=== PATIENT | male | born 1945 | race Two or more races ===

== ENCOUNTER 2018-04-15 10:08 | Inpatient (IN) | payer MEDICARE, OTHER ==
[~2018-04-15] VITALS: Ht 167.6 cm; Wt 65.8 kg
--- NOTE | 2018-04-15 10:10 | NUR ---
ALYSIA 4 SEASONS D/T MULTIPLE WOUNDS: SACRAL, BILATERAL LOWER EXT., LFA , VSS , AOX1-2 GREEK SPEAKING , WILL CONTINUE TO MONITOR
--- NOTE | 2018-04-15 10:15 | NUR ---
BLOOD SPECIMEN , WOUND CULTURE OBTAINED , LABELED AND SENT TO LAB , ATTACHED PT TO MONITOR , VSS , WILL CONTINUE TO MONITOR
--- NOTE | 2018-04-15 10:15 | NUR ---
RECEIVED WITH GARCIA CATHETHER FROM [facility] , DRAINING WITH CLEAR YELLOW URINE ,
[2018-04-15 10:50] LABS: BASOPHILS # (AUTO) 0.1 /CMM (0.0-0.2); BASOPHILS % (AUTO) 0.9 % (0.0-2.0); EOSINOPHILS % (AUTO) 3.7 % (0.0-6.0); HEMATOCRIT 33 % (39-51); HEMOGLOBIN 11.3 g/dL (13.5-17.5); LYMPHOCYTES # (AUTO) 1.7 /CMM (0.8-4.8); LYMPHOCYTES % (AUTO) 16.7 % (20.0-44.0); MEAN CORPUSCULAR HEMOGLOBIN 30 PG (26.0-33.0); MEAN CORPUSCULAR HGB CONC 34 g/dl (31.0-36.0); MEAN CORPUSCULAR VOLUME 88 fL (80-96); MONOCYTES # (AUTO) 0.4 /CMM (0.1-1.30); MONOCYTES % (AUTO) 3.7 % (2.0-12.0); NEUTROPHILS # (AUTO) 7.6 /CMM (1.8-8.9); PLATELET COUNT (AUTO) 484 /CMM (150-450); RDW COEFFICIENT OF VARIATION 14.1 (11.5-15.0); RED BLOOD CELL COUNT(AUTO) 3.79 MIL/uL (4.5-6.0); WHITE BLOOD COUNT (AUTO) 10.2 K/uL (4.3-11.0)
[2018-04-15 11:00] LABS: CALCIUM, SERUM 9.3 mg/dL (8.5-10.1); CARBON DIOXIDE 29 mmol/L (21-32); CHLORIDE 101 mmol/L (98-107); CREATININE 0.8 mg/dL (0.6-1.3); GLUCOSE 131 mg/dL (74-106); POTASSIUM 4.2 mmol/L (3.5-5.1); SODIUM SERUM 135 mmol/L (136-145); UREA NITROGEN, BLOOD 11 mg/dL (7-18)
[2018-04-15] MEDS ORDERED: IV NS 0.9% 500 ML BAG IV ONE (11:00)
[2018-04-15 11:07] LABS: INR 0.97 (0.85-1.15)
[2018-04-15 11:08] LABS: ALANINE AMINOTRANSFERASE 34 U/L (12-78); ALBUMIN 2.9 g/dL (3.4-5.0); ALKALINE PHOSPHATASE 87 U/L (46-116); ASPARTATE AMINOTRANSFERASE 17 U/L (15-37); BILIRUBIN,DIRECT 0.1 mg/dL (0.0-0.2); BILIRUBIN,TOTAL 0.2 mg/dL (0.2-1.0); TOTAL PROTEIN, SERUM 7.6 g/dL (6.4-8.2); TROPONIN I < 0.017 ng/mL (0.00-0.056)
[2018-04-15] MEDS ORDERED: PANT40TA2 PO (11:09)
[2018-04-15] MEDS ORDERED: HYDR-552 PO (11:09)
[2018-04-15] MEDS ORDERED: ASCO500T9 PO (11:09)
[2018-04-15] MEDS ORDERED: GABA300C PO (11:09)
[2018-04-15] MEDS ORDERED: BISA10SU8 RC (11:09)
[2018-04-15] MEDS ORDERED: ACET325C5 PO (11:09)
[2018-04-15] MEDS ORDERED: ZINC220T PO (11:09)
[2018-04-15] MEDS ORDERED: ASPI-1152 PO (11:09)
[2018-04-15] MEDS ORDERED: CRAN500C4 PO (11:09)
[2018-04-15] MEDS ORDERED: METO25TA20 GT (11:09)
[2018-04-15] MEDS ORDERED: AMLO5TAB4 PO (11:09)
[2018-04-15] MEDS ORDERED: CLOP75TA15 PO (11:09)
[2018-04-15] MEDS ORDERED: MULT1TAB73 PO (11:09)
[2018-04-15] MEDS ORDERED: FLUO20CA36 PO (11:09)
[2018-04-15] MEDS ORDERED: NA P133E RC (11:09)
[2018-04-15] MEDS ORDERED: ATOR20TA PO (11:09)
[2018-04-15] MEDS ORDERED: ENOX40DI SQ (11:09)
[2018-04-15] MEDS ORDERED: MAGN400O6 PO (11:09)
[2018-04-15] MEDS ORDERED: CRAN500C5 PO ×2 (11:11→11:44)
[2018-04-15] MEDS ORDERED: FERR325T24 PO ×2 (11:14→11:44)
--- NOTE | 2018-04-15 11:14 | NUR ---
VERIFIED WITH DR VEGA IF SHE WANTS TO ORDER WOUND CULTIRE FOR THE RIGHT HEEL NOTED WITH MINIMAL YELLOW DRAINAIGE , OK WITH IT
--- NOTE | 2018-04-15 11:15 | NUR ---
NOTIFIED DR VEGA REGARDING LACTIC ACID OF 2.2 , RECEIVED ORDER OF IV ZOSYN ,
[2018-04-15] MEDS ORDERED: IPRA0.2S9 IH (11:22)
[2018-04-15] MEDS ORDERED: PIPERACILLIN /TAZOBACTAM 3.375 G in IV D5W 50 ML IV ONE (11:30)
[2018-04-15] MEDS ORDERED: ONDA4SOL2 PO (11:32)
[2018-04-15] MEDS ORDERED: LEVA1.2528 IH (11:32)
[2018-04-15] MEDS ORDERED: COLL30OI TP (11:32)
--- NOTE | 2018-04-15 12:06 | NUR ---
[facility] - FITTING ROOM SUPERVISOR DR. DHILLON
--- NOTE | 2018-04-15 13:10 | NUR ---
RPOERT GIVEN TO LAUREN IRWIN FOR CONTINUITY OF CARE , ALL QUESTIONS ANSWERED . VSS STABLE
--- NOTE | 2018-04-15 14:00 | NUR ---
SLURRY CONTROL TENDER NOTE RECEIVED PT FROM ER. PT IS STABLE AND RESTING IN BED. NO S/S OF RESP DISTRESS OR SOB. PT IS ON 2L O2 VIA NC. VSS. WOUNDS PRESENT ON BILATERAL HIPS, SACRUM, RIGHT HEEL AND LEFT ANKLE. WOUND PHOTOS TAKEN AND PLACED IN CHART. ADMISSION ORDERS RECEIVED. SAFETY MEASURES IN PLACE, CALL LIGHT WITHIN REACH. WILL ENDORSE TO HOME AGENT FOR CHEN.
[2018-04-15 16:00] VITALS: BP 98/59
--- NOTE | 2018-04-15 18:43 | NUR ---
RN CLOSING NOTES PT IN BED RESTING. NO S/S OF RESP DISTRESS OR SOB. NO C/O PAIN AT THIS TIME. PT IS TO HAVE DEBRIDEMENT OF SACRAL AND BILATERAL HIP WOUNDS ON 04/16/18. VERBAL CONSENT FOR PROCEDURE OBTAINED. ALL PT NEEDS ANTICIPATED AND MET, SAFETY MEASURES IN PLACE, CALL LIGHT WITHIN REACH. WILL ENDORSE TO DRUG AND ALCOHOL COUNSELOR FOR CHEN.
[2018-04-15] MEDS: IV NS 0.9% 1,000 ML IV PRN (19:00)
[2018-04-15] MEDS: ZOSYN IVPB 3.375 G in IV D5W 50ml IV SCH (19:00)
--- NOTE | 2018-04-15 19:45 | NUR ---
RN NOTES SPOKE WITH PATIENT'S DAUGHTER. DAUGHTER STATED THAT SHE WOULD ONLY GIVE CONSENT FOR LOCAL ANESTHESIA. WILL ENDORSE TO DAY SHIFT NURSE TO FOLLOW UP ON ANESTHESIA THAT WILL BE USED FOR THE DEBRIDEMENT.
[2018-04-15 20:00] VITALS: BP 128/72
--- NOTE | 2018-04-15 20:00 | NUR ---
RN NOTES CALLED DR DHILLON. PER MESSAGING SERVICE UNAVAILABLE UNLESS EMERGENCY. WILL ENDORSE TO DAY SHIFT.
--- NOTE | 2018-04-15 20:15 | NUR ---
RN OPENING NOTES PT AWAKE AND RESTING IN BED. PT ALERT AND ORIENTED TO SELF. NO APPARENT S/S OF PAIN, DISTRESS OR SOB AT THIS TIME. PER DAY SHIFT NURSE PT WILL HAVE DEBRIDEMENT OF SACRAL AND BILATERAL HIP WOUNDS TOMORROW 04/16/18. WILL CALL DAUGHTER FOR CONSENT. PT HAS A RIGHT FOREARM IV #18 RUNNING NS @75ML/HR. PT TOLERATING FLUIDS WELL. SAFETY PRECAUTIONS IN PLACE, BED IN LOWEST LOCKED POSITION, X3 SIDERAILS UP. CALL LIGHT WITHIN REACH WILL CONTINUE TO MONITOR.
[2018-04-16] VITALS: BP 133/79
[2018-04-16] MEDS: ZOSYN IVPB 3.375 G in IV D5W 50ml IV SCH ×4 (00:17→17:22)
[2018-04-16] MEDS: IV NS 0.9% 1,000 ML IV PRN ×2 (02:40→18:30)
[2018-04-16 04:00] VITALS: BP 96/40
[2018-04-16 06:14] LABS: BASOPHILS % (AUTO) 0.4 % (0.0-2.0); EOSINOPHILS % (AUTO) 5.2 % (0.0-6.0); HEMATOCRIT 32 % (39-51); HEMOGLOBIN 10.6 g/dL (13.5-17.5); LYMPHOCYTES # (AUTO) 1.8 /CMM (0.8-4.8); LYMPHOCYTES % (AUTO) 19.1 % (20.0-44.0); MEAN CORPUSCULAR HEMOGLOBIN 30 PG (26.0-33.0); MEAN CORPUSCULAR HGB CONC 33 g/dl (31.0-36.0); MEAN CORPUSCULAR VOLUME 91 fL (80-96); MONOCYTES # (AUTO) 0.6 /CMM (0.1-1.30); MONOCYTES % (AUTO) 6.3 % (2.0-12.0); NEUTROPHILS # (AUTO) 6.4 /CMM (1.8-8.9); PLATELET COUNT (AUTO) 394 /CMM (150-450); RDW COEFFICIENT OF VARIATION 15.1 (11.5-15.0); RED BLOOD CELL COUNT(AUTO) 3.53 MIL/uL (4.5-6.0); WHITE BLOOD COUNT (AUTO) 9.2 K/uL (4.3-11.0)
--- NOTE | 2018-04-16 06:14 | NUR ---
RN NOTES PT TELE MONITOR NOTED 5.57 SEC OF ASYSTOLE. SUKHDEV OKEEFE. WILL FOLLOW UP.
[2018-04-16 06:26] LABS: CALCIUM, SERUM 8.7 mg/dL (8.5-10.1); CARBON DIOXIDE 26 mmol/L (21-32); CHLORIDE 104 mmol/L (98-107); CREATININE 0.8 mg/dL (0.6-1.3); GLUCOSE 102 mg/dL (74-106); MAGNESIUM 1.9 mg/dL (1.8-2.4); PHOSPHORUS 3.1 mg/dL (2.5-4.9); POTASSIUM 3.9 mmol/L (3.5-5.1); SODIUM SERUM 139 mmol/L (136-145); UREA NITROGEN, BLOOD 8 mg/dL (7-18)
--- NOTE | 2018-04-16 06:43 | NUR ---
RN NOTES DR SEVERINO RETURNED CALL. NO NEW ORDERS. CONTINUE TELE MONITORING.
--- NOTE | 2018-04-16 06:52 | NUR ---
RN CLOSING NOTES PT RESTING IN BED. PT ALERT AND ORIENTED TO SELF. NO APPARENT S/S OF PAIN, DISTRESS OR SOB. PT SCHEDULED FOR 1500 DEBRIDEMENT. WILL ENDORSE PROCEDURAL CONSENT TO DAY SHIFT PER DAUGHTERS REQUEST OF LOCAL ANESTHESIA ONLY. PT HAS A RIGHT FOREARM IV #18 RUNNING NS @75ML/HR. PT TOLERATING FLUIDS WELL. ALL PATIENT NEEDS MET OVERNIGHT. SAFETY PRECAUTIONS IN PLACE, BED IN LOWEST LOCKED POSITION, X3 SIDE RAILS UP. CALL LIGHT WITHIN REACH WILL ENDORSE TO DAY SHIFT NURSE FOR CONTINUITY OF CARE.
--- NOTE | 2018-04-16 07:10 | NUR ---
RN NOTES PT IS LAYING DOWN IN BED,AWAKE AND RESTING COMFORTABLY. PT ON RA, RESPIRATIONS ARE EVEN AND UNLABORED. IV ON RFA INTACT AND RUNNING NS @ 75 ML/HR. GARCIA CATHETER IS IN PLACE AND DRAINING TO GRAVITY. NO SIGNS OF DISTRESS NOTED. SAFETY MEASURES ARE IN PLACE, CALL LIGHT IS IN REACH. WILL CONTINUE TO MONITOR.
[2018-04-16 08:00] VITALS: BP 121/81
[2018-04-16] MEDS ORDERED: BISACODYL SUPP (10 MG) 10 MG/SUPP.RECT SUPP.RECT RC PRN (08:00)
[2018-04-16] MEDS ORDERED: MAGNESIUM HYDROXIDE 30 ML UDC PO PRN (08:00)
[2018-04-16] MEDS: ASPIRIN EC 81 MG TABLET.DR PO SCH (08:08)
[2018-04-16] MEDS: CLOPIDOGREL BISULFATE 75 MG TABLET PO SCH (08:08)
[2018-04-16] MEDS: GABAPENTIN 300 MG CAPSULE PO SCH ×3 (08:08→17:00)
[2018-04-16] MEDS: FLUOXETINE HCL 20 MG CAPSULE PO SCH (08:09)
[2018-04-16] MEDS: ASCORBIC ACID 500 MG TABLET PO SCH ×2 (08:09→17:00)
[2018-04-16] MEDS ORDERED: ACETAMINOPHEN 325 MG TABLET PO PRN (08:30)
[2018-04-16 08:36] LABS: THYROID STIMULATING HORMONE 3.281 uIU/mL (0.358-3.74)
[2018-04-16] MEDS: ENOXAPARIN SODIUM 40 MG/0.4 ML DISP.SYRIN SQ SCH (08:54)
[2018-04-16] MEDS ORDERED: COLLAGENASE 15 GM TUBE TP SCH (09:00)
[2018-04-16] MEDS ORDERED: LIDOCAINE 0.5%-EPI 1:200,000 50 ML VIAL ONE (15:14)
[2018-04-16 16:00] VITALS: BP 126/77
[2018-04-16] MEDS: FERROUS SULFATE (325 MG) 325 MG/TAB TABLET PO SCH (17:00)
--- NOTE | 2018-04-16 18:44 | NUR ---
RN NOTES PT IS LAYING DOWN IN BED, RESTING COMFORTABLY. PT ON 2L O2, RESPIRATIONS ARE EVEN AND UNLABORED. IV ON RFA INTACT AND RUNNING NS @ 75ML/HR. WOUND DEBRIDEMENT DONE BY DR. PAINTER AND DR. AKINS AND DRESSINGS CHANGED. GARCIA CATHETER IS IN PLACE AND DRAINING TO GRAVITY. NO SIGNS OF DISTRESS NOTED. SAFETY MEASURES ARE IN PLACE, CALL LIGHT IS IN REACH. WILL ENDORSE TO HYBRID CORN BREEDER RN FOR CONTINUITY OF CARE.
--- NOTE | 2018-04-16 19:20 | NUR ---
MS RN NOTES RECEIVED ON BED A/O X 1-2, WITH PERIODS OF CONFUSION.S/P WOUND DEBRIDEMENT ON BILATERAL HIP,SACRUM AND RIGHT HEEL.DRESSING INTACT AND DRY.NS AT 75ML/HR RATE IN PROGRESS VIA IV PUMP ON RFA.WILL CONTINUE TO MONITOR STATUS.
[2018-04-16 20:00] VITALS: BP 145/85
--- NOTE | 2018-04-16 20:30 | NUR ---
MS RN NOTES NEW SALINE LOCK PLACE ON RIGHT HAND #22,SECURED WITH KERLIX.SAME IV FLUIDS INFUSING NS AT 75ML/HR RATE VIA IV PUMP.
--- NOTE | 2018-04-16 20:40 | NUR ---
MS RN NOTES PATIENT PULLED OUT HIS IV ACCESS WITH SLIGHT BLEEDING NOTED.
--- NOTE | 2018-04-17 | NUR ---
MS RN NOTES DUE IV ZOSYN IVPN HUNG,INFUSING VIA IV PUMP.
[2018-04-17] MEDS: ZOSYN IVPB 3.375 G in IV D5W 50ml IV SCH ×4 (00:01→17:58)
--- NOTE | 2018-04-17 00:12 | NUR ---
MS RN NOTES PATIENT PULLED OUT DRESSING ON RIGHT HIP.PRESSURE DRESSING APPLIED.REPOSITION.
--- NOTE | 2018-04-17 00:30 | NUR ---
MS RN NOTES TRIED TO PAGE DR LOGAN UNDER WOUND MANAGEMENT,NOT ON THE OPTION,LEAVE MESSAGE ON VOICEMAIL,AWAITING TO CALL BACK.
--- NOTE | 2018-04-17 01:00 | NUR ---
MS RN NOTES STILL BLEEDING RIGHT HIP WOUND,SHOWED TO THE CHARGE NURSE,PRESSURE DRESSING RE IN FORCED.HAND MITTENS APPLIED TO RIGHT HAND.PATIENT TRIED TO TAKE OUT DRESSING ON RIGHT HIP.
--- NOTE | 2018-04-17 01:50 | NUR ---
MS RN NOTES MD SAFETY TEACHER PAGE FOR PAIN MANAGEMENT.
--- NOTE | 2018-04-17 01:52 | NUR ---
MS RN NOTES DR MIKKI SNIDER CALLED BACK,CUSTOMER CARE SPECIALIST FOR TONIGHT WITH ORDER OF MORPHINE 2MG Q 4 HOURS PRN FOR SEVERE PAIN NOTED AND CARRIED OUT.
[2018-04-17] MEDS: MORPHINE SULFATE INJ 2 MG/ML DISP.SYRIN IV PRN ×3 (02:08→18:31)
--- NOTE | 2018-04-17 02:08 | NUR ---
MS RN NOTES PAIN MANAGEMENT MOANING IN PAIN,MORPHINE 2MG IV GIVEN ORDERED.
[2018-04-17 06:44] LABS: BASOPHILS % (AUTO) 0.4 % (0.0-2.0); EOSINOPHILS % (AUTO) 0.4 % (0.0-6.0); HEMATOCRIT 31 % (39-51); HEMOGLOBIN 10.4 g/dL (13.5-17.5); LYMPHOCYTES # (AUTO) 1.4 /CMM (0.8-4.8); LYMPHOCYTES % (AUTO) 12.9 % (20.0-44.0); MEAN CORPUSCULAR HEMOGLOBIN 30 PG (26.0-33.0); MEAN CORPUSCULAR HGB CONC 33 g/dl (31.0-36.0); MEAN CORPUSCULAR VOLUME 91 fL (80-96); MONOCYTES # (AUTO) 0.6 /CMM (0.1-1.30); MONOCYTES % (AUTO) 5.5 % (2.0-12.0); NEUTROPHILS # (AUTO) 8.6 /CMM (1.8-8.9); NEUTROPHILS % (AUTO) 80.8 % (43.0-81.0); PLATELET COUNT (AUTO) 451 /CMM (150-450); RDW COEFFICIENT OF VARIATION 15.5 (11.5-15.0); RED BLOOD CELL COUNT(AUTO) 3.44 MIL/uL (4.5-6.0); WHITE BLOOD COUNT (AUTO) 10.7 K/uL (4.3-11.0)
--- NOTE | 2018-04-17 06:52 | NUR ---
MS RN NOTES SILL WITH MINIMAL BLEEDING ON RIGHT HIP,RE IN FORCED DRESSING.REPOSITION PER PROTOCOL.TRIED TO CALL SURGERY CURT FIND OUT IF DR LOGAN IS AROUND ALREADY BUT HE'S NOT THER YET.STILL WITH EPISODE OF CONFUSION.WILL ENDORSE TO DAY NURSE FOR CHEN.
[2018-04-17 07:03] LABS: CARBON DIOXIDE 23 mmol/L (21-32); CHLORIDE 102 mmol/L (98-107); CREATININE 0.7 mg/dL (0.6-1.3); GLUCOSE 153 mg/dL (74-106); MAGNESIUM 1.9 mg/dL (1.8-2.4); PHOSPHORUS 2.7 mg/dL (2.5-4.9); POTASSIUM 3.5 mmol/L (3.5-5.1); SODIUM SERUM 138 mmol/L (136-145); UREA NITROGEN, BLOOD 5 mg/dL (7-18)
[2018-04-17] MEDS: PANTOPRAZOLE 40 MG TABLET.DR PO SCH (07:30)
[2018-04-17 08:00] VITALS: BP 95/65
--- NOTE | 2018-04-17 08:00 | NUR ---
MS RN NOTES PATIENT IN BED RESTING NO SOB OR ACUTE DISTRESS NOTED. PATIENT ALERT, ORIENTED X1 CONFUSED. PERIPHERAL IV INTACT PATENT. BED IN LOW LOCKED POSITION. CALL LIGHT WITHIN REACH. PATIENT VERBALIZES PAIN TO BLE. WILL CONTINUE TO MONITOR CLOSELY.
[2018-04-17] MEDS: FERROUS SULFATE (325 MG) 325 MG/TAB TABLET PO SCH ×2 (09:00→16:26)
[2018-04-17] MEDS: FLUOXETINE HCL 20 MG CAPSULE PO SCH (09:00)
[2018-04-17] MEDS: GABAPENTIN 300 MG CAPSULE PO SCH ×3 (09:00→16:26)
[2018-04-17] MEDS: ASPIRIN EC 81 MG TABLET.DR PO SCH (09:00)
[2018-04-17] MEDS: ASCORBIC ACID 500 MG TABLET PO SCH ×2 (09:00→16:25)
[2018-04-17] MEDS: CLOPIDOGREL BISULFATE 75 MG TABLET PO SCH (09:00)
[2018-04-17] MEDS: ENOXAPARIN SODIUM 40 MG/0.4 ML DISP.SYRIN SQ SCH (11:00)
[2018-04-17] MEDS: IV NS 0.9% 1,000 ML IV PRN (11:15)
[2018-04-17] MEDS: DAKINS HALF STRENGTH (0.25%) 480 ML BOTTLE TOP SCH (13:03)
[2018-04-17 16:00] VITALS: BP 100/68
[2018-04-17] MEDS: ENSURE ENLIVE 237 ML LIQUID (VANILLA) PO SCH (17:00)
--- NOTE | 2018-04-17 19:20 | NUR ---
MS RN OPENING NOTE Patient was seen sitting in high-Marquis's position in bed AAOx2, breathing on 2L O2 NC with no SOB, and no signs of acute distress. Georges cath is draining clear, yellow urine. NS at 75ml/hr is running through the right hand IV with no signs of leakage or infiltration. Bed is low/locked, two side rails up, and call dunne within reach. Patient remains comfortable and has no immediate needs at this time. Will continue to monitor.
--- NOTE | 2018-04-17 19:25 | NUR ---
MS RN NOTES PATIENT IN BED RESTING NO SOB OR ACUTE DISTRESS NOTED. ALL DUE MEDICATIONS ADMINISTERED. ALL NEEDS MET. WILL ENDORSE TO PM SHIFT CHEN.
[2018-04-17] MEDS ORDERED: FEE PK DOSING 1 MIN EA MC ONE (19:48)
[2018-04-17 20:00] VITALS: BP 123/73
[2018-04-17] MEDS: TOBRAMYCIN 100 MG in IV D5W 50 ML IV SCH (20:40)
[2018-04-18] MEDS: IV NS 0.9% 1,000 ML IV PRN (03:03)
--- NOTE | 2018-04-18 07:20 | NUR ---
MS RN CLOSING NOTE Patient slept well overnight with no complications and remains in stable condition. Wound care was provided as ordered overnight. All patient needs have been addressed. Patient care endorsed to day shift nurse.
--- NOTE | 2018-04-18 07:30 | NUR ---
AM RN NOTE Received patient awake in his bed, no SOB noted resp even and non-labored. IV site intact and patent. Bed in low locked position. Will continue to monitor.
--- NOTE | 2018-04-18 07:45 | NUR ---
PATIENT RESTING IN BED. NONLABORED BREATHING NOTED ON ROOM AIR. PATIENT AOX2-3. IV SITE ON RIGHT HAND GAUGE 20 PATENT AND INTACT. GARCIA CATHETER DRAINING URINE YELLOW CLOUDY. BED IN LOWEST LOCKED POSITION. CALL LIGHT WITHIN REACH. RECEIVED REPORT FROM JUNI NOW
[2018-04-18 08:00] VITALS: BP 134/83
--- NOTE | 2018-04-18 08:03 | NUR ---
AM RN NOTE Care endorsed to Nurse (Nishi).
[2018-04-18 08:04] LABS: CALCIUM, SERUM 8.5 mg/dL (8.5-10.1); CARBON DIOXIDE 24 mmol/L (21-32); CHLORIDE 106 mmol/L (98-107); CREATININE 0.6 mg/dL (0.6-1.3); GLUCOSE 108 mg/dL (74-106); POTASSIUM 3.2 mmol/L (3.5-5.1); SODIUM SERUM 141 mmol/L (136-145); UREA NITROGEN, BLOOD 2 mg/dL (7-18)
[2018-04-18] MEDS: PANTOPRAZOLE 40 MG TABLET.DR PO SCH (08:57)
[2018-04-18] MEDS: ASCORBIC ACID 500 MG TABLET PO SCH ×2 (09:04→16:56)
[2018-04-18] MEDS: FERROUS SULFATE (325 MG) 325 MG/TAB TABLET PO SCH ×2 (09:05→16:55)
[2018-04-18] MEDS: GABAPENTIN 300 MG CAPSULE PO SCH ×3 (09:05→16:56)
[2018-04-18] MEDS: FLUOXETINE HCL 20 MG CAPSULE PO SCH (09:06)
[2018-04-18] MEDS: ASPIRIN EC 81 MG TABLET.DR PO SCH (09:06)
[2018-04-18] MEDS: CLOPIDOGREL BISULFATE 75 MG TABLET PO SCH (09:07)
[2018-04-18] MEDS: ENOXAPARIN SODIUM 40 MG/0.4 ML DISP.SYRIN SQ SCH (09:08)
[2018-04-18] MEDS: TOBRAMYCIN 100 MG in IV D5W 50 ML IV SCH ×2 (09:58→21:00)
[2018-04-18] MEDS: DAKINS HALF STRENGTH (0.25%) 480 ML BOTTLE TOP SCH (09:58)
[2018-04-18] MEDS: ENSURE ENLIVE 237 ML LIQUID (VANILLA) PO SCH ×2 (09:58→16:57)
[2018-04-18] MEDS: POTASSIUM CHLORIDE 20 MEQ TAB.PRT.SR PO SCH ×3 (11:34→14:31)
--- NOTE | 2018-04-18 14:29 | NUR ---
PATIENT WAS REFUSING TO TAKE THIRD POTASSIUM DOSAGE. PATIENT EDUCATED AND BENEFITS AND RISKS EXPLAINED MULTIPLE TIMES PATIENT AGREED TO TAKE IT
--- NOTE | 2018-04-18 15:07 | NUR ---
RN NOTES: PER MD ORDERS, POTASSIUM LAB DRAW TO BE DONE TOMORROW AFTER REPLACEMENT PER PROTOCOL
[2018-04-18 16:00] VITALS: BP 104/55
--- NOTE | 2018-04-18 19:22 | NUR ---
RN NOTES: PATIENT RESTING IN BED. NONLABORED BREATHING NOTED ON ROOM AIR. PATIENT AOX2-3. IV SITE ON RIGHT HAND GAUGE 20 PATENT AND INTACT. GARCIA CATHETER DRAINING URINE YELLOW CLEARR. BED IN LOWEST LOCKED POSITION. CALL LIGHT WITHIN REACH. WOUND CARE DONE. PATIENT TURNED AND REPOSITIONED EVERY TWO HOURS PATIENT ENCOURAGED TO MEET NUTRITIONAL GOAL, PATIENT REFUSING TO EAT DINNER. SPOKE WITH AND SON- EDUCATED SON, , AND PATIENT ON BENEFITS AND RISKS OF MAINTAINING APPROPRIATE CALORIC INTAKE. PATIENT STILL REFUSING TO INCREASE INTAKE
--- NOTE | 2018-04-18 19:23 | NUR ---
RN NOTES ENDORSED TO NEXT RN
--- NOTE | 2018-04-18 19:30 | NUR ---
RN NOTES RECEIVED PT. AWAKE ON BED, A/OX2, DRESSING ON THE RIGHT HIP DRY AND INTACT, DENIES PAIN, NO SOB, BED IN LOCKED POSITION, CALL LIGHT WITHIN REACH, SIDERAILSUPX2, CONTINUE TO MONITOR
--- NOTE | 2018-04-18 20:00 | NUR ---
RN NOTES PT. REFUSED TO HAVE HIS V./S CHECKED.. EXPLAINED THE IMPORTANCE OF THIS BUT PT STILL REFUSING
--- NOTE | 2018-04-18 20:32 | NUR ---
RN NOTES PT IS REFUSING BLOOD DRAW FOR TOBRAMYCIN THROUGH TALKED TO THE PT. REGARDING THE IMPORTANCE OF HIS BLOOD DRAW , [facility] NURSE TALKED TO HIM WELL BUT PT. STILL REFUSED.. HE'S ALSO REFUSING HIS ANTIBIOTIC
[2018-04-19] VITALS: BP 148/75
[2018-04-19 00:05] VITALS: BP 148/75
[2018-04-19 05:59] LABS: BASOPHILS % (AUTO) 0.4 % (0.0-2.0); HEMATOCRIT 32 % (39-51); HEMOGLOBIN 10.7 g/dL (13.5-17.5); LYMPHOCYTES # (AUTO) 1.8 /CMM (0.8-4.8); LYMPHOCYTES % (AUTO) 24.5 % (20.0-44.0); MEAN CORPUSCULAR HEMOGLOBIN 30 PG (26.0-33.0); MEAN CORPUSCULAR HGB CONC 33 g/dl (31.0-36.0); MEAN CORPUSCULAR VOLUME 91 fL (80-96); MONOCYTES # (AUTO) 0.4 /CMM (0.1-1.30); MONOCYTES % (AUTO) 5.8 % (2.0-12.0); NEUTROPHILS # (AUTO) 4.7 /CMM (1.8-8.9); NEUTROPHILS % (AUTO) 63.3 % (43.0-81.0); PLATELET COUNT (AUTO) 476 /CMM (150-450); RDW COEFFICIENT OF VARIATION 15.1 (11.5-15.0); RED BLOOD CELL COUNT(AUTO) 3.52 MIL/uL (4.5-6.0); WHITE BLOOD COUNT (AUTO) 7.5 K/uL (4.3-11.0)
[2018-04-19 06:15] LABS: CALCIUM, SERUM 9.2 mg/dL (8.5-10.1); CARBON DIOXIDE 25 mmol/L (21-32); CHLORIDE 105 mmol/L (98-107); CREATININE 0.6 mg/dL (0.6-1.3); GLUCOSE 100 mg/dL (74-106); MAGNESIUM 1.8 mg/dL (1.8-2.4); PHOSPHORUS 2.3 mg/dL (2.5-4.9); POTASSIUM 3.7 mmol/L (3.5-5.1); SODIUM SERUM 142 mmol/L (136-145); UREA NITROGEN, BLOOD 1 mg/dL (7-18)
--- NOTE | 2018-04-19 06:48 | NUR ---
RN NOTES AWAKE, MORNING CARE RENDERED, CALL LIGHT WITHIN REACH, CINDYAILSUPX2, PT. NEEDS ATTENDED
--- NOTE | 2018-04-19 07:18 | NUR ---
RN NOTES PATIENT RESTING IN BED. NONLABORED BREATHING NOTED ON ROOM AIR. PATIENT AOX2-3. IV SITE ON RIGHT HAND GAUGE 20 PATENT AND INTACT. GARCIA CATHETER DRAINING URINE YELLOW CLEAR URINE. BED IN LOWEST LOCKED POSITION. CALL LIGHT WITHIN REACH.
[2018-04-19 08:00] VITALS: BP 164/81
--- NOTE | 2018-04-19 08:13 | NUR ---
SPOKE WITH HARISH FROM PHARMACY, INFORMED HER THAT PATIENT REFUSED PEAK AND TROUGH YESTERDAY WELL 2100 DOSE OF TOBRAMYCIN. PER HARISH, PHARMACIST, OK TO GIVE 0900 TOBRAMYCIN DOSE. PHARMACIST TO FOLLOW UP WITH MD REGARDING PEAK AND TROUGH
[2018-04-19 08:47] VITALS: BP 154/82
[2018-04-19] MEDS: ASCORBIC ACID 500 MG TABLET PO SCH ×2 (09:03→18:26)
[2018-04-19] MEDS: GABAPENTIN 300 MG CAPSULE PO SCH ×3 (09:04→18:26)
[2018-04-19] MEDS: FERROUS SULFATE (325 MG) 325 MG/TAB TABLET PO SCH ×2 (09:04→18:26)
[2018-04-19] MEDS: FLUOXETINE HCL 20 MG CAPSULE PO SCH (09:05)
[2018-04-19] MEDS: CLOPIDOGREL BISULFATE 75 MG TABLET PO SCH (09:06)
[2018-04-19] MEDS: ASPIRIN EC 81 MG TABLET.DR PO SCH (09:06)
[2018-04-19] MEDS: ENOXAPARIN SODIUM 40 MG/0.4 ML DISP.SYRIN SQ SCH (09:07)
[2018-04-19] MEDS: PANTOPRAZOLE 40 MG TABLET.DR PO SCH (09:09)
[2018-04-19] MEDS: DAKINS HALF STRENGTH (0.25%) 480 ML BOTTLE TOP SCH (09:13)
[2018-04-19] MEDS: ENSURE ENLIVE 237 ML LIQUID (VANILLA) PO SCH ×2 (09:13→18:27)
--- NOTE | 2018-04-19 09:40 | NUR ---
SPOKE TO HARISH FROM PHARMACY, HOLD 0900 TOBRAMYCIN DOSAGE TILL TOBRAMYCIN, RANDOM- RESULTS ARE AVAILABLE
--- NOTE | 2018-04-19 11:39 | NUR ---
SPOKE WITH LESLEY FROM LAB, TOBRAMYCIN RANDOM TO RESULT AROUND 1500. PHARMACY NOTIFIED. AWAITING RESPONSE FROM PHARMACY
--- NOTE | 2018-04-19 11:43 | NUR ---
SPOKE WITH HARISH FROM PHARMACY- WI TO GIVE DOSE OF AM TOBRAYMCIN TILL LAB RESULTS. VERBAL READBACK DONE
[2018-04-19 11:52] VITALS: BP 126/80
[2018-04-19] MEDS: TOBRAMYCIN 100 MG in IV D5W 50 ML IV SCH ×2 (12:13→20:48)
[2018-04-19] MEDS ORDERED: NEUTRA PHOS 1 POWD.PACKET PO ONE (13:00)
--- NOTE | 2018-04-19 14:25 | NUR ---
PATIENT NOW AGREED TO TAKE GABAPENTIN WELL NEUTRA PHOS. WAS REFUSING EARLIER. BENEFITS AND RISKS WERE DISCUSSED WITH PATIENT
--- NOTE | 2018-04-19 18:22 | NUR ---
PATIENT REFUSING WOUND CARE DRESSINGS. BENFITS AND RISKS EXPLAINED MULTIPLE TIMES. WOUND CARE OFFERED MULTIPLE TIMES THROUGHOUT SHIFT. PATIENT STILL REFUSING. PATIENT'S FAMILY EDUCATED WELL REGARDING INFECTION CONTROL PATIENT AGREED TO BE TURNED AND REPOSITIONED EVERY 2 HOURS
[2018-04-19] MEDS: FLUCONAZOLE (100 MG) 100 MG TABLET PO SCH (18:27)
--- NOTE | 2018-04-19 18:53 | NUR ---
SPOKE TO VISHAL NORIEGA BIG 6 DEALER. BIG 6 DEALER NOTIFIED THAT PATIENT REFUSING BLOOD DRAW FOR PEAK AND TROUGH. PER BIG 6 DEALER, HOLD 2100 DOSE FOR TONIGHT. ATTEMPT TO DRAW IT TOMORROW MORNING. VERBAL READBACK DONE. SPOKE TO ELIOT FROM PHARMACY- NOTIFIED HIM
--- NOTE | 2018-04-19 19:15 | NUR ---
RN NOTES PATIENT RESTING IN BED. NONLABORED BREATHING NOTED ON ROOM AIR. PATIENT AOX2-3. IV SITE ON RIGHT HAND GAUGE 20 PATENT AND INTACT. GARCIA CATHETER DRAINING URINE YELLOW CLEAR URINE. BED IN LOWEST LOCKED POSITION. CALL LIGHT WITHIN REACH. ENDORSED TO NEXT RN
--- NOTE | 2018-04-19 19:16 | NUR ---
ALIDA MARQUEZ NOTIFIED TO HOLD 2100 DOSE OF TOBRAMYCIN.
--- NOTE | 2018-04-19 19:25 | NUR ---
MS RN OPENING NOTES PATIENT IN BED ALERT ORIENTED X2. NO ACUTE DISTRESS NOTED. BREATHING UNLABORED. NO SOB NOTED. NO FACIAL GRIMACING NOTED. IV ACCESS PATENT AND INTACT. PT ON F/C DUE TO MULTIPLE WOUNDS. ACCORDING TO DAY SHIFT NURSE PT HAS BEEN REFUSING CARE DURING HER SHIFT. WILL CONTINUE CARE .
[2018-04-19 20:00] VITALS: BP 92/58
--- NOTE | 2018-04-19 20:49 | NUR ---
HELD 2100 TOBRAMYCIN PER JAZMÍN AND AND AM NURSE . PT REFUSED TOBRAMYCIN PEAK THROUGH.
--- NOTE | 2018-04-20 06:55 | NUR ---
MS RN CLOSING NOTES PATIENT IN BED ALERT ORIENTED X2. NO ACUTE DISTRESS NOTED. BREATHING UNLABORED. NO SOB NOTED. NO FACIAL GRIMACING NOTED. IV ACCESS PATENT AND INTACT. PT ON F/C DUE TO MULTIPLE WOUNDS. WOUND CARE IS DONE. BLOOD WORK FOR THE PT WAS DONE. SAFETY PRECAUTIONS IN PLACE, CALL LIGHT WITHIN REACH.
[2018-04-20 07:08] LABS: CALCIUM, SERUM 8.4 mg/dL (8.5-10.1); CARBON DIOXIDE 25 mmol/L (21-32); CHLORIDE 106 mmol/L (98-107); CREATININE 0.8 mg/dL (0.6-1.3); GLUCOSE 100 mg/dL (74-106); PHOSPHORUS 3.3 mg/dL (2.5-4.9); POTASSIUM 3.8 mmol/L (3.5-5.1); SODIUM SERUM 141 mmol/L (136-145); UREA NITROGEN, BLOOD 4 mg/dL (7-18)
--- NOTE | 2018-04-20 07:15 | NUR ---
MS/RN OPENING NOTE PATIENT ALERT AND ORIE SHILO X2. DENIES SOB. RESPIRATION REGULAR AND UNLABORED. PATIENT IN NO APPARENT DISTRESS. GARCIA CATH DRAINING FREELY. NO BLADDER DISTENSION NOTED. BED LOW AND LOCKED. SIDE RAILS UP X3. CALL LIGHT WITHIN REACH. WILL CONTINUE TO MONITOR.
[2018-04-20] MEDS: TOBRAMYCIN 100 MG in IV D5W 50 ML IV SCH ×2 (09:00→18:06)
[2018-04-20] MEDS: ENSURE ENLIVE 237 ML LIQUID (VANILLA) PO SCH ×2 (09:04→16:32)
[2018-04-20] MEDS: FERROUS SULFATE (325 MG) 325 MG/TAB TABLET PO SCH ×2 (09:05→16:30)
[2018-04-20] MEDS: ASCORBIC ACID 500 MG TABLET PO SCH ×2 (09:05→16:30)
[2018-04-20] MEDS: GABAPENTIN 300 MG CAPSULE PO SCH ×3 (09:05→16:30)
[2018-04-20] MEDS: FLUOXETINE HCL 20 MG CAPSULE PO SCH (09:05)
[2018-04-20] MEDS: CLOPIDOGREL BISULFATE 75 MG TABLET PO SCH (09:05)
[2018-04-20] MEDS: ASPIRIN EC 81 MG TABLET.DR PO SCH (09:05)
[2018-04-20] MEDS: PANTOPRAZOLE 40 MG TABLET.DR PO SCH (09:05)
[2018-04-20] MEDS: ENOXAPARIN SODIUM 40 MG/0.4 ML DISP.SYRIN SQ SCH (09:07)
--- NOTE | 2018-04-20 09:20 | NUR ---
MS/RN NOTE 0900 TOBRAMYCIN IV IS HELD DUE TO TOBRAMYCIN LAB WORK NOT DONE ON TIME DUE TO PATIENT REFUSAL. Addendum: 04/20/18 at 1528 by AUSTEN ALONSO RN ROD MENDOZA IS MADE AWARE.
[2018-04-20 09:35] VITALS: BP 117/73
[2018-04-20] MEDS: DAKINS HALF STRENGTH (0.25%) 480 ML BOTTLE TOP SCH (11:13)
[2018-04-20 14:00] VITALS: BP 106/67
--- NOTE | 2018-04-20 14:00 | NUR ---
MS/RN NOTE RECEIVED NEW ORDER TO DISCONTINUE TOBRAMYCIN IV. THE ORDER IS READ BACK, VERIFIED. NOTED AND CARRIED OUT.
[2018-04-20 16:32] VITALS: BP 115/74
[2018-04-20] MEDS: FLUCONAZOLE (100 MG) 100 MG TABLET PO SCH (16:40)
--- NOTE | 2018-04-20 17:00 | NUR ---
MS/RN NOTE RECEIVED TEL ORDER FOR TOBRAMYCIN FROM ROD MENDOZA. THE ORDER IS READ BACK, VERIFIED. NOTED AND CARRIED OUT.
--- NOTE | 2018-04-20 18:00 | NUR ---
MS/RN NOTE 1800 PER PHARM TOBRAMYCIN TO BE GIVEN ORDERED ORDERED. NO NEED FOR LAB RESULT.
--- NOTE | 2018-04-20 18:46 | NUR ---
MS/RN CLOSING NOTE PATIENT ALERT AND ORIENTED X2. REMINDERS AND REORIENTATION GIVEN ORDERED. RESPIRATION REGULAR AND UNLABORED. DENIES SOB. DENIES PAIN. PATIENT IN NO APPARENT DISTRESS AT THIS TIME. RIGHT HAND G 20 PATENT AND SALINE LOCKED. PATIENT IS ON PURRED DIET, THICKENED LIQUIDS AND TOLERATED DIET ORDER WELL. PATIENT IS A FEEDER. GARCIA CATH IN PLACE AND DRAINING CLEAR, YELLOW COLOR URINE. NO BLADDER DISTENSION NOTED. GOOD AND GENTLE SKIN CARE RENDERED. KEPT CLEAN AND COMFORTABLE. WOUND TREATMENT DONE PER ORDER AND THE PATIENT TOLERATED WELL. BED LOW AND LOCKED. SIDE RAILS UP X3. CALL LIGHT WITHIN REACH. WILL ENDORSE TO FISH BIN TENDER.
[2018-04-20 20:00] VITALS: BP 123/71
[2018-04-20 20:15] VITALS: BP 123/71
--- NOTE | 2018-04-20 20:40 | NUR ---
RECIEVED MR. GILES ALERT AND STATING HE WANTS TO GO HOME. LYING ON HIS LEFT SIDE APPEARS COMFORTABLE BED ALARM ON AND NEAR NRSG STATION
[2018-04-20] MEDS: LEVOFLOXACIN (500MG) 500 MG TABLET PO SCH (20:46)
[2018-04-21] MEDS ORDERED: TOBRAMYCIN 100 MG in IV D5W 50 ML IV SCH (01:00)
[2018-04-21] MEDS: TOBRAMYCIN 100 MG in IV D5W 50 ML IV SCH (05:57)
[2018-04-21 08:00] VITALS: BP 151/84
--- NOTE | 2018-04-21 08:05 | NUR ---
ms rn received on bed, awake,alert,oriented x2, not in any form of distress, respirations even and unlabored,no sob noted,lungs are diminished,abdomen soft,positive bowel sounds,denies pain at this tie,w ill monitor patient.
--- NOTE | 2018-04-21 09:40 | NUR ---
ms doyle breakfast served,due meds given,tolerated well.
[2018-04-21] MEDS: ASPIRIN EC 81 MG TABLET.DR PO SCH (09:55)
[2018-04-21] MEDS: CLOPIDOGREL BISULFATE 75 MG TABLET PO SCH (09:55)
[2018-04-21] MEDS: FERROUS SULFATE (325 MG) 325 MG/TAB TABLET PO SCH ×2 (09:56→17:28)
[2018-04-21] MEDS: PANTOPRAZOLE 40 MG TABLET.DR PO SCH (09:56)
[2018-04-21] MEDS: GABAPENTIN 300 MG CAPSULE PO SCH ×3 (09:56→17:28)
[2018-04-21] MEDS: FLUOXETINE HCL 20 MG CAPSULE PO SCH (09:56)
[2018-04-21] MEDS: ASCORBIC ACID 500 MG TABLET PO SCH ×2 (09:56→17:28)
[2018-04-21] MEDS: DAKINS HALF STRENGTH (0.25%) 480 ML BOTTLE TOP SCH (09:57)
[2018-04-21] MEDS: ENOXAPARIN SODIUM 40 MG/0.4 ML DISP.SYRIN SQ SCH (09:58)
[2018-04-21] MEDS: ENSURE ENLIVE 237 ML LIQUID (VANILLA) PO SCH ×2 (09:59→17:27)
--- NOTE | 2018-04-21 13:00 | NUR ---
MS RN ON BED. NO DISTRESS NOTED.
[2018-04-21 15:15] LABS: CALCIUM, SERUM 8.7 mg/dL (8.5-10.1); CARBON DIOXIDE 26 mmol/L (21-32); CHLORIDE 104 mmol/L (98-107); CREATININE 0.7 mg/dL (0.6-1.3); GLUCOSE 138 mg/dL (74-106); POTASSIUM 3.6 mmol/L (3.5-5.1); SODIUM SERUM 140 mmol/L (136-145); UREA NITROGEN, BLOOD 6 mg/dL (7-18)
[2018-04-21 16:00] VITALS: BP 111/72
--- NOTE | 2018-04-21 17:00 | NUR ---
MS RN MEDS GIVEN, ALL NEEDS ATTENDED.
[2018-04-21] MEDS: LACTOBACILLUS RHAMNOSUS GG 1 EACH CAP.SPRINK PO SCH (17:28)
[2018-04-21] MEDS: FLUCONAZOLE (100 MG) 100 MG TABLET PO SCH (17:29)
--- NOTE | 2018-04-21 20:00 | NUR ---
RECIEVED ALERT WHEN NAME SPOKEN WILL LOOK AT THE NURSE. IV TKO RIGHT HAND. DRESSINGS NOTED RIGHT HEEL/BILATERAL HIPS NO DRAINAGE. GARCIA PATENT. OFFERED FLUIDS BUT WIT HIS HAND PUSHED MY ARM AWAY. BED ALARM ACTIVATED. CALL LIGHT WITHIN HIS REACH
[2018-04-21 20:12] VITALS: BP 130/75
[2018-04-21 20:27] VITALS: BP 130/75
[2018-04-21] MEDS: LEVOFLOXACIN (500MG) 500 MG TABLET PO SCH (20:38)
--- NOTE | 2018-04-22 04:09 | NUR ---
END NOTES: ALERT AND ORIENTATED TO SELF AND SITUATION. EASILY ANGERED AND WILL SWING HIS FIST AT THE NURSE AND SAY PROFANITIES. HE DOEN'T LIKE TO BE REPOSITIONED, KEEPS ON SAYING HE WANTS TO GO HOME. TO GIVE HIM HIS PILLS I CRUSHED THEN GAVE IT IN APPLESAUCE, WOULD NOT TAKE IT KNOWING IT WAS A PILL, I COULD NOT CONVINCE HIM THE IMPORTANCE. GARCIA CATH SINAI. SLEPT BETWEEN CARE
--- NOTE | 2018-04-22 07:50 | NUR ---
ms rn receive don bed, awake,alert,oriented x2,not in any form of distress, noted to have bilateral hip wounds and sacral decub, bilateral heel wounds noted also, no complain of pain at this time,repositioned for comfort,all needs attended.
[2018-04-22 08:10] VITALS: BP 130/81
--- NOTE | 2018-04-22 09:00 | NUR ---
MS RN DUE MEDS GIVEN,TOLERATED WELL.
[2018-04-22] MEDS: GABAPENTIN 300 MG CAPSULE PO SCH ×3 (09:56→18:42)
[2018-04-22] MEDS: LACTOBACILLUS RHAMNOSUS GG 1 EACH CAP.SPRINK PO SCH ×2 (09:56→18:42)
[2018-04-22] MEDS: PANTOPRAZOLE 40 MG TABLET.DR PO SCH (09:56)
[2018-04-22] MEDS: ASCORBIC ACID 500 MG TABLET PO SCH ×2 (09:56→18:42)
[2018-04-22] MEDS: ASPIRIN EC 81 MG TABLET.DR PO SCH (09:56)
[2018-04-22] MEDS: CLOPIDOGREL BISULFATE 75 MG TABLET PO SCH (09:56)
[2018-04-22] MEDS: FLUOXETINE HCL 20 MG CAPSULE PO SCH (09:56)
[2018-04-22] MEDS: FERROUS SULFATE (325 MG) 325 MG/TAB TABLET PO SCH ×2 (09:56→18:42)
[2018-04-22] MEDS: ENSURE ENLIVE 237 ML LIQUID (VANILLA) PO SCH ×2 (09:57→18:45)
[2018-04-22] MEDS: DAKINS HALF STRENGTH (0.25%) 480 ML BOTTLE TOP SCH (09:58)
[2018-04-22] MEDS: ENOXAPARIN SODIUM 40 MG/0.4 ML DISP.SYRIN SQ SCH (09:59)
[2018-04-22] MEDS: FLUCONAZOLE (100 MG) 100 MG TABLET PO SCH (18:42)
[2018-04-22 20:00] VITALS: BP 128/79
--- NOTE | 2018-04-22 20:00 | NUR ---
MS RENÉ INITIAL NOTES RECEIVED REPORT FROM AM NURSE, SEEN PT IN BED AWAKE AND ALERT BUT SOME CONFUSION NOTED. NOTICED HE'S A LOT OF WOUND COVERED WITH DRESSING DRY AND INTACT. RE-ORIENTED WHERE HE AT AND HOW TO USED THE CALL LIGHT SYSTEM AND HE UNDERSTOOD WELL. HE'S ON [employer] MATTRESS WITH SIDE RAILS X2 UP AND BED IN LOW AND LOCK IN POSITION. KEPT HIM WARM AND COMFORTABLE AT ALL TIMES. NO SIGNS OF ANY ACUTE DISTRESS NOTED , NO SIGNS OF ANY DISCOMFORT NOTED. WILL CONTINUE MONITORING. BED ALARM SET FOR PT SAFETY.
[2018-04-22] MEDS: LEVOFLOXACIN (500MG) 500 MG TABLET PO SCH (21:51)
--- NOTE | 2018-04-22 21:55 | NUR ---
MS RENÉ NOTES ROUTINE MEDS GIVEN WITH APPLE SAUCE. ASPIRATION PRECAUTION NOTED. KEPT HIM WARM AND COMFORTABLE AT ALL TIMES. PLACE CALL LIGHT AT REACH.
--- NOTE | 2018-04-23 | NUR ---
MS SALES FORCE ADMINISTRATOR NOTES PT SLEEPING AT THIS TIME. BREATHING EVEN AND NON-LABORED. KEPT HIM WARM AND COMFORTABLE AT ALL TIMES. PLACE CALL LIGHT AT REACH. WILL CONTINUE MONITORING.
--- NOTE | 2018-04-23 07:15 | NUR ---
MS RN OPENING NOTE RECEIVED PATIENT IN BED, ALERT ORIENTED X1-2, ON ROOM AIR. TOLERATING WELL. RESPIRATIONS EVEN AND UNLABORED, IN NO APPARENT DISTRESS OR DISCOMFORT AT THIS TIME. PATIENT IS SWAZI SPEAKING, ABLE TO COMMUNICATE IN [place] BUT SPEECH IS GARBLED AND LITTLE UNCLEAR. DENIES PAIN AT THIS TIME. PATIENT IS INCONTINENT, GARCIA CATHETER IN PLACE DRAINING CLEAR YELLOW URINE. PATIENT IS WITH MULTIPLE PRESSURE ULCERS, DRESSINGS INTACT. RIGHT HAND IVC SL, PATENT AND INTACT. PATIENT KEPT CLEAN AND COMFORTABLE SAFETY MEASURES IN PLACE, BED IN LOW LOCKED POSITION, SIDE RIALS UP X3, CALL LIGHT WITHIN EASY REACH. WILL CONTINUE TO MONITOR.
--- NOTE | 2018-04-23 07:25 | NUR ---
MS HEAD REFRIGERATING ENGINEER CLOSING NOTES PT RESTING BUT AROUSES TO TOUCH, STABLE LUX THE NIGHT AND SLEPT WELL. MORN ING CARE DONE WELL WOUND CARE. ALL DUE MEDS GIVEN AND ALL NEEDS MET. KEPT HIM WARM AND COMFORTABLE AT ALL TIMES. BED ALARM SET FOR SAFETY. ENDORSE TO AM NURSE FOR CONTINUITY OF CARE.
[2018-04-23 08:00] VITALS: BP 141/86
[2018-04-23] MEDS: PANTOPRAZOLE 40 MG TABLET.DR PO SCH (08:54)
[2018-04-23] MEDS: LACTOBACILLUS RHAMNOSUS GG 1 EACH CAP.SPRINK PO SCH ×2 (08:54→16:19)
[2018-04-23] MEDS: CLOPIDOGREL BISULFATE 75 MG TABLET PO SCH (08:54)
[2018-04-23] MEDS: GABAPENTIN 300 MG CAPSULE PO SCH ×3 (08:54→16:19)
[2018-04-23] MEDS: ASPIRIN EC 81 MG TABLET.DR PO SCH (08:54)
[2018-04-23] MEDS: ASCORBIC ACID 500 MG TABLET PO SCH ×2 (08:55→16:19)
[2018-04-23] MEDS: FERROUS SULFATE (325 MG) 325 MG/TAB TABLET PO SCH ×2 (08:55→16:19)
[2018-04-23] MEDS: FLUOXETINE HCL 20 MG CAPSULE PO SCH (08:55)
[2018-04-23] MEDS: ENOXAPARIN SODIUM 40 MG/0.4 ML DISP.SYRIN SQ SCH (08:57)
[2018-04-23] MEDS: ENSURE ENLIVE 237 ML LIQUID (VANILLA) PO SCH ×2 (09:04→16:25)
[2018-04-23] MEDS: DAKINS HALF STRENGTH (0.25%) 480 ML BOTTLE TOP SCH (09:05)
[2018-04-23] MEDS: FLUCONAZOLE (100 MG) 100 MG TABLET PO SCH (16:21)
--- NOTE | 2018-04-23 17:00 | NUR ---
PATIENT REFUSED MORNING LABS AND IS NOW REFUSING AGAIN AFTER REATTEMPTING TO COLLECT BLOOD. EXPLAINED THE RISKS AND BENEFITS TO THE PATIENT IN HIS OWN LANGUAGE, WAS NOT ABLE TO CONVINCE THE PATIENT. WILL CONTINUE TO MONITOR AND REATTEMPT LATER. AWARE.
--- NOTE | 2018-04-23 19:30 | NUR ---
MS RN CLOSING NOTE PATIENT IN BED, ALERT ORIENTED X1-2, ON ROOM AIR. TOLERATING WELL. RESPIRATIONS EVEN AND UNLABORED, IN NO APPARENT DISTRESS OR DISCOMFORT AT THIS TIME. PATIENT IS [place] SPEAKING, ABLE TO COMMUNICATE IN [place] BUT SPEECH IS GARBLED AND LITTLE UNCLEAR. DENIES PAIN AT THIS TIME. PATIENT IS INCONTINENT, GARCIA CATHETER IN PLACE DRAINING CLEAR YELLOW URINE. PATIENT IS WITH MULTIPLE PRESSURE ULCERS, DRESSINGS CHANGED AND ARE INTACT. RIGHT HAND IVC SL, PATENT AND INTACT. PATIENT KEPT CLEAN AND COMFORTABLE SAFETY MEASURES IN PLACE, BED IN LOW LOCKED POSITION, SIDE RIALS UP X3, CALL LIGHT WITHIN EASY REACH. WILL ENDORSE TO PM NURSE FOR CHEN.
[2018-04-23 20:00] VITALS: BP 106/67
--- NOTE | 2018-04-23 20:00 | NUR ---
MS RENÉ INITIAL NOTES SEEN PT IN BED AFTER GOT REPORT FROM AM NURSE. HE'S AWAKE ON SITTING POSITION WHILE WATCHING TV AT THIS TIME, GREENLAND[place] SPEAKING, DENIES ANY PAIN OR ANY DISCOMFORT. HEPLOCK PATENT AND INTACT ON HIS RIGHT HAND. DRESSING ON BOTH HIP DRY AND INTACT . ON [employer]CI MATTRESS AND REPOSITION HIM FOR COMFORT. KEPT HIM WARM AND COMFORTABLE AT ALL TIMES. NO SIGNS OF ANY ACUTE DISTRESS NOTED. BED IN LOW AND LOCK IN POSITION WITH SIDE RAILS X3 UP AND BED ALARM SET FOR SAFETY. WILL CONTINUE MONITORING.
[2018-04-23] MEDS: LEVOFLOXACIN (500MG) 500 MG TABLET PO SCH (20:44)
[2018-04-24 08:00] VITALS: BP 130/85
--- NOTE | 2018-04-24 08:00 | NUR ---
m/s raw mill operator: initial assessment received pt in bed awake, a/ox1-2 with confusion and disorientation to time, place, and situation. reality orientation provided prn. pt for d'c planning to snf. no s/s of discomfort. hob elevated. will continue to monitor.
[2018-04-24 08:11] LABS: BASOPHILS % (AUTO) 0.3 % (0.0-2.0); EOSINOPHILS % (AUTO) 2.3 % (0.0-6.0); HEMATOCRIT 29 % (39-51); HEMOGLOBIN 9.4 g/dL (13.5-17.5); LYMPHOCYTES # (AUTO) 2.1 /CMM (0.8-4.8); LYMPHOCYTES % (AUTO) 18.3 % (20.0-44.0); MEAN CORPUSCULAR HEMOGLOBIN 30 PG (26.0-33.0); MEAN CORPUSCULAR HGB CONC 33 g/dl (31.0-36.0); MEAN CORPUSCULAR VOLUME 92 fL (80-96); MONOCYTES # (AUTO) 0.6 /CMM (0.1-1.30); MONOCYTES % (AUTO) 4.9 % (2.0-12.0); NEUTROPHILS # (AUTO) 8.7 /CMM (1.8-8.9); NEUTROPHILS % (AUTO) 74.2 % (43.0-81.0); PLATELET COUNT (AUTO) 486 /CMM (150-450); RDW COEFFICIENT OF VARIATION 16.4 (11.5-15.0); WHITE BLOOD COUNT (AUTO) 11.7 K/uL (4.3-11.0)
[2018-04-24 08:19] LABS: CALCIUM, SERUM 9.1 mg/dL (8.5-10.1); CARBON DIOXIDE 28 mmol/L (21-32); CHLORIDE 103 mmol/L (98-107); CREATININE 0.7 mg/dL (0.6-1.3); GLUCOSE 110 mg/dL (74-106); POTASSIUM 4.3 mmol/L (3.5-5.1); SODIUM SERUM 139 mmol/L (136-145); UREA NITROGEN, BLOOD 14 mg/dL (7-18)
[2018-04-24] MEDS: GABAPENTIN 300 MG CAPSULE PO SCH ×3 (08:36→16:21)
[2018-04-24] MEDS: ASPIRIN EC 81 MG TABLET.DR PO SCH (08:36)
[2018-04-24] MEDS: FLUOXETINE HCL 20 MG CAPSULE PO SCH (08:36)
[2018-04-24] MEDS: PANTOPRAZOLE 40 MG TABLET.DR PO SCH (08:36)
[2018-04-24] MEDS: LACTOBACILLUS RHAMNOSUS GG 1 EACH CAP.SPRINK PO SCH ×2 (08:36→16:21)
[2018-04-24] MEDS: FERROUS SULFATE (325 MG) 325 MG/TAB TABLET PO SCH ×2 (08:36→16:21)
[2018-04-24] MEDS: CLOPIDOGREL BISULFATE 75 MG TABLET PO SCH (08:36)
[2018-04-24] MEDS: ASCORBIC ACID 500 MG TABLET PO SCH ×2 (08:36→16:21)
[2018-04-24] MEDS: ENSURE ENLIVE 237 ML LIQUID (VANILLA) PO SCH ×2 (08:37→16:21)
[2018-04-24 08:38] VITALS: BP 130/85
[2018-04-24] MEDS: ENOXAPARIN SODIUM 40 MG/0.4 ML DISP.SYRIN SQ SCH (08:43)
--- NOTE | 2018-04-24 10:00 | NUR ---
m/s residential builder: notes both hips, sacral, right heel, and left lat ankle wound tx done as ordered, william. well. voiced no discomfort. reality orientation provided prn. will continue to monitor.
[2018-04-24] MEDS: DAKINS HALF STRENGTH (0.25%) 480 ML BOTTLE TOP SCH (10:07)
--- NOTE | 2018-04-24 12:30 | NUR ---
m/s temperature control inspector: md visit seen and examined by dr. rodríguez with order to d'c back to snf. order acknowledged. ani (daughter) notified and made aware and ask if pt is getting any pain med at snf and also wants to postpone the discharge until tomorrow and wants to look for another snf. dr. rodríguez made aware re: daughter concerns. cn and case management aware and will f/u.
--- NOTE | 2018-04-24 13:30 | NUR ---
m/s training director: notes alondra (case management) called and informed me that she spoke to daughter and agreed to go back to [facility] at 1700. meredith () at bedside and made aware, stated, "yes, my daughter told me." pt made aware.
--- NOTE | 2018-04-24 14:00 | NUR ---
m/s electric razor assembler: notes placed a call to [facility], but rn supervisor gluing not available for report at this time. remains at bedside.
[2018-04-24] MEDS ORDERED: HYDROGEL DRESSING 90 GM TUBE TP SCH (15:00)
--- NOTE | 2018-04-24 15:00 | NUR ---
m/s aqua ammonia operator: notes pt unable to sign d'c papers. 2 licensed staff signed all d'c papers and copy will be given to ambulance and snf.
--- NOTE | 2018-04-24 15:10 | NUR ---
m/s director banking: notes drsg to both hips, right heel, and sacral clean and dry. wound instructions change as ordered. report given to [facility], spoke to admitting nurse (deena) for continuity of care.
[2018-04-24 16:00] VITALS: BP 121/65
[2018-04-24] MEDS: FLUCONAZOLE (100 MG) 100 MG TABLET PO SCH (16:21)
[2018-04-24 16:41] VITALS: BP 121/65
--- NOTE | 2018-04-24 16:55 | NUR ---
m/s dispensing optician: notes ambulance here and report given to one of the crew. h/l removed with tip intact with no swelling, no redness, and no bleeding noted.
--- NOTE | 2018-04-24 17:05 | NUR ---
m/s egg pasteurizer: discharged discharged to snf via ambulance in stable condition with all d'c papers.
== END 2018-04-24 17:00 | DRG 570 ==
LOC: EDSEX 10:10 → ER 10:10 → TELE 13:11 → MED 04-16 09:00
PROVIDERS: ADMIT Internal Medicine Nephrology; ATTEND Internal Medicine Nephrology
PROC: 0KBP0ZZ Excision of Left Hip Muscle, Open Approach (ICD-10-PCS; principal; 2018-04-16)
PROC: 0KBN0ZZ Excision of Right Hip Muscle, Open Approach (ICD-10-PCS; 2018-04-16)
PROC: 0KBS0ZZ Excision of Right Lower Leg Muscle, Open Approach (ICD-10-PCS; 2018-04-16)
PROC: 0KBP0ZZ Excision of Left Hip Muscle, Open Approach (ICD-10-PCS; 2018-04-23)
PROC: 0KBN0ZZ Excision of Right Hip Muscle, Open Approach (ICD-10-PCS; 2018-04-23)
PROC: 0JB70ZZ Excision of Back Subcutaneous Tissue and Fascia, Open Approach (ICD-10-PCS; 2018-04-23)
DX: L89.154 Pressure ulcer of sacral region, stage 4 (principal); G92 Toxic encephalopathy; R53.2 Functional quadriplegia; E87.2 Acidosis; E46 Unspecified protein-calorie malnutrition; M86.9 Osteomyelitis, unspecified; L89.614 Pressure ulcer of right heel, stage 4; L89.224 Pressure ulcer of left hip, stage 4; L89.214 Pressure ulcer of right hip, stage 4; Z74.01 Bed confinement status; E78.5 Hyperlipidemia, unspecified; D50.9 Iron deficiency anemia, unspecified; Z86.73 Personal history of transient ischemic attack (TIA), and cerebral infarction without residual deficits; Z99.81 Dependence on supplemental oxygen; Z86.718 Personal history of other venous thrombosis and embolism; Z82.49 Family history of ischemic heart disease and other diseases of the circulatory system; Z79.82 Long term (current) use of aspirin; K21.9 Gastro-esophageal reflux disease without esophagitis; J44.9 Chronic obstructive pulmonary disease, unspecified; I10 Essential (primary) hypertension; F03.90 Unspecified dementia, unspecified severity, without behavioral disturbance, psychotic disturbance, mood disturbance, and anxiety; I25.10 Atherosclerotic heart disease of native coronary artery without angina pectoris; F32.9 Major depressive disorder, single episode, unspecified; Z91.018 Allergy to other foods; Z79.899 Other long term (current) drug therapy; M24.562 Contracture, left knee; M24.561 Contracture, right knee; L89.520 Pressure ulcer of left ankle, unstageable; L98.9 Disorder of the skin and subcutaneous tissue, unspecified; I95.9 Hypotension, unspecified
CPT/HCPCS: 36415; 71045-TC; 80048-TC; 80061-TC; 80076-TC; 82728-TC; 82962-TC; 83540-TC; 83605-TC; 83735-TC; 84100-TC; 84134-TC; 84439-TC; 84443-TC; 84484-TC; 85025-TC; 85730-TC; 87040-TC; 87070-TC; 87081-TC; 87186-TC; 92526; 92611-TC; 93307-TC; A4606; A6248; A6253; A6402; A6403; J1650; J2270; J2543; J3260; J3490; J7030; J7050; J7060; Z7610

== ENCOUNTER 2018-12-23 22:02 | Inpatient (IN) | payer MEDICARE, OTHER ==
[~2018-12-23] VITALS: Ht 170.2 cm; Wt 41.7 kg
[~2018-12-23 22:02] MED LIST: ACET325C5 PO; AMLO5TAB4 PO; ASCO500T9 PO; ASPI-1152 PO; ATOR20TA PO; BISA10SU8 RC; CLOP75TA15 PO; COLL30OI TP; ENOX40DI SQ; FLUO20CA36 PO; GABA300C PO; HYDR-4384 PO; IPRA0.2S9 IH; LEVA1.2528 IH; MAGN400O6 PO; METO25TA20 PO; MULT1TAB73 PO; NA P133E RC; ONDA4SOL2 PO; PANT40TA2 PO; ZINC220T PO
--- NOTE | 2018-12-23 22:10 | NUR ---
PT [id number] FROM [facility], PER STAFF PT "MORE LETHARGIC THAN NORMAL SINCE AFTERNOON". PER EMS, SPO2 ON RA 89%, PLACED ON NR 15L, SPO2 96%. FEBRILE. PT NONVERBAL BUT ABLE TO FOLLOW SIMPLE COMMANDS. MULTIPLE COVERED WOUNDS NOTED. PT ON MONITOR IN BED 8. WILL CONTINUE TO MONITOR.
--- NOTE | 2018-12-23 22:25 | NUR ---
TECH AT BEDSIDE FOR EKG
--- NOTE | 2018-12-23 22:28 | NUR ---
PHLEB AT BEDSIDE FOR LABDRAW
[2018-12-23] MEDS ORDERED: IV NS 0.9% 1,000 ML BAG IV ONE (22:30)
--- NOTE | 2018-12-23 22:37 | NUR ---
RADIOLOGY AT BEDSIDE FOR XRAY
[2018-12-23 22:56] LABS: ABG BASE EXCESS 0.8 mmol/L; ABG OXYGEN SATURATION 93.8 % (92.0-98.5); ABG PCO2 30.7 mmHg (35.0-45.0); ABG PO2 70.9 mmHg (75.0-100.0); AaDO2 611.4 mmHg; COHb 0.3 % (0.5-1.5); MetHb 0.6 % (0.0-1.5); SITE, ABG Left Brachial; VENT MODE, BG NON REBREATHER
--- NOTE | 2018-12-23 23:05 | NUR ---
FAMILY AT BEDSIDE
--- NOTE | 2018-12-23 23:13 | NUR ---
UNABLE TO REPLACE GARCIA CATHETER. AWARE.
[2018-12-23] MEDS ORDERED: ACETAMINOPHEN 650 MG/SUPP.RECT RC ONE (23:30)
[2018-12-23] MEDS ORDERED: VANCOMYCIN 1 GM in IV D5W 250 ML IV ONE (23:30)
[2018-12-23] MEDS ORDERED: PIPERACILLIN /TAZOBACTAM 3.375 G in IV D5W 50 ML IV ONE (23:30)
[2018-12-23] MEDS ORDERED: VANCOMYCIN 1 GM VIAL ONE (23:38)
[2018-12-23] MEDS ORDERED: PIPERACILLIN /TAZOBACTAM 3.375 G VIAL IV ONE (23:39)
[2018-12-23 23:51] LABS: BASOPHILS % (AUTO) 0.1 % (0.0-2.0); HEMATOCRIT 35 % (39-51); HEMOGLOBIN 10.6 g/dL (13.5-17.5); LYMPHOCYTES # (AUTO) 1.2 /CMM (0.8-4.8); LYMPHOCYTES % (AUTO) 3.3 % (20.0-44.0); MEAN CORPUSCULAR HGB CONC 31 g/dl (31.0-36.0); MEAN CORPUSCULAR VOLUME 81 fL (80-96); MONOCYTES # (AUTO) 1.2 /CMM (0.1-1.30); MONOCYTES % (AUTO) 3.2 % (2.0-12.0); NEUTROPHILS # (AUTO) 33.2 /CMM (1.8-8.9); NEUTROPHILS % (AUTO) 93.4 % (43.0-81.0); PLATELET COUNT (AUTO) 763 /CMM (150-450); RED BLOOD CELL COUNT(AUTO) 4.25 MIL/uL (4.5-6.0)
[2018-12-23 23:53] LABS: WHITE BLOOD COUNT (AUTO) 35.6 K/uL (4.3-11.0)
[2018-12-23 23:55] LABS: ALANINE AMINOTRANSFERASE 14 U/L (12-78); ALBUMIN 1.8 g/dL (3.4-5.0); ALKALINE PHOSPHATASE 103 U/L (46-116); ASPARTATE AMINOTRANSFERASE 30 U/L (15-37); BILIRUBIN,DIRECT 0.1 mg/dL (0.0-0.2); BILIRUBIN,TOTAL 0.3 mg/dL (0.2-1.0); CALCIUM, SERUM 8.7 mg/dL (8.5-10.1); CARBON DIOXIDE 22 mmol/L (21-32); CHLORIDE 116 mmol/L (98-107); GLUCOSE 131 mg/dL (74-106); POTASSIUM 3.8 mmol/L (3.5-5.1); SODIUM SERUM 154 mmol/L (136-145); TOTAL PROTEIN, SERUM 7.7 g/dL (6.4-8.2); UREA NITROGEN, BLOOD 30 mg/dL (7-18)
[2018-12-24] VITALS (32 sets, daily range): BP systolic 89–147; BP diastolic 48–95
[2018-12-24] MEDS ORDERED: IV NS 0.9% 1,000 ML BAG IV ONE (00:30)
[2018-12-24 00:53] LABS: LYMPHOCYTES % (MANUAL) 4 % (16-48); NEUTROPHILS % (MANUAL) 94 (42-76)
[2018-12-24 00:54] LABS: MONOCYTES % (MANUAL) 2 % (0-11.0)
--- NOTE | 2018-12-24 01:18 | NUR ---
REPORT GIVEN TO ALIDA MORSE FOR CHEN
--- NOTE | 2018-12-24 03:00 | NUR ---
BANKING SPECIALIST - NOTES ADMISSION - PT RECEIVED FROM ER NONVERBAL, ON NONREBREATHER, IV IN RIGHT HAND 20G. PT OPENS EYES, PT IS CONTRACTED BUE AND BLE, PT HAS MULTIPLE WOUNDS, PICTURES TAKEN, WOUND CONSULT ORDERED, WOUND DRESSINGS CHANGED. PT HAS F/C WITH MINIMAL URINE OUTPUT AT THIS TIME. WILL CONTINUE TO MONITOR
[2018-12-24] MEDS ORDERED: MIRT15TA PO (03:13)
[2018-12-24] MEDS ORDERED: MEGE400O4 PO (03:13)
[2018-12-24] MEDS: IV 1/2NS 1000 ML 1,000 ML IV PRN ×3 (03:17→22:02)
[2018-12-24] MEDS ORDERED: IV NS 0.9% 500 ML IV ONE (03:30)
[2018-12-24] MEDS ORDERED: PIPERACILLIN /TAZOBACTAM 3.375 G in IV D5W 50 ML IV SCH (05:00)
--- NOTE | 2018-12-24 05:20 | NUR ---
DR BURNS NOTIFIED OF LACTIC ACID LEVEL, I ALSO RECEIVED ORDER FOR NORCO 5/[address] BURNS ORDERED 500 ML NS IV BOLUS
--- NOTE | 2018-12-24 05:30 | NUR ---
PT IS ASLEEP, NO SIGNS OR SYMPTOMS OF PAIN AT THIS TIME, SO I WILL NOT GIVE NORCO BECAUSE PT IS SEPTIC AND COULD LOWER HIS BLOOD PRESSURE
[2018-12-24] MEDS ORDERED: PIPERACILLIN /TAZOBACTAM 3.375 G VIAL IV ONE (05:53)
[2018-12-24] MEDS ORDERED: FEE PK DOSING 1 MIN EA MC ONE (07:37)
[2018-12-24] MEDS ORDERED: LORA0.5T PO (08:13)
[2018-12-24] MEDS ORDERED: ZOLP10TA6 PO (08:13)
[2018-12-24] MEDS ORDERED: AMIN30LI2 PO (08:13)
[2018-12-24] MEDS ORDERED: LOSA50TA39 PO (08:13)
[2018-12-24] MEDS ORDERED: TAMS-12 PO (08:13)
[2018-12-24] MEDS ORDERED: MULT-447 PO (08:13)
[2018-12-24] MEDS ORDERED: HYDR-4354 PO ×2 (08:13)
[2018-12-24] MEDS ORDERED: ACET-2605 PO (08:13)
--- NOTE | 2018-12-24 08:15 | NUR ---
ICU/RN: Dr Davis at bedside, updated on pt status. Off NRB and tolerating O2 3L/min via NC well, afebrile. Urine culture collected and sent to lab. Pending swallow eval.
[2018-12-24] MEDS ORDERED: MISCELLANEOUS MED 1 EA EA PO PRN (08:30)
[2018-12-24] MEDS ORDERED: MAGNESIUM HYDROXIDE 30 ML UDC PO PRN (08:30)
[2018-12-24] MEDS ORDERED: NA PHOS,M-B/NA PHOS,DI-BA 1 EA ENEMA RC PRN (08:30)
[2018-12-24] MEDS ORDERED: BISACODYL SUPP (10 MG) 10 MG/SUPP.RECT SUPP.RECT RC PRN (08:30)
[2018-12-24] MEDS: CLOPIDOGREL BISULFATE 75 MG TABLET PO SCH ×2 (08:44→09:00)
[2018-12-24] MEDS: ASPIRIN EC 81 MG TABLET.DR PO SCH ×2 (08:44→09:00)
[2018-12-24] MEDS: ASCORBIC ACID 500 MG TABLET PO SCH ×2 (08:44→09:00)
[2018-12-24] MEDS: GABAPENTIN 300 MG CAPSULE PO SCH ×3 (08:44→16:32)
--- NOTE | 2018-12-24 08:45 | NUR ---
ICU/RN: Pt's daughter, Katelin called, educated and updated on pt status.
[2018-12-24] MEDS: ZINC SULFATE 220 MG CAPSULE PO SCH ×2 (08:47→09:00)
[2018-12-24] MEDS: ENOXAPARIN SODIUM 40 MG/0.4 ML DISP.SYRIN SQ SCH (08:47)
[2018-12-24] MEDS ORDERED: Z GUARD REMEDY 2 OZ OINT TP PRN (12:00)
[2018-12-24 13:19] LABS: APPEARANCE,URINE CLOUDY (CLEAR); BILIRUBIN,URINE NEGATIVE (NEGATIVE); BLOOD, URINE 3+ Ery/uL (NEGATIVE); COLOR,URINE YELLOW (YELLOW); KETONES,URINE NEGATIVE (NEGATIVE); LEUKOCYTE ESTERASE ,URINE 1+ (NEGATIVE); NITRITE, URINE POSITIVE (NEGATIVE); PH,URINE 5.5 (5.0-8.0); PROTEIN,URINE 1+ mg/dl (NEGATIVE); UGLUCOSE NEGATIVE (NEGATIVE); UROBILINOGEN,URINE 0.2 EU/dL (0.2)
[2018-12-24] MEDS: VANCOMYCIN 0.75 GM in IV D5W 250 ML IV SCH (13:22)
[2018-12-24 13:27] LABS: WBC,URINE 21-50 /HPF (0-3)
[2018-12-24 13:28] LABS: BACTERIA,URINE Few /HPF (None Seen); SQUAMOUS EPITHELIAL CELL,UR Few /HPF (None Seen); URINE AMORPHOUS URATE Few /HPF (None Seen)
[2018-12-24] MEDS: Z GUARD REMEDY 2 OZ OINT TP SCH (13:30)
[2018-12-24] MEDS: PIPERACILLIN /TAZOBACTAM 3.375 G in IV D5W 50 ML IV SCH ×2 (13:50→17:02)
--- NOTE | 2018-12-24 15:30 | NUR ---
ICU/RN: Bed bath, wound care rendered as ordered. Tolerated well. Per Dr Florentino ho for pt to use heel protectors from facility.
[2018-12-24] MEDS: DAKINS QUARTER STRENGTH (0.125%) 480 ML BOTTLE TOP SCH (15:35)
[2018-12-24] MEDS: NYSTATIN/TRIAMCIN CREAM 15 GM TUBE TP SCH (18:30)
--- NOTE | 2018-12-24 19:02 | NUR ---
ICU/RN: Pt in stable condition, no distress noted, on O2 2L/min via NC. IVF infusing well through DASIA ML. FC draining well to gravity. Will cont to monitor pt.
--- NOTE | 2018-12-24 19:51 | NUR ---
FIRE HYDRANT MECHANIC. INITIAL ASSESSMENT. RECEIVED THE PT REST ON THE BED. AWAKE, ALERT. DOES NOT FOLLOW COMMANDS. TEDDY LOWER EXTREMITY CONTRACTED. WINDOW DISPLAY DESIGNER SHOWING NSR. OXYGEN 2L VIA NASAL CANNULA.SAT 95%. NO ACUTE DISTRESS NOTED.IV RT UPPER ARM MID LINE IVF 1/2NS 100ML/H. HOB ELEVATED. WILL CONTINUE TO MONITOR VITALS.
[2018-12-24] MEDS: MIRTAZAPINE 15 MG TABLET PO SCH (22:00)
[2018-12-24] MEDS: TAMSULOSIN 0.4 MG CAP.SR.24H PO SCH (22:00)
--- NOTE | 2018-12-24 22:04 | NUR ---
BOX SORTER. TAB FLOMAX AND REMERON NOT GIVEN. TODAY PT SWALLOW EVALUATION FAILED. PT IS NPO.
[2018-12-25] VITALS (26 sets, daily range): BP systolic 87–130; BP diastolic 60–84
[2018-12-25] MEDS: VANCOMYCIN 0.75 GM in IV D5W 250 ML IV SCH ×3 (01:01→12:00)
[2018-12-25] MEDS: PIPERACILLIN /TAZOBACTAM 3.375 G in IV D5W 50 ML IV SCH ×5 (01:01→23:50)
--- NOTE | 2018-12-25 01:52 | NUR ---
apiculturist. bed ashley given linen changed. remaining same oxygen tolerated well. sat 97%. no acute distress noted. wound dressing done. fc patent. urine draining. hob elevated. pt is npo. iv rt upper arm mid line ivf 1/2ns 100ml/h. temperature 99. will continue to monitor vitals. report given to ne. for continue care,
--- NOTE | 2018-12-25 02:00 | NUR ---
TEMPLATE CHECKER NOTE RECEIVED REPORT FROM ANNELISE IRWIN FOR CONTINUITY OF CARE.
[2018-12-25 05:06] LABS: ALANINE AMINOTRANSFERASE 11 U/L (12-78); ALKALINE PHOSPHATASE 98 U/L (46-116); ASPARTATE AMINOTRANSFERASE 20 U/L (15-37); BILIRUBIN,TOTAL 0.2 mg/dL (0.2-1.0); CALCIUM, SERUM 7.6 mg/dL (8.5-10.1); CARBON DIOXIDE 22 mmol/L (21-32); CHLORIDE 111 mmol/L (98-107); CREATININE 0.8 mg/dL (0.6-1.3); GLUCOSE 94 mg/dL (74-106); SODIUM SERUM 142 mmol/L (136-145); TOTAL PROTEIN, SERUM 5.6 g/dL (6.4-8.2); UREA NITROGEN, BLOOD 15 mg/dL (7-18)
[2018-12-25 05:16] LABS: ALBUMIN 1.2 g/dL (3.4-5.0); MAGNESIUM 1.2 mg/dL (1.8-2.4); POTASSIUM 2.4 mmol/L (3.5-5.1)
[2018-12-25 05:30] LABS: PREALBUMIN 5.5 MG/DL (18.0-35.7)
[2018-12-25] MEDS: NYSTATIN/TRIAMCIN CREAM 15 GM TUBE TP SCH ×2 (05:31→17:35)
[2018-12-25 05:49] LABS: BASOPHILS % (AUTO) 0.3 % (0.0-2.0); HEMATOCRIT 29 % (39-51); HEMOGLOBIN 8.7 g/dL (13.5-17.5); LYMPHOCYTES # (AUTO) 1.3 /CMM (0.8-4.8); LYMPHOCYTES % (AUTO) 10.8 % (20.0-44.0); MEAN CORPUSCULAR HGB CONC 30 g/dl (31.0-36.0); MEAN CORPUSCULAR VOLUME 84 fL (80-96); MONOCYTES # (AUTO) 0.5 /CMM (0.1-1.30); MONOCYTES % (AUTO) 4.2 % (2.0-12.0); NEUTROPHILS % (AUTO) 81.7 % (43.0-81.0); PLATELET COUNT (AUTO) 435 /CMM (150-450); RED BLOOD CELL COUNT(AUTO) 3.43 MIL/uL (4.5-6.0); WHITE BLOOD COUNT (AUTO) 12.3 K/uL (4.3-11.0)
--- NOTE | 2018-12-25 06:15 | NUR ---
TAX ADVISOR NOTE CRITICAL LABS RECEIVED FOR K 2.4 AND ALBUMIN 1.2. NOTIFIED HISTOLOGY SUPERVISOR DR. SNIDER WITH ORDERS TO GIVE POTASSIUM 40 MEQ IVPB X 4 HOURS AND RECHECK POTASSIUM LEVEL AFTER LAST IVPB GIVEN. ORDERS NOTED AND CARRIED OUT. WILL MONITOR.
[2018-12-25] MEDS: POTASSIUM CL. PREMIX PERIPHER. 50 ML IV SCH ×7 (06:33→12:31)
--- NOTE | 2018-12-25 07:01 | NUR ---
CARDIAC TECHNOLOGIST NOTE PT REMAINED STABLE DURING SHIFT. NO ACUTE DISTRESS NOTED. ALL NEEDS ATTENDED TO PROMPTLY. HOB MAINTAINED ELEVATED AND ON ASPIRATION PRECAUTIONS. NPO. KEPT CLEAN AND DRY. REPOSITIONED Q2H. WILL ENDORSE TO NEXT SHIFT FOR CONTINUITY OF CARE.
--- NOTE | 2018-12-25 07:24 | NUR ---
WOUND CARE CONSULT WOUND CARE RECEIVED CONSULT FOR MULTIPLE WOUNDS. WOUND CARE WILL DEFER CONSULT AND ALL TREATMENT PLANS TO PLASTIC SURGICAL TEAM WELL DPM DR LOGAN WHO ARE ALL CURRENTLY FOLLOWING THIS PATIENT. PATIENT WITH GIDEON AT 10, ALL PRESSURE ULCER PREVENTION MEASURES ARE NOTED TO BE IN PLACE AT THIS TIME. WILL SEE PRN.
[2018-12-25] MEDS: ENOXAPARIN SODIUM 40 MG/0.4 ML DISP.SYRIN SQ SCH (07:36)
[2018-12-25] MEDS: ASPIRIN EC 81 MG TABLET.DR PO SCH (07:57)
[2018-12-25] MEDS: ZINC SULFATE 220 MG CAPSULE PO SCH (07:58)
[2018-12-25] MEDS: CLOPIDOGREL BISULFATE 75 MG TABLET PO SCH (07:58)
[2018-12-25] MEDS: ASCORBIC ACID 500 MG TABLET PO SCH (07:58)
[2018-12-25] MEDS: GABAPENTIN 300 MG CAPSULE PO SCH ×2 (07:58→16:03)
--- NOTE | 2018-12-25 08:00 | NUR ---
ICU/RN: Dr Davis rounds; updated on pt status, abn labs, informed that pt failed swallow eval, required deep suctioning overnight for airway clearance. New orders noted and carried out.
[2018-12-25] MEDS: Z GUARD REMEDY 2 OZ OINT TP SCH (08:20)
[2018-12-25] MEDS: DAKINS QUARTER STRENGTH (0.125%) 480 ML BOTTLE TOP SCH (08:21)
--- NOTE | 2018-12-25 09:00 | NUR ---
ICU/RN: Pt failed swallow eval; speech therapy recommending video swallow.
[2018-12-25] MEDS: IV 1/2NS 1000 ML 1,000 ML IV PRN ×2 (09:06→23:50)
[2018-12-25] MEDS: Magnesium 1GM/D5W 100ML PREMIX 100 ML IV SCH ×4 (10:31→13:29)
[2018-12-25] MEDS ORDERED: POTASSIUM PHOSPHATE MM 7.5 MMOL in IV D5W 100 ML IV SCH (13:00)
[2018-12-25] MEDS: ALBUTEROL HALF STRENGTH 1.25 MG/3 ML VIAL.NEB NEB SCH ×2 (13:46→19:53)
--- NOTE | 2018-12-25 15:15 | NUR ---
ICU/RN: Hygienic, oral and wound care rendered. Pt tolerated well. Pt able to communicate. High risk for aspiration, HOB maintained over 30 degrees at all time.
[2018-12-25 15:27] LABS: CALCIUM, SERUM 7.9 mg/dL (8.5-10.1); CARBON DIOXIDE 22 mmol/L (21-32); CHLORIDE 107 mmol/L (98-107); CREATININE 0.5 mg/dL (0.6-1.3); GLUCOSE 123 mg/dL (74-106); POTASSIUM 3.9 mmol/L (3.5-5.1); SODIUM SERUM 137 mmol/L (136-145); UREA NITROGEN, BLOOD 11 mg/dL (7-18)
--- NOTE | 2018-12-25 19:26 | NUR ---
agriculture professor. inity
--- NOTE | 2018-12-25 19:27 | NUR ---
TEST CLERK. INITIAL ASSESSMENT. RECEIVED THE PT REST ON THE BED. AWAKE, ALERT. DOES NOT FOLLOW COMMANDS. CAR RENTAL MANAGER SHOWING S TACH. OXYGEN 2L VIA NASAL CANNULA. SAT 98%. NO ACUTE DISTRESS NOTED. CIV RT UPPER ARM MID LINE. IVF 1/2 NS 100ML/H. FC PATENT. URINE DRAINING, HOB ELEVATED. NPO. MULTIPLE WOUND. WILL CONTINUE TO MONITOR VITALS.
[2018-12-25] MEDS: MIRTAZAPINE 15 MG TABLET PO SCH (22:00)
[2018-12-25] MEDS: TAMSULOSIN 0.4 MG CAP.SR.24H PO SCH (22:00)
[2018-12-26] VITALS (36 sets, daily range): BP systolic 102–137; BP diastolic 62–89
[2018-12-26] MEDS: VANCOMYCIN 500 MG in IV D5W 100 ML IV SCH ×3 (00:56→23:00)
[2018-12-26] MEDS: ALBUTEROL HALF STRENGTH 1.25 MG/3 ML VIAL.NEB NEB SCH ×4 (00:58→20:25)
--- NOTE | 2018-12-26 04:46 | NUR ---
CNC APPLICATIONS ENGINEER. AM CARE, ORAL CARE, BED FOX GIVEN. LINEN CHANGED, REMAINING SAME OXYGEN TOLERATED WELL, SAT 98%, NO ACUTE DISTRESS NOTED. CHAIN DYER SHOWING NSR. IV RT UPPER ARM MID LINE, IVF 1/2NS 100ML/H, FC PATENT, URINE DRAINING, HOB ELEVATED. TURN AND REPOSITION Q2H, WOUND CARE DONE. WILL CONTINUE TO MONITOR VITALS.
[2018-12-26] MEDS: NYSTATIN/TRIAMCIN CREAM 15 GM TUBE TP SCH ×2 (05:39→17:12)
[2018-12-26] MEDS: PIPERACILLIN /TAZOBACTAM 3.375 G in IV D5W 50 ML IV SCH ×4 (05:39→23:28)
[2018-12-26 06:01] LABS: BASOPHILS % (AUTO) 0.3 % (0.0-2.0); EOSINOPHILS % (AUTO) 5.2 % (0.0-6.0); HEMATOCRIT 30 % (39-51); HEMOGLOBIN 9.6 g/dL (13.5-17.5); LYMPHOCYTES # (AUTO) 1.4 /CMM (0.8-4.8); LYMPHOCYTES % (AUTO) 15.4 % (20.0-44.0); MEAN CORPUSCULAR HGB CONC 32 g/dl (31.0-36.0); MEAN CORPUSCULAR VOLUME 80 fL (80-96); MONOCYTES # (AUTO) 0.5 /CMM (0.1-1.30); MONOCYTES % (AUTO) 5.3 % (2.0-12.0); NEUTROPHILS # (AUTO) 6.6 /CMM (1.8-8.9); NEUTROPHILS % (AUTO) 73.8 % (43.0-81.0); PLATELET COUNT (AUTO) 468 /CMM (150-450); RED BLOOD CELL COUNT(AUTO) 3.76 MIL/uL (4.5-6.0); WHITE BLOOD COUNT (AUTO) 8.9 K/uL (4.3-11.0)
[2018-12-26 06:15] LABS: ALANINE AMINOTRANSFERASE 14 U/L (12-78); ALKALINE PHOSPHATASE 88 U/L (46-116); ASPARTATE AMINOTRANSFERASE 21 U/L (15-37); BILIRUBIN,TOTAL 0.2 mg/dL (0.2-1.0); CALCIUM, SERUM 8.2 mg/dL (8.5-10.1); CARBON DIOXIDE 24 mmol/L (21-32); CHLORIDE 110 mmol/L (98-107); CREATININE 0.5 mg/dL (0.6-1.3); GLUCOSE 91 mg/dL (74-106); MAGNESIUM 2.1 mg/dL (1.8-2.4); PHOSPHORUS 2.2 mg/dL (2.5-4.9); POTASSIUM 3.6 mmol/L (3.5-5.1); SODIUM SERUM 143 mmol/L (136-145); TOTAL PROTEIN, SERUM 6.1 g/dL (6.4-8.2); UREA NITROGEN, BLOOD 8 mg/dL (7-18)
[2018-12-26 06:16] LABS: ALBUMIN 1.4 g/dL (3.4-5.0)
[2018-12-26] MEDS: GABAPENTIN 300 MG CAPSULE PO SCH ×2 (08:38→17:00)
[2018-12-26] MEDS: ASPIRIN EC 81 MG TABLET.DR PO SCH (08:38)
[2018-12-26] MEDS: ENOXAPARIN SODIUM 40 MG/0.4 ML DISP.SYRIN SQ SCH (08:38)
[2018-12-26] MEDS: ASCORBIC ACID 500 MG TABLET PO SCH (08:39)
[2018-12-26] MEDS: DAKINS QUARTER STRENGTH (0.125%) 480 ML BOTTLE TOP SCH (08:39)
[2018-12-26] MEDS: ZINC SULFATE 220 MG CAPSULE PO SCH (08:39)
[2018-12-26] MEDS: CLOPIDOGREL BISULFATE 75 MG TABLET PO SCH (08:39)
[2018-12-26] MEDS: Z GUARD REMEDY 2 OZ OINT TP SCH (08:40)
--- NOTE | 2018-12-26 09:00 | NUR ---
received pt from ventilation worker, alert, follow simple commands at times, SR, on 2L 02 sat well, lungs partially congested, no edema, NPO, f/c good output, v/s stable, no pain, pt turned and repositioned.
[2018-12-26] MEDS ORDERED: K PHOS NEUTRAL 250 MG TABLET PO ONE (10:30)
[2018-12-26] MEDS: IV 1/2NS 1000 ML 1,000 ML IV PRN ×2 (11:41→20:46)
--- NOTE | 2018-12-26 17:05 | NUR ---
pt is resting in the bed, alert, does not follows commands, SR, RA, sat well, f/c good output, NPO, one BM, v/s stable, no pain, pt cleaned, changed and repositioned q2hrs.
--- NOTE | 2018-12-26 19:36 | NUR ---
INTERVIEWING CLERK. INITIAL ASSESSMENT. RECEIVED THE PT REST ON THE BED. AWAKE, ALERT, PT ON ROOM AIR. SAT 95%, NO ACUTE DISTRESS NOTED. LITIGATION ASSOCIATE SHOWING NSR, IV RT UPPER AR, ,ID LINE. IVF 1/2NS 100ML/H, HOB ELEVATED. NPO. FC PATENT. WILL CONTINUE TO MONITOR VITALS.
--- NOTE | 2018-12-26 20:21 | NUR ---
SENIOR FUND ACCOUNTANT. REPORT GIVEN TO RICKI RNLISANDRA. ROOM 116, BED 2. PT IS STABLE.
--- NOTE | 2018-12-26 20:56 | NUR ---
TD RN NOTES RECEIVED PT ON BED VIA STRETCHER, ON ROOM AIR NO RESPIRATORY DISTRESS NOTED. IV ACCESS DASIA MIDLINE AND RH G18 WITH 1/2 NS @ 100CC/HR. ON TELE MONITOR HR 100. HEAD OF BED ELEVATED. SIDE RAILS UP. CALL LIGHT WITHIN REACH. BED ALARM ON. WILL CONTINUE TO MONITOR PT CLOSELY.
[2018-12-26] MEDS: TAMSULOSIN 0.4 MG CAP.SR.24H PO SCH (21:00)
[2018-12-26] MEDS: MIRTAZAPINE 15 MG TABLET PO SCH (21:01)
[2018-12-27] VITALS: BP 125/81
[2018-12-27] MEDS: ALBUTEROL HALF STRENGTH 1.25 MG/3 ML VIAL.NEB NEB SCH ×4 (01:50→20:36)
[2018-12-27 04:00] VITALS: BP 134/84
[2018-12-27] MEDS: PIPERACILLIN /TAZOBACTAM 3.375 G in IV D5W 50 ML IV SCH ×4 (05:28→23:22)
[2018-12-27] MEDS: NYSTATIN/TRIAMCIN CREAM 15 GM TUBE TP SCH ×2 (05:29→18:06)
--- NOTE | 2018-12-27 07:21 | NUR ---
TD RN NOTES NO ACUTE CHANGES NOTED DURING THE SHIFT. PROVIDED COMFORT AND SAFETY. WILL ENDORSE TO THE AM NURSE FOR CONTINUITY OF CARE.
--- NOTE | 2018-12-27 07:30 | NUR ---
RN NOTE: RECEIVED PATIENT IN BED, AWAKE, NONVERBAL AND NOTED WITH PERIODS OF CONFUSION. RESPIRATION EVEN AND UNLABORED SATURATING 95% ON ROOM AIR. HOB ELEVATED AT 35 DEGREE. ON PSYCHIATRIC AIDE INSTRUCTOR SR HR= 93. (R) UA MIDLINE NOTED WITH 2 LUMENS INTACT AND PATENT INFUSING 1/2 NS @100ML/HR. AFEBRILE. SKIN WARM TO TOUCH. KEPT NPO STATUS PER MD ORDER AND AWAITING FOR THE SWALLOW EVALUATION FOR TOMORROW. BED ALARMED AND LOCKED AT ALL TIMES. BED ON LOWEST POSITION. CALL LIGHT WITHIN REACH. NEEDS ANTICIPATED.
[2018-12-27 08:00] VITALS: BP 142/77
[2018-12-27] MEDS: ASPIRIN EC 81 MG TABLET.DR PO SCH (08:33)
[2018-12-27] MEDS: CLOPIDOGREL BISULFATE 75 MG TABLET PO SCH (08:33)
[2018-12-27] MEDS: GABAPENTIN 300 MG CAPSULE PO SCH ×2 (08:33→16:11)
[2018-12-27] MEDS: ZINC SULFATE 220 MG CAPSULE PO SCH (08:33)
[2018-12-27] MEDS: ASCORBIC ACID 500 MG TABLET PO SCH (08:33)
[2018-12-27] MEDS: ENOXAPARIN SODIUM 40 MG/0.4 ML DISP.SYRIN SQ SCH (08:58)
[2018-12-27] MEDS: Z GUARD REMEDY 2 OZ OINT TP SCH (09:00)
[2018-12-27] MEDS: DAKINS QUARTER STRENGTH (0.125%) 480 ML BOTTLE TOP SCH (09:00)
[2018-12-27] MEDS: IV 1/2NS 1000 ML 1,000 ML IV PRN (09:36)
[2018-12-27 10:36] LABS: CALCIUM, SERUM 7.8 mg/dL (8.5-10.1); CARBON DIOXIDE 23 mmol/L (21-32); CHLORIDE 105 mmol/L (98-107); CREATININE 0.5 mg/dL (0.6-1.3); GLUCOSE 89 mg/dL (74-106); SODIUM SERUM 139 mmol/L (136-145); UREA NITROGEN, BLOOD 4 mg/dL (7-18)
[2018-12-27] MEDS: VANCOMYCIN 500 MG in IV D5W 100 ML IV SCH ×2 (11:05→23:22)
[2018-12-27 16:00] VITALS: BP 131/76
--- NOTE | 2018-12-27 16:02 | NUR ---
RN NOTE: PATIENT'S DAUGHTER, JOSE D WIGGINS WAS PRESENT AT THE BEDSIDE AND WAS REQUESTING FOR THE PATIENT TO RECEIVE A PAIN MEDICATION. EXPLAINED TO THE DAUGHTER THAT PATIENT WAS CURRENTLY NPO DUE TO HIS FAILED SWALLOW EVALUATION. PATIENT'S DAUGHTER STRONGLY INSISTED THAT THE PATIENT NEEDED TO RECEIVE PAIN MEDICATIONS. DAUGHTER JOSE D WAS INFORMED THAT DR. STACY WILL BE INFORM ABOUT HER REQUEST FOR PAIN MEDICATION. DAUGHTER JOSE D ALSO REQUESTED THAT SHE WANTED TO TAKE THE PATIENT HOME ONCE HE IS CLEAR TO GO HOME. FUR PLUCKER KT WAS MADE AWARE OF THIS REQUEST.
[2018-12-27] MEDS ORDERED: HYDROCODONE/APAP 5/325MG 1 EACH TABLET PO PRN (16:30)
--- NOTE | 2018-12-27 19:15 | NUR ---
RN NOTE: PAGED DR. STACY REGARDING THE POTASSIUM LEVEL 3.0 FOR REPLACEMENT. AWAITING FOR MD'S RESPONSE. BEDSIDE REPORT GIVEN TO PM SHIFT NURSE FOR CONTINUITY OF CARE AND ENDORSED TO FOLLOW-UP THE POTASSIUM LEVEL. PATIENT ASLEEP IN BED AND HOB ELEVATED AT 35 DEGREE AND PATIENT WAS POSITIONED COMFORTABLY.
--- NOTE | 2018-12-27 19:44 | NUR ---
RN MS OPENING NOTES RECEIVED PT IN BED, AWAKE, ALERT ORIENTEDX1, BREATHING EVEN AND UNLABORED ON ROOM AIR, SOB, COUGH OR CONGESTION NOTED. IN NO APPARENT PAIN OR DISCOMFORT AT THIS TIME, DASIA MIDLINE IN PLACE WITH 1/2NS @100ML/HR. F/C IN PLACE AND DRAINING, PT CLEAN AND COMFORTABLE, BED IN LOWEST LOCKED POSITION, WILL CONTINUE TO MONITOR FREQUENTLY.
[2018-12-27 20:00] VITALS: BP 144/67
[2018-12-27] MEDS: TAMSULOSIN 0.4 MG CAP.SR.24H PO SCH (21:19)
[2018-12-27] MEDS: MIRTAZAPINE 15 MG TABLET PO SCH (21:19)
--- NOTE | 2018-12-27 21:19 | NUR ---
NON ADMIN EVENING MEDICATIONS, SWALLOW EVAL TO BE DONE IN THE AM
[2018-12-28] VITALS (7 sets, daily range): BP systolic 116–164; BP diastolic 67–78
[2018-12-28] MEDS: ALBUTEROL HALF STRENGTH 1.25 MG/3 ML VIAL.NEB NEB SCH ×4 (01:40→20:02)
[2018-12-28] MEDS: PIPERACILLIN /TAZOBACTAM 3.375 G in IV D5W 50 ML IV SCH ×3 (05:20→17:45)
--- NOTE | 2018-12-28 06:12 | NUR ---
RN MS CLOSING NOTES PT REMAINS IN BED, AWAKE, ALERT ORIENTEDX1, BREATHING EVEN AND UNLABORED ON ROOM AIR, SOB, COUGH OR CONGESTION NOTED. IN NO APPARENT PAIN OR DISCOMFORT AT THIS TIME, DASIA MIDLINE IN PLACE WITH 1/2NS @100ML/HR. F/C IN PLACE AND DRAINING, 550ML OUT. PT CLEAN AND COMFORTABLE, WOUND DRESSING CHANGED. BED IN LOWEST LOCKED POSITION, WILL ENDORSE TO DAY NURSE FOR CHEN
[2018-12-28] MEDS: NYSTATIN/TRIAMCIN CREAM 15 GM TUBE TP SCH ×2 (06:36→17:45)
--- NOTE | 2018-12-28 07:28 | NUR ---
MS RN OPENING NOTE RECEIVED PT IN BED, ALERT AND ORIENTED X1. NO ACUTE DISTRESS NOTED AT THIS TIME. BREATHING IS EVEN AND UNLABORED ON ROOM AIR. RIGHT UPPER ARM MIDLINE IS INFUSING 1/2 NS @ 100ML/HR WITHOUT REDNESS OR SWELLING. ALL NEEDS ATTENDED TO. ASPIRATION PRECAUTIONS AN NPO STATUS MAINTAINED. BED IS LOCKED AND IN LOWEST POSITION, SIDE RAILS UP X3, BED ALARM ON, CALL LIGHT AND POSSESSIONS WITHIN REACH.
[2018-12-28 08:12] LABS: ALANINE AMINOTRANSFERASE 14 U/L (12-78); ALKALINE PHOSPHATASE 77 U/L (46-116); ASPARTATE AMINOTRANSFERASE 31 U/L (15-37); BILIRUBIN,TOTAL 0.3 mg/dL (0.2-1.0); CALCIUM, SERUM 8.1 mg/dL (8.5-10.1); CARBON DIOXIDE 25 mmol/L (21-32); CHLORIDE 107 mmol/L (98-107); CREATININE 0.4 mg/dL (0.6-1.3); GLUCOSE 77 mg/dL (74-106); MAGNESIUM 1.8 mg/dL (1.8-2.4); PHOSPHORUS 2.9 mg/dL (2.5-4.9); POTASSIUM 3.6 mmol/L (3.5-5.1); SODIUM SERUM 143 mmol/L (136-145); TOTAL PROTEIN, SERUM 6.2 g/dL (6.4-8.2); UREA NITROGEN, BLOOD 4 mg/dL (7-18)
[2018-12-28 08:22] LABS: ALBUMIN 1.4 g/dL (3.4-5.0)
[2018-12-28 08:30] LABS: BASOPHILS # (AUTO) 0.1 /CMM (0.0-0.2); BASOPHILS % (AUTO) 0.8 % (0.0-2.0); EOSINOPHILS % (AUTO) 2.8 % (0.0-6.0); HEMATOCRIT 31 % (39-51); HEMOGLOBIN 9.8 g/dL (13.5-17.5); LYMPHOCYTES # (AUTO) 1.6 /CMM (0.8-4.8); LYMPHOCYTES % (AUTO) 17.3 % (20.0-44.0); MEAN CORPUSCULAR HGB CONC 32 g/dl (31.0-36.0); MEAN CORPUSCULAR VOLUME 80 fL (80-96); MONOCYTES # (AUTO) 0.9 /CMM (0.1-1.30); MONOCYTES % (AUTO) 9.6 % (2.0-12.0); NEUTROPHILS # (AUTO) 6.5 /CMM (1.8-8.9); NEUTROPHILS % (AUTO) 69.5 % (43.0-81.0); PLATELET COUNT (AUTO) 405 /CMM (150-450); RED BLOOD CELL COUNT(AUTO) 3.83 MIL/uL (4.5-6.0); WHITE BLOOD COUNT (AUTO) 9.4 K/uL (4.3-11.0)
[2018-12-28] MEDS: CLOPIDOGREL BISULFATE 75 MG TABLET PO SCH (08:40)
[2018-12-28] MEDS: GABAPENTIN 300 MG CAPSULE PO SCH ×2 (08:40→17:00)
[2018-12-28] MEDS: DAKINS QUARTER STRENGTH (0.125%) 480 ML BOTTLE TOP SCH (08:40)
[2018-12-28] MEDS: ASCORBIC ACID 500 MG TABLET PO SCH (08:40)
[2018-12-28] MEDS: Z GUARD REMEDY 2 OZ OINT TP SCH (08:40)
[2018-12-28] MEDS: ZINC SULFATE 220 MG CAPSULE PO SCH (08:40)
[2018-12-28] MEDS: ASPIRIN EC 81 MG TABLET.DR PO SCH (08:40)
[2018-12-28] MEDS: ENOXAPARIN SODIUM 40 MG/0.4 ML DISP.SYRIN SQ SCH (08:43)
--- NOTE | 2018-12-28 10:25 | NUR ---
RN NOTE PT OF UNIT FOR VIDEO SWALLOW SCREEN
--- NOTE | 2018-12-28 10:45 | NUR ---
MS RN NOTE SPOKE WITH SPEECH THERAPIST LAURA, RECOMMENDING CONTINUE NPO STATUS BECAUSE PT ASPIRATED ON HONEY THICK.
--- NOTE | 2018-12-28 11:26 | NUR ---
MS RN NOTE LAB UNABLE TO OBTAIN BLOOD DRAW FOR VANCO TROUGH. PER LAB THEY WILL SEND ANOTHER BLOCK CLEANER TO TRY. WILL CONTINUE TO HOLD VANCOMYCIN IV.
--- NOTE | 2018-12-28 12:26 | NUR ---
MS CAREER REPRESENTATIVE OF CARE TRANSFER OF CARE TO ALIDA DENT. ENDORSE TO MAINTAIN NPO STATUS AFTER PT FAILED SWALLOW EVAL THIS MORNING, AND THAT VANCOMYCIN TROUGH IS STILL PENDING. PT IN BED, ALERT AND ORIENTED X1. NO ACUTE DISTRESS NOTED AT THIS TIME. BREATHING IS EVEN AND UNLABORED ON 2L NC. RIGHT UPPER ARM MIDLINE IS INFUSING ORDERED WITHOUT REDNESS OR SWELLING. ALL NEEDS ATTENDED TO. ASPIRATION PRECAUTIONS AN NPO STATUS MAINTAINED. BED IS LOCKED AND IN LOWEST POSITION, SIDE RAILS UP X3, BED ALARM ON, CALL LIGHT AND POSSESSIONS WITHIN REACH.
--- NOTE | 2018-12-28 13:00 | NUR ---
MS RN NOTES DR.KASHANI KAYE MADE AWARE ABOUT THE VIDEO SWALLOW STUDY,NNO NOTED.
--- NOTE | 2018-12-28 13:00 | NUR ---
MS RN NOTES RECEIVED PT FROM ALIDA GUTIERREZ FOR CHEN.PT IS LYING ON BED.ALERT/ORIENTED X1.ON ROOM AIR,TOLERATING WELL.NO SOB AND ACUTE DISTRESS NOTED.IV LINE IS ON RIGHT HAND G18.MIDLINE ON RIGHT UA.SITE IS CLEAN,DRY AND INTACT.NO INFILTRATION NOTED.SAFETY IS MAINTAINED AT ALL TIMES.BED IS IN ,LOW POSITION AND LOCKED.CALL LIGHT IS WITHIN REACH.WILL FOLLOW UP THE [facility] LEVEL.
[2018-12-28] MEDS: VANCOMYCIN 500 MG in IV D5W 100 ML IV SCH ×2 (13:18→23:59)
--- NOTE | 2018-12-28 13:18 | NUR ---
MS RN NOTES VANCO TROUGH IS 18,VERIFIED WITH PHARMACIST GRACIE TO GIVE IV VANCO 500MG.
[2018-12-28] MEDS: PANTOPRAZOLE 40 MG VIAL IV SCH (17:45)
--- NOTE | 2018-12-28 18:21 | NUR ---
MS RN NOTES GI ELECTRICAL CALIBRATOR GERRY SCHULTZ ORDERED TO PLAN EGD WITH PEG PLACEMENT IN AM.CALLED DAUGHTER JOSE D,SIMEON.SHE REFUSED TO GIVE CONSENT.ELECTRICAL CALIBRATOR GERRY SAID WILL CALL ANI BACK AND WILL EXPLAIN THE PROCEDURE.JOSE D SAID SHE WILL MAKE CALL BACK TO RICKI AFTER ELECTRICAL CALIBRATOR TALK TO HER.
--- NOTE | 2018-12-28 18:38 | NUR ---
MS RN CLOSING NOTES PT IS LYING ON BED.PT IS CLEAN AND DRY.WOUND CARE DONE.ALL DUE MEDS ARE GIVEN.NO SIGNIFICANT CHANGES NOTED IN THE SHIFT. ENDORSED TO LADIES UNDERWEAR OPERATOR RN FOR CHEN AND FOLLOW UP THE CONSENT FROM FAMILY.
[2018-12-28] MEDS: MIRTAZAPINE 15 MG TABLET PO SCH (22:00)
[2018-12-28] MEDS: TAMSULOSIN 0.4 MG CAP.SR.24H PO SCH (22:00)
[2018-12-28 23:01] LABS: IRON, SERUM 34 ug/dl (50-175); TOTAL IRON BINDING CAPACITY 100 ug/dl (250-450)
[2018-12-28] MEDS: IV 1/2NS 1000 ML 1,000 ML IV PRN (23:59)
[2018-12-29] MEDS: PIPERACILLIN /TAZOBACTAM 3.375 G in IV D5W 50 ML IV SCH ×5 (01:25→23:19)
[2018-12-29] MEDS: MORPHINE SULFATE INJ 2 MG/ML DISP.SYRIN IV PRN (01:26)
[2018-12-29] MEDS: ALBUTEROL HALF STRENGTH 1.25 MG/3 ML VIAL.NEB NEB SCH ×4 (01:54→20:26)
[2018-12-29 04:00] VITALS: BP_SYST 133; BP_SYST 157; BP_DIAS 84; BP_DIAS 97
[2018-12-29] MEDS: NYSTATIN/TRIAMCIN CREAM 15 GM TUBE TP SCH ×2 (06:50→17:34)
--- NOTE | 2018-12-29 07:05 | NUR ---
MS RN OPENING NOTES RECEIVED PT LYING ON BED.ALERT/ORIENTED X1.ON RA,TOLERATING WELL.NO SOB AND ACUTE DISTRESS NOTED.FC IS IN PLACE WITH CLEAR YELLOW URINE.IV LINE IS ON RIGHT HAND G18,AND DASIA MIDLINE PRESENT.SITE IS CLEAN DRY AND INTACT.NO INFILTRATION NOTED.BED IS IN LOW POSITION AND LOCKED.CALL LIGHT IS WITHIN REACH.WILL CONTINUE TO MONITOR THE PT CLOSELY AND FOLLOW UP THE EGD PROCEDURE.
[2018-12-29 07:41] LABS: CALCIUM, SERUM 8.4 mg/dL (8.5-10.1); CARBON DIOXIDE 25 mmol/L (21-32); CHLORIDE 104 mmol/L (98-107); CREATININE 0.4 mg/dL (0.6-1.3); GLUCOSE 74 mg/dL (74-106); POTASSIUM 3.2 mmol/L (3.5-5.1); SODIUM SERUM 139 mmol/L (136-145); UREA NITROGEN, BLOOD 4 mg/dL (7-18)
[2018-12-29 08:00] VITALS: BP 131/75
--- NOTE | 2018-12-29 08:00 | NUR ---
MS RN NOTES NETWORK DESIGN ARCHITECT GERRY MADE AWARE ABOUT THE DAUGHTER IS OK TO DO EGD AND REFUSED PEG PLACEMENT.NO NEW ORDERS NOTED.
--- NOTE | 2018-12-29 08:00 | NUR ---
MS RN NOTES CALLED DAUGHTER JOSE D TO GET THE CONSENT FOR EGD WITH PEG PLACEMENT AND SHE STILL REFUSED, PER HER JR. JAVA DEVELOPER GERRY,GI DIDN'T CALL LAST NIGHT.JR. JAVA DEVELOPER GERRY MADE AWARE AND SAID WILL CALL DAUGHTER RIGHT NOW AND JOSE D SAID WILL CALL BACK AFTER JR. JAVA DEVELOPER TALK TO HER.
[2018-12-29] MEDS: ASCORBIC ACID 500 MG TABLET PO SCH (08:17)
[2018-12-29] MEDS: ZINC SULFATE 220 MG CAPSULE PO SCH (08:17)
[2018-12-29] MEDS: GABAPENTIN 300 MG CAPSULE PO SCH ×2 (08:17→17:00)
[2018-12-29] MEDS: DAKINS QUARTER STRENGTH (0.125%) 480 ML BOTTLE TOP SCH (08:18)
[2018-12-29] MEDS: Z GUARD REMEDY 2 OZ OINT TP SCH (08:19)
[2018-12-29] MEDS: POTASSIUM CL. PREMIX PERIPHER. 50 ML IV SCH ×4 (11:16→17:33)
[2018-12-29] MEDS: VANCOMYCIN 500 MG in IV D5W 100 ML IV SCH ×2 (12:24→23:19)
[2018-12-29 16:00] VITALS: BP 163/93
[2018-12-29] MEDS ORDERED: POTASSIUM CL. PREMIX PERIPHER. 50 ML IV SCH (17:30)
[2018-12-29] MEDS: PANTOPRAZOLE 40 MG VIAL IV SCH (17:35)
--- NOTE | 2018-12-29 18:47 | NUR ---
MS RN CLOSING NOTES PT IS LYING ON BED.IV POTASSIUM IS REPLACED.ALL DUE MEDS ARE GIVEN.NO SIGNIFICANT CHANGES NOTED IN THE SHIFT.FAMILY STILL DISNT CALL BACK FOR THE CONSENT.ENDORSED TO OSTRICH FARMER RN FOR CHEN.
--- NOTE | 2018-12-29 19:24 | NUR ---
MS RN NOTE PATIENT REPORT GIVEN BEDSIDE. PATIENT A/O X 1. SINHALA SPEAKING PATIENT IN BED. NO ACUTE S/S OF DISTRESS. PATIENT HAS DASIA MIDLINE INTACT PATENT RUNNING 1/2 NS @100 ML/HR. PATIENT ALSO HAS 18G RUE SL. RN WILL CONTINUE TO MONITOR PATIENT.
[2018-12-29 19:45] VITALS: BP 140/81
[2018-12-29] MEDS: TAMSULOSIN 0.4 MG CAP.SR.24H PO SCH (22:00)
[2018-12-29] MEDS: MIRTAZAPINE 15 MG TABLET PO SCH (22:00)
[2018-12-30] VITALS (7 sets, daily range): BP systolic 114–166; BP diastolic 26–99
[2018-12-30] MEDS: ALBUTEROL HALF STRENGTH 1.25 MG/3 ML VIAL.NEB NEB SCH ×4 (00:34→20:11)
[2018-12-30] MEDS: PIPERACILLIN /TAZOBACTAM 3.375 G in IV D5W 50 ML IV SCH ×3 (05:52→18:43)
[2018-12-30] MEDS: NYSTATIN/TRIAMCIN CREAM 15 GM TUBE TP SCH ×2 (05:53→18:42)
[2018-12-30] MEDS: ASCORBIC ACID 500 MG TABLET PO SCH (09:00)
[2018-12-30] MEDS: GABAPENTIN 300 MG CAPSULE PO SCH ×2 (09:00→17:00)
[2018-12-30] MEDS: ZINC SULFATE 220 MG CAPSULE PO SCH (09:00)
[2018-12-30] MEDS: DAKINS QUARTER STRENGTH (0.125%) 480 ML BOTTLE TOP SCH (09:16)
[2018-12-30] MEDS: Z GUARD REMEDY 2 OZ OINT TP SCH (09:16)
[2018-12-30] MEDS: VANCOMYCIN 500 MG in IV D5W 100 ML IV SCH ×2 (12:58→23:24)
[2018-12-30 13:16] LABS: CALCIUM, SERUM 8.2 mg/dL (8.5-10.1); CARBON DIOXIDE 24 mmol/L (21-32); CHLORIDE 102 mmol/L (98-107); CREATININE 0.4 mg/dL (0.6-1.3); GLUCOSE 76 mg/dL (74-106); POTASSIUM 3.8 mmol/L (3.5-5.1); SODIUM SERUM 137 mmol/L (136-145); UREA NITROGEN, BLOOD 4 mg/dL (7-18)
--- NOTE | 2018-12-30 18:00 | NUR ---
RANDY BREAKER LAYER IN AND ORDERS GIVEN.
[2018-12-30] MEDS: PANTOPRAZOLE 40 MG VIAL IV SCH (18:44)
--- NOTE | 2018-12-30 19:30 | NUR ---
MS/RN OPENING NOTES PT RECEIVED AWAKE, NONVERBAL BUT WITH EYES OPEN. TRACKS. EXTREMITIES CONTRACTED. ON 2L O2 VIA NC, BREATHING EVEN AND UNLABORED. NO S/S OF SOB, PAIN OR ACUTE DISTRESS. DASIA MIDLINE AND RIGHT HAND IV PATENT AND INTACT. IV ZOSYN CURRENTLY INFUSING. GARCIA IN PLACE AND DRAINING TO GRAVITY. BED IN LOW/LOCKED POSITION WITH HOB ELEVATED, SIDE RAILS UPX3 AND HEELS OFFLOADED. WILL CONTINUE TO MONITOR
[2018-12-30] MEDS: MIRTAZAPINE 15 MG TABLET PO SCH (22:00)
[2018-12-30] MEDS: TAMSULOSIN 0.4 MG CAP.SR.24H PO SCH (22:00)
--- NOTE | 2018-12-30 22:08 | NUR ---
MS/RN NOTES SPOKE TO ANI, PT'S DAUGHTER. UPDATES PROVIDED. ANI IS STILL HAS QUESTIONS TO DISCUSS WITH PHYSICAL FITNESS TEACHERLYNN REGARDING EGD/PEG PLACEMENT. WILLING TO GO THROUGH WITH PROCEDURE IF PT'S REALLY NEEDS IT. MADE AWARE THAT PT'S IS ASPIRATING PER VIDEO SWALLOW STUDY AND ST NOTES. TELEPHONE CONSENT FOR EGD/PEG PLACEMENT NOT COMPLETED, ANI WOULD LIKE TO COME IN THE MORNING AND DISCUSS FURTHER WITH RN/MD. WILLING TO SIGN TOMORROW POSSIBLY. MEDICAL EDUCATION MANAGER MADE AWARE.
[2018-12-31] VITALS (7 sets, daily range): BP systolic 113–145; BP diastolic 45–96
--- NOTE | 2018-12-31 | NUR ---
MS/RN NOTES PT ROUNDING DONE. TURNED/REPOSITIONED PT PER PROTOCOL. HEELS OFFLOADED. HOB REMAINS ELEVATED. IN NO ACUTE DISTRESS.
[2018-12-31] MEDS: ALBUTEROL HALF STRENGTH 1.25 MG/3 ML VIAL.NEB NEB SCH ×4 (00:50→19:46)
[2018-12-31] MEDS: PIPERACILLIN /TAZOBACTAM 3.375 G in IV D5W 50 ML IV SCH ×5 (00:54→23:57)
[2018-12-31] MEDS: IV 1/2NS 1000 ML 1,000 ML IV PRN (01:02)
[2018-12-31] MEDS: NYSTATIN/TRIAMCIN CREAM 15 GM TUBE TP SCH ×2 (06:25→18:39)
--- NOTE | 2018-12-31 06:49 | NUR ---
MS/RN CLOSING NOTES PT ASLEEP, OPENS EYES SPONTANEOUSLY. REMAINS NONVERBAL. ON 2L O2 VIA NC, BREATHING EVEN AND UNLABORED. NO S/S OF SOB OR PAIN, NO FACIAL GRIMACING NOTED. IV TO RIGHT HAND PATENT AND INTACT AND DASIA MIDLINE RUNNING IVF ORDERED. GARCIA IN PLACE AND DRAINING TO GRAVITY. MAINTAINED NPO STATUS. DAUGHTER TO COME TODAY AND SPEAK TO RN/MD REGARDING EGD/PEG PLACEMENT. WILLING TO SIGN CONSENT ONCE ALL QUESTIONS HAVE BEEN ANSWERED. NO SIGNIFICANT CHANGES OVERNIGHT. TURNED/REPOSITIONED Q2H, HEELS OFFLOADED. BED REMAINS IN LOW/LOCKED POSITION WITH CALL LIGHT IN REACH, BILAT. UPPER SIDE RAILS IN PLACE AND HOB ELEVATED. WILL ENDORSE TO DAY SHIFT RN CHEN.
--- NOTE | 2018-12-31 07:20 | NUR ---
RN CLOSING NOTES PT ASLEEP, OPENS EYES SPONTANEOUSLY. REMAINS NONVERBAL. ON 2L O2 VIA NC, BREATHING EVEN AND UNLABORED. NO S/S OF SOB OR PAIN, NO FACIAL GRIMACING NOTED. IV TO RIGHT HAND PATENT AND INTACT AND DASIA MIDLINE RUNNING IVF ORDERED. GARCIA IN PLACE AND DRAINING TO GRAVITY. MAINTAINED NPO STATUS. DAUGHTER GAVE CONSENT OVER TELEPHONE FOR PEG PLACEMENT. NO SIGNIFICANT CHANGES DURING THE DAY. TURNED/REPOSITIONED Q2H, HEELS OFFLOADED. BED REMAINS IN LOW/LOCKED POSITION WITH CALL LIGHT IN REACH, BILAT. UPPER SIDE RAILS IN PLACE AND HOB ELEVATED. WILL ENDORSE TO EXAMINING OFFICER RN CHEN
--- NOTE | 2018-12-31 07:30 | NUR ---
RN OPENING NOTES PT ASLEEP, OPENS EYES SPONTANEOUSLY. REMAINS NONVERBAL. ON 2L O2 VIA NC, BREATHING EVEN AND UNLABORED. NO S/S OF SOB OR PAIN, NO FACIAL GRIMACING NOTED. IV TO RIGHT HAND PATENT AND INTACT AND DASIA MIDLINE RUNNING IVF ORDERED. GARCIA IN PLACE AND DRAINING TO GRAVITY. MAINTAINED NPO STATUS. DAUGHTER TO COME TODAY AND SPEAK TO RN/MD REGARDING EGD/PEG PLACEMENT. WILLING TO SIGN CONSENT ONCE ALL QUESTIONS HAVE BEEN ANSWERED. NO SIGNIFICANT CHANGES OVERNIGHT. WILL TURN AND REPOSITION Q2H, HEELS OFFLOADED. BED REMAINS IN LOW/LOCKED POSITION WITH CALL LIGHT IN REACH, BILAT. UPPER SIDE RAILS IN PLACE AND HOB ELEVATED. WILL CONTINUE TO MONITOR.
[2018-12-31] MEDS: GABAPENTIN 300 MG CAPSULE PO SCH ×2 (09:00→17:00)
[2018-12-31] MEDS: ASCORBIC ACID 500 MG TABLET PO SCH (09:00)
[2018-12-31] MEDS: ZINC SULFATE 220 MG CAPSULE PO SCH (09:00)
[2018-12-31] MEDS: DAKINS QUARTER STRENGTH (0.125%) 480 ML BOTTLE TOP SCH (10:44)
[2018-12-31] MEDS: Z GUARD REMEDY 2 OZ OINT TP SCH (10:44)
[2018-12-31] MEDS: VANCOMYCIN 500 MG in IV D5W 100 ML IV SCH ×2 (12:51→23:44)
[2018-12-31] MEDS: PANTOPRAZOLE 40 MG VIAL IV SCH (17:30)
--- NOTE | 2018-12-31 17:45 | NUR ---
RN NOTES CHARGE NURSE SOON OBTAINED CONSENT FROM DAUGHTER AND WITNESSED WITH ALIDA FRENCH OVER TELEPHONE FOR PEG PLACEMENT.
--- NOTE | 2018-12-31 19:30 | NUR ---
MS RN NOTES RECEIVED ON BED A/O X1,NON VERBAL,OPEN EYES,FULL CODE,BED BOUND,WITH MULTIPLE WOUNDS RIGHT ELBOW,HIP RIGHT AND LEFT,SACRUM AND BUTTOCKS.WITH RIGHT UPPER ARM MIDLINE,NC AT 100ML/HR RATE IN PROGRESS.RIGHT HAND SALINE LOCK INTACT AND PATENT.FIOLEY CATH IN PLACE DRAINING YELLOWISH OUTPUT.ON KCI MATTRESS FOR WOUND MANAGEMENT.NPO STATUS FOR PROCEDURE IN THE MORNING.WILL CONTINUE TO MONITOR STATUS.
[2018-12-31] MEDS: TAMSULOSIN 0.4 MG CAP.SR.24H PO SCH (21:38)
[2018-12-31] MEDS: MIRTAZAPINE 15 MG TABLET PO SCH (21:38)
[2019-01-01] VITALS: BP 120/78
--- NOTE | 2019-01-01 | NUR ---
MS RN NOTES VANCOMYCIN TROUGH 23,DOSE HELD PER PROTOCOL
[2019-01-01] MEDS: ALBUTEROL HALF STRENGTH 1.25 MG/3 ML VIAL.NEB NEB SCH ×4 (02:14→20:13)
[2019-01-01 04:00] VITALS: BP 120/81
[2019-01-01] MEDS: NYSTATIN/TRIAMCIN CREAM 15 GM TUBE TP SCH ×2 (05:25→17:22)
[2019-01-01] MEDS: PIPERACILLIN /TAZOBACTAM 3.375 G in IV D5W 50 ML IV SCH ×4 (05:25→23:09)
--- NOTE | 2019-01-01 06:10 | NUR ---
MS RN NOTES FAIRLY RESTED.IV ABX TOLERATED WELL,MIDLINE RIGHT UPPER ARM REMAINS PATENT.KEPT NPO ORDERED,GOING FOR EGD,AND PEG PLACEMENT TODAY AT 1430,CONSENT ON CHART.MORNING CARE RENDERED.DRESSING CHANGE DONE ON SACRAL AREA.MEPILEX APPLIED ON BOTH HEELS,REPOSITIONED.WILL ENDORSE TO DAY NURSE FOR CHEN.
[2019-01-01 07:15] LABS: CALCIUM, SERUM 8.5 mg/dL (8.5-10.1); CARBON DIOXIDE 27 mmol/L (21-32); CHLORIDE 101 mmol/L (98-107); CREATININE 0.5 mg/dL (0.6-1.3); GLUCOSE 82 mg/dL (74-106); SODIUM SERUM 140 mmol/L (136-145); UREA NITROGEN, BLOOD 4 mg/dL (7-18)
[2019-01-01 07:24] LABS: POTASSIUM 2.5 mmol/L (3.5-5.1)
[2019-01-01 08:00] VITALS: BP 121/73
[2019-01-01] MEDS: GABAPENTIN 300 MG CAPSULE PO SCH ×2 (08:43→16:40)
[2019-01-01] MEDS: ZINC SULFATE 220 MG CAPSULE PO SCH (08:43)
[2019-01-01] MEDS: DAKINS QUARTER STRENGTH (0.125%) 480 ML BOTTLE TOP SCH (08:43)
[2019-01-01] MEDS: Z GUARD REMEDY 2 OZ OINT TP SCH (08:43)
[2019-01-01] MEDS: ASCORBIC ACID 500 MG TABLET PO SCH (08:43)
--- NOTE | 2019-01-01 09:45 | NUR ---
RN NOTE SPOKE WITH DR SNIDER REGARDING PT POTASSIUM =2.5, HE ORDERED 40MEQ IV AND 40 MEQ ADDED TO IV FLIUDS. AND TO DISCHARGE AFTER PEG TUBE PLACEMENT. WILL JESSE PRUITT.
[2019-01-01] MEDS ORDERED: POTASSIUM CHLORIDE 10 MEQ/50 ML PREMIXED IVPB FOR PERIPHERAL LINE IV SCH (10:00)
[2019-01-01] MEDS: POTASSIUM CL. PREMIX PERIPHER. 50 ML IV SCH ×4 (10:10→13:34)
[2019-01-01] MEDS: VANCOMYCIN 500 MG in IV D5W 100 ML IV SCH ×2 (12:00→14:07)
--- NOTE | 2019-01-01 12:33 | NUR ---
RN NOTE VANCOMYCIN ANTIBIOTIC HELD AT 1200 DUE TO TROUGH=23, PHARMACY AWARE AND TO FOLLOW UP.
[2019-01-01] MEDS ORDERED: VANCOMYCIN 500 MG in IV D5W 100 ML IV SCH (14:00)
--- NOTE | 2019-01-01 15:18 | NUR ---
RN NOTE PER OR ANESTHESIOLOGIST CANCELLED PEG TUBE PLACEMENT TODAY DUE TO LOW POTASSIUM LEVEL, K=3.1. DR CLINTON AWARE AND TELETYPEWRITER INSTALLER GERRY LYNN AWARE, CASE MANGER AND DAUGHTER NOTIFIED, LEFT MESSAGE WITH DR SNIDER'S OFFICE REGARDING THE CASE. WILL MONITOR PT CLOSELY.
[2019-01-01 16:00] VITALS: BP 128/80
[2019-01-01] MEDS: PANTOPRAZOLE 40 MG VIAL IV SCH (17:08)
--- NOTE | 2019-01-01 19:10 | NUR ---
MS RN NOTE RECEIVED PT IN STABLE CONDITION, NO SIGNS OF SOB OR DISTRESS, NO INDICATIONS OF PAIN. GARCIA CATH PATENT AND ADEQUATELY DRAINING URINE. DASIA MIDLINE INTACT AND INFUSING IVF, TOLERATING WELL. PT WILL BE REPOSITIONED Q2H, AND PRN. ALL CURRENT NEEDS MET. SAFETY PRECAUTIONS IN PLACE: BED LOW, LOCKED, UPPER RAILS UP, AND CALL LIGHT WITHIN REACH. WILL CONT TO MONITOR.
[2019-01-01 20:00] VITALS: BP 137/89
[2019-01-01] MEDS: TAMSULOSIN 0.4 MG CAP.SR.24H PO SCH (22:00)
[2019-01-01] MEDS: MIRTAZAPINE 15 MG TABLET PO SCH (22:00)
--- NOTE | 2019-01-01 22:00 | NUR ---
MS RN NOTE 2200 MEDS NOT GIVEN D/T NG TUBE PLACEMENT NOT CONFIRMED. XRAY WAS TAKEN AT 2133 BUT NOT READ BY .
[2019-01-02] MEDS: ALBUTEROL HALF STRENGTH 1.25 MG/3 ML VIAL.NEB NEB SCH ×4 (01:36→20:10)
[2019-01-02] MEDS: PIPERACILLIN /TAZOBACTAM 3.375 G in IV D5W 50 ML IV SCH (05:06)
[2019-01-02] MEDS: NYSTATIN/TRIAMCIN CREAM 15 GM TUBE TP SCH ×2 (05:57→17:12)
--- NOTE | 2019-01-02 06:20 | NUR ---
MS RN NOTE PT IN STABLE CONDITION, NO SIGNS OF SOB OR DISTRESS, NO INDICATIONS OF PAIN. GARCIA CATH PATENT AND ADEQUATELY DRAINING URINE. DASIA MIDLINE INTACT AND INFUSING IVF, TOLERATING WELL. PT REPOSITIONED Q2H, AND PRN. NG TUBE INSERTED ORDERED, AWAITING CONFIRMATION OF PLACEMENT VIA MD. ALL CURRENT NEEDS MET. SAFETY PRECAUTIONS IN PLACE: BED LOW, LOCKED, UPPER RAILS UP, AND CALL LIGHT WITHIN REACH. WILL CONT TO MONITOR AND ENDORSE TO NEXT SHIFT FOR CHEN.
[2019-01-02 08:00] VITALS: BP 138/83
[2019-01-02] MEDS: GABAPENTIN 300 MG CAPSULE PO SCH ×2 (09:00→17:00)
[2019-01-02] MEDS: ASCORBIC ACID 500 MG TABLET PO SCH (09:00)
[2019-01-02] MEDS: ZINC SULFATE 220 MG CAPSULE PO SCH (09:00)
[2019-01-02 09:36] LABS: CALCIUM, SERUM 8.7 mg/dL (8.5-10.1); CARBON DIOXIDE 27 mmol/L (21-32); CHLORIDE 102 mmol/L (98-107); CREATININE 0.5 mg/dL (0.6-1.3); GLUCOSE 80 mg/dL (74-106); POTASSIUM 4.1 mmol/L (3.5-5.1); SODIUM SERUM 138 mmol/L (136-145); UREA NITROGEN, BLOOD 4 mg/dL (7-18)
[2019-01-02] MEDS: Z GUARD REMEDY 2 OZ OINT TP SCH (10:03)
[2019-01-02] MEDS: DAKINS QUARTER STRENGTH (0.125%) 480 ML BOTTLE TOP SCH (10:03)
[2019-01-02] MEDS: VANCOMYCIN 500 MG in IV D5W 100 ML IV SCH (10:43)
[2019-01-02] MEDS: HYDROCODONE/APAP 5/325MG 1 EACH TABLET PO PRN (11:17)
--- NOTE | 2019-01-02 11:19 | NUR ---
[place] administration at this time for premedication at request of family prior to wound debridement. Jf Burroughs RN
[2019-01-02] MEDS ORDERED: SILVER NITRATE APPLICATOR 1 EA BOX TP ONE (11:30)
[2019-01-02] MEDS ORDERED: LIDOCAINE 2%-EPI 1:100,000 30 ML VIAL TP ONE (11:30)
[2019-01-02 16:00] VITALS: BP 132/77
[2019-01-02] MEDS: PANTOPRAZOLE 40 MG VIAL IV SCH (17:11)
--- NOTE | 2019-01-02 19:18 | NUR ---
Handoff to ALIDA Gong. Jf Burroughs RN
--- NOTE | 2019-01-02 19:30 | NUR ---
MS RN NOTE: RECEIVED PT ON BED AWAKE BUT NON VERBAL. NO ACUTE DISTRESS NOTED. NO FACIAL GRIMACING OR ANY SIGNS OF PAIN NOTED. NO SOB NOTED. RIGHT NARE NGT INTACT, PATENT AND IN PLACED. GARCIA CATH INTACT, DRAINING WELL. RIGHT UPPER ARM MIDLINE INTACT AND PATENT, IVF INFUSING WELL. KEPT CLEAN, DRY AND COMFORTABLE. SAFETY AND FALL PRECAUTIONS OBSERVED AND MAINTAINED. WILL CONTINUE TO MONITOR PT.
[2019-01-02 20:00] VITALS: BP 132/87
--- NOTE | 2019-01-02 20:20 | NUR ---
MS RN NOTE: RECEIVED A CALL FROM GERRY BAILEY WITH ORDER TO START GTF GLUCERNA 1.2 START AT 15ML/HR AND INCREASE BY 10ML/HR EVERY 4HRS TOLERATED, GOAL IS 40ML/HR. ORDER CARRIED OUT AND DONE. WILL CONTINUE TO MONITOR PT.
[2019-01-02] MEDS: GLUCERNA 1.2 1,000 ML BOTTLE NG PRN (21:40)
[2019-01-02] MEDS: TAMSULOSIN 0.4 MG CAP.SR.24H PO SCH (21:43)
[2019-01-02] MEDS: MIRTAZAPINE 15 MG TABLET PO SCH (21:44)
[2019-01-03] MEDS: ALBUTEROL HALF STRENGTH 1.25 MG/3 ML VIAL.NEB NEB SCH ×4 (00:32→19:45)
[2019-01-03 04:00] VITALS: BP 135/89
[2019-01-03] MEDS: NYSTATIN/TRIAMCIN CREAM 15 GM TUBE TP SCH ×2 (05:54→18:42)
--- NOTE | 2019-01-03 06:43 | NUR ---
MS RN NOTE: NO CHANGES NOTED THROUGHOUT THE SHIFT. NO ACUTE DISTRESS NOTED. NO FACIAL GRIMACING OR ANY SIGNS OF PAIN NOTED. ON 2LPM NASAL CANNULA, NO SOB NOTED. RIGHT NARE NGT INTACT AND AND IN PLACED, GTF ABLE TO TOLERATE WELL. HEAD OF BED KEPT ELEVATED. GARCIA CATH INTACT AND PATENT, DRAINING WELL. KEPT CLEAN, DRY AND COMFORTABLE. SAFETY AND FALL PRECAUTIONS OBSERVED AND MAINTAINED. WILL ENDORSE TO DAY SHIFT RN FOR CONTINUITY OF CARE.
--- NOTE | 2019-01-03 07:00 | NUR ---
RN INITIAL NOTES RECEIVED PT IN BED, NONVERBAL OPENS EYES. PT IS ON RA. O2 SAT 96%. NGT IN PLACE. AUSCULTATED TO CONFIRM PLACEMENT. NO RESIDUAL NOTED UPON ASPIRATION. FEEDING RUNNING AT 40ML/HR. HOB ELEVATED TO 35 DEG. F/C IN PLACE DRAINING CLOUDY YELLOW URINE. PT ON KCI MATTRESS. DASIA MIDLINE C/D/I/P. IV FLUIDS INFUSING. BED IN LOCKED/LOWEST POSITION. CALL LIGHT IN REACH. PT UNABLE TO USE CALL LIGHT. WILL CONT TO MONITOR.
[2019-01-03 07:25] LABS: CALCIUM, SERUM 9.1 mg/dL (8.5-10.1); CARBON DIOXIDE 23 mmol/L (21-32); CHLORIDE 100 mmol/L (98-107); CREATININE 0.5 mg/dL (0.6-1.3); GLUCOSE 102 mg/dL (74-106); POTASSIUM 4.9 mmol/L (3.5-5.1); SODIUM SERUM 135 mmol/L (136-145); UREA NITROGEN, BLOOD 4 mg/dL (7-18)
[2019-01-03 08:00] VITALS: BP 128/72
[2019-01-03] MEDS: DAKINS QUARTER STRENGTH (0.125%) 480 ML BOTTLE TOP SCH (09:19)
[2019-01-03] MEDS: ASCORBIC ACID 500 MG TABLET PO SCH (09:19)
[2019-01-03] MEDS: GABAPENTIN 300 MG CAPSULE PO SCH ×2 (09:19→16:21)
[2019-01-03] MEDS: ZINC SULFATE 220 MG CAPSULE PO SCH (09:19)
[2019-01-03] MEDS: Z GUARD REMEDY 2 OZ OINT TP SCH (09:20)
[2019-01-03] MEDS ORDERED: IV 1/2NS 1000 ML 1,000 ML IV SCH (10:30)
[2019-01-03] MEDS ORDERED: FUROSEMIDE 40 MG/4 ML VIAL IV ONE (12:00)
[2019-01-03] MEDS: IV D5/ 0.9% NACL 1,000 ML IV PRN (13:38)
[2019-01-03 16:00] VITALS: BP 118/77
[2019-01-03] MEDS: PANTOPRAZOLE 40 MG VIAL IV SCH (16:22)
--- NOTE | 2019-01-03 19:30 | NUR ---
MS RN END OF SHIFT NOTES REPORTED TO NOC NURSE FOR CHEN. PT IN BED, RESTING WITH NGT IN PLACE. PT WILL BE NPO AFTER MIDNIGHT FOR PROCEDURE. BED IN LOCKED/LOWEST POSITION. CALL LIGHT IN REACH. ALL NEEDS ATTENDED TO.
--- NOTE | 2019-01-03 19:50 | NUR ---
RN MS OPENING NOTES RECEIVED PT IN BED, AWAKE, NON VERBAL, OPENS EYES. BREATHING EVEN AND UNLABORED ON 2L OF O2 VIA NC, NO SOB, COUGH OR CONGESTION NOTED. IN NO APPARENT PAIN OR DISCOMFORT AT THIS TIME, RIGHT NARE NG TUBE IN PLACE WITH GLUCERNA @40ML/HR AND TOLERATING, NO RESIDUAL AT THIS TIME WILL BE NPO AFTER MIDNIGHT FOR EGD AND PEG PLACEMENT IN THE AM. DASIA MIDLINE IN PLACE WITH D5NS @75ML/HR . F/C IN PLACE AND DRAINING, PT CLEAN AND COMFORTABLE, BED IN LOWEST LOCKED POSITION, WILL CONTINUE TO MONITOR FREQUENTLY.
[2019-01-03 20:00] VITALS: BP 128/82
[2019-01-03] MEDS: MIRTAZAPINE 15 MG TABLET PO SCH (21:42)
[2019-01-03] MEDS: HYDROCODONE/APAP 5/325MG 1 EACH TABLET PO PRN (21:42)
[2019-01-03] MEDS: TAMSULOSIN 0.4 MG CAP.SR.24H PO SCH (21:42)
[2019-01-04] VITALS (27 sets, daily range): BP systolic 62–162; BP diastolic 46–93
[2019-01-04] MEDS: MORPHINE SULFATE INJ 2 MG/ML DISP.SYRIN IV PRN (01:14)
[2019-01-04] MEDS: ALBUTEROL HALF STRENGTH 1.25 MG/3 ML VIAL.NEB NEB SCH ×4 (01:51→20:01)
[2019-01-04] MEDS: NYSTATIN/TRIAMCIN CREAM 15 GM TUBE TP SCH ×2 (05:48→18:54)
[2019-01-04] MEDS: IV D5/ 0.9% NACL 1,000 ML IV PRN (05:48)
--- NOTE | 2019-01-04 06:23 | NUR ---
RN MS CLOSING NOTES PT REMAINS IN BED, SLEEPING, EASILY AROUSED TO NAME CALL, BREATHING EVEN AND UNLABORED ON ROOM AIR, SOB, COUGH OR CONGESTION NOTED. IN NO APPARENT PAIN OR DISCOMFORT AT THIS TIME, DASIA MIDLINE IN PLACE WITH D5NS @75ML/HR. NG TUBE IN PLACE, REMAINS NPO FOR PROCEDURE AT 10AM. F/C IN PLACE AND DRAINING, 500ML OUT. PT CLEAN AND COMFORTABLE, WOUND DRESSING CHANGED. BED IN LOWEST LOCKED POSITION, WILL ENDORSE TO DAY NURSE FOR CHEN
[2019-01-04 07:14] LABS: CALCIUM, SERUM 8.9 mg/dL (8.5-10.1); CARBON DIOXIDE 32 mmol/L (21-32); CHLORIDE 103 mmol/L (98-107); CREATININE 0.5 mg/dL (0.6-1.3); GLUCOSE 119 mg/dL (74-106); SODIUM SERUM 138 mmol/L (136-145); UREA NITROGEN, BLOOD 7 mg/dL (7-18)
--- NOTE | 2019-01-04 07:20 | NUR ---
RN OPENING NOTE RECEIVED PATIENT ASLEEP, BUT EASILY AROUSABLE. PATIENT IS NON VERBAL BUT NODS TO QUESTIONS. NO COMPLAINS OF PAIN OR SOB. HAS A GARCIA CATH ON GRAVITY WITH CLEAR AND YELLOW URINE. NPO FOR NOW BECAUSE HAS AN EGD/PEG PLACEMENT TODAY AT 1000. HAS A NG TUBE PLACED. NO FEEDING RUNNING. HAS A RIGHT UPPER ARM MIDLINE WITH D5NS RUNNING AT 75ML/HR. BED ALARM ON AND ON LOWEST POSITION. WILL CONTINUE TO MONITOR
[2019-01-04] MEDS: ASCORBIC ACID 500 MG TABLET PO SCH (08:35)
[2019-01-04] MEDS: ZINC SULFATE 220 MG CAPSULE PO SCH (08:35)
[2019-01-04] MEDS: GABAPENTIN 300 MG CAPSULE PO SCH ×2 (08:35→17:12)
[2019-01-04] MEDS: Z GUARD REMEDY 2 OZ OINT TP SCH (08:36)
[2019-01-04] MEDS: DAKINS QUARTER STRENGTH (0.125%) 480 ML BOTTLE TOP SCH (08:36)
[2019-01-04] MEDS ORDERED: ANESTHESIA TRAY IN PYXIS 1 EA TRAY MC ONE (09:01)
--- NOTE | 2019-01-04 10:00 | NUR ---
RN NOTE PATIENT HAS BEEN PICKED UP FOR PEG PLACEMENT.
[2019-01-04] MEDS ORDERED: ALBUTEROL FS 2.5 MG/3 ML VIAL.NEB ONE (11:05)
--- NOTE | 2019-01-04 11:30 | NUR ---
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 REPORT RECEIVED FROM MANGO RN. PT HAD BEEN REINTUBATED AFTER DEVELOPING RESP DISTRESS DURING RECOVERY S/P GASTROSTOMY PLACEMENT.
--- NOTE | 2019-01-04 11:40 | NUR ---
RN NOTE PATIENT WAS TRANSFERRED TO ICU FROM OR. BROUGHT ALL PATIENT'S BELONGINGS TO ICU AND GAVE REPORT TO ALIDA CHAMBERS.
[2019-01-04] MEDS ORDERED: IV NS 0.9% 1,000 ML BAG IV STA (11:56)
[2019-01-04] MEDS ORDERED: PROPOFOL 100 ML IV PRN (12:00)
--- NOTE | 2019-01-04 12:15 | NUR ---
ICU/RN: Assumed care of pt s/p EGD. Pt currently on mechanical ventilation, no distress noted, with periods of restlessness. Pt interactive and able to nod to yes or no questions. IVF infusing well through DASIA ML. Post-op orders from Dr Green noted and carried out.
[2019-01-04] MEDS ORDERED: IV NS 0.9% 1,000 ML IV ONE (12:30)
--- NOTE | 2019-01-04 14:10 | NUR ---
RT PT DIDN'T TOLERATE CPAP PLACED BACK ON AC
--- NOTE | 2019-01-04 14:30 | NUR ---
ICU/RN: Pt unable to tolerate CPAP trial, pt RR 6 with long periods of apnea. Remains drowsy. Per Dr Cochran place on SIMV mode as ordered and will reassess extubation readiness in am.
[2019-01-04] MEDS: GLUCERNA 1.2 1,000 ML BOTTLE NG PRN (15:32)
[2019-01-04] MEDS: PANTOPRAZOLE 40 MG VIAL IV SCH (17:32)
--- NOTE | 2019-01-04 18:40 | NUR ---
ICU/RN: [facility] PARTS PROCESSOR rounds; updated on pt status. Informed of dieticians TF recommendations, new orders noted and carried out. Called dietary regarding TF delivery. 3rd time calling Rx regarding [address] [employer] delivery. Awaiting delivery.
[2019-01-04] MEDS: JEVITY 1.2 CAL 1,000 ML BOTTLE GT PRN (19:08)
--- NOTE | 2019-01-04 20:00 | NUR ---
RN INITIAL NOTES Received patient in bed.Pt currently on mechanical ventilation tolerating settings well , no distress noted, no SOB noted at this time. Pt interactive and able to nod to yes or no questions. no complaint of pain at this time. ST on cafeteria monitor. IVF infusing well through DASIA as ordered. GTT at 40ml/hr is running with 80ml of residual at this time. all safety measures are implemented, bed in low, locked position, call light in reach. will continue to monitor patient closely.
--- NOTE | 2019-01-04 20:36 | NUR ---
RECEIVED PT INTUBATED 8.0 ETT SECURED AT 22CM AT THE LIP. NO DISTRESS PT TOLERATING VENT SETTINGS. SX'D FOR SML AMT OF THICK WHITE SECRETIONS. VENT ALARMS SET AND AUDIBLE. AMBU BAG AT BEDSIDE. VENT PLUGGED INTO RED OUTLET. WILL CONTINUE TO MONITOR. Addendum: 01/04/19 at 2036 by LISANDRA ROMO RT Amended: Links added.
[2019-01-04] MEDS: MIRTAZAPINE 15 MG TABLET PO SCH (22:15)
[2019-01-04] MEDS: ACETAMINOPHEN 325 MG TABLET PO PRN (22:15)
[2019-01-04] MEDS: TAMSULOSIN 0.4 MG CAP.SR.24H PO SCH (22:16)
[2019-01-04 22:36] LABS: OCCULT BLOOD STOOL POSITIVE (NEGATIVE)
[2019-01-05] VITALS (37 sets, daily range): BP systolic 91–156; BP diastolic 48–94
[2019-01-05] MEDS: ALBUTEROL HALF STRENGTH 1.25 MG/3 ML VIAL.NEB NEB SCH ×4 (01:12→19:22)
[2019-01-05] MEDS: IV D5/ 0.9% NACL 1,000 ML IV PRN ×2 (01:15→14:29)
[2019-01-05] MEDS: HYDROCODONE/APAP 5/325MG 1 EACH TABLET PO PRN ×2 (02:40→14:30)
[2019-01-05 04:38] LABS: CALCIUM, SERUM 7.9 mg/dL (8.5-10.1); CARBON DIOXIDE 21 mmol/L (21-32); CHLORIDE 110 mmol/L (98-107); CREATININE 0.6 mg/dL (0.6-1.3); GLUCOSE 124 mg/dL (74-106); POTASSIUM 3.5 mmol/L (3.5-5.1); SODIUM SERUM 142 mmol/L (136-145); UREA NITROGEN, BLOOD 6 mg/dL (7-18)
[2019-01-05] MEDS: NYSTATIN/TRIAMCIN CREAM 15 GM TUBE TP SCH ×2 (06:35→18:26)
--- NOTE | 2019-01-05 07:10 | NUR ---
RN INITIAL NOTES: Rec'd pt on bed, not in any distress, A/O x 1. On MV via ETT, sating at 100%. On telemonitor, Has DASIA Midline w/ D5NS 75 cc/hr infusing well. Has GT patent & intact w/ Jevity 1.2 x 25 cc/hr infusing well, 5 cc residual noted upon checking. Has FC draining to BSB. Safety precaution in place w/ bed in lowest & locked pos. Call light w/in reach. Will cont to monitor & attend pt needs.
--- NOTE | 2019-01-05 07:31 | NUR ---
RN NOTES Patient is in bed on mechanical ventilation tolerating settings well , no distress noted, no SOB noted at this time,no complaint of pain at this time. SR on industrial manufacturing technician. IVF infusing well through DASIA midline as ordered. GTT at 25ml/hr is running with 80ml of residual at this time. all safety measures are implemented, bed in low, locked position, call light in reach. will endorse patient care to am shift rn for perfect binder operator.
--- NOTE | 2019-01-05 08:00 | NUR ---
RT RECEIVED PT ORALLY INTUBATED WITH NOTED SETTINGS. 8.0 ETT AND 22CM MARKED AT THE LIP. TEDDY/ B/S. VENT ALARMS CHECKED AND AUDIBLE. VENT PLUGGED IN RED OUTLET. AMBU BAG NOTED HOB. SX WITH MOD THK KENNEY SECRETIONS. NO SOB OR RESP DISTRESS NOTED. BREATHING TX GIVEN AND NO ADV REACTION. WILL CONTINUE TO MONITOR.
[2019-01-05] MEDS: GABAPENTIN 300 MG CAPSULE PO SCH ×2 (08:18→16:55)
[2019-01-05] MEDS: ZINC SULFATE 220 MG CAPSULE PO SCH (08:18)
[2019-01-05] MEDS: DAKINS QUARTER STRENGTH (0.125%) 480 ML BOTTLE TOP SCH (08:18)
[2019-01-05] MEDS: Z GUARD REMEDY 2 OZ OINT TP SCH (08:18)
[2019-01-05] MEDS: ASCORBIC ACID 500 MG TABLET PO SCH (08:18)
[2019-01-05 08:21] LABS: ABG OXYGEN SATURATION 98.1 % (92.0-98.5); ABG PCO2 34.2 mmHg (35.0-45.0); ABG PH 7.426 (7.350-7.450); ABG PO2 117.5 mmHg (75.0-100.0); AaDO2 56.2 mmHg; COHb 0.1 % (0.5-1.5); MetHb 0.8 % (0.0-1.5); O2Hb 97.2 % (94.0-97.0); PEEP,BG 5 cm H2O; SITE, ABG Left Radial; VT, ABG 450 mL
--- NOTE | 2019-01-05 08:21 | NUR ---
RT ABG DONE AND RESULTS RELAYED TO ALIDA AMANDA.
--- NOTE | 2019-01-05 08:45 | NUR ---
0845H ABG relayed to Dr. Cochran w/ orders made to place pt on CPAP. RT made aware. ABG after 1 hour. 0900H Pt seen & examined by Dr. Cochran. dtr at bedside. Explained POC. ordered to give bolus of 250 cc NS x 1.
--- NOTE | 2019-01-05 08:54 | NUR ---
RT ABG RESULTS RELAYED TO DR BAIRD. PER PLACED PT ON CPAP PS 15 +5. ABG AN HOUR AFTER.
[2019-01-05] MEDS ORDERED: DC PROPOFOL WHEN EXTUBATED XX PRN (09:00)
[2019-01-05] MEDS ORDERED: IV NS 0.9% 250 ML IV ONE (09:30)
--- NOTE | 2019-01-05 10:00 | NUR ---
1000H ABG done while pt on CPAP & relayed to Dr. Cochran w/ orders to extubate pt. Pt tolerating NC at 2lpm. Dtr Ani at bedside.
[2019-01-05 10:22] LABS: ABG BASE EXCESS 1.5 mmol/L; ABG OXYGEN SATURATION 98.5 % (92.0-98.5); ABG PCO2 34.5 mmHg (35.0-45.0); ABG PH 7.478 (7.350-7.450); ABG PO2 134.9 mmHg (75.0-100.0); AaDO2 38.5 mmHg; COHb 0.5 % (0.5-1.5); MetHb 0.9 % (0.0-1.5); O2Hb 97.1 % (94.0-97.0); SITE, ABG Left Radial; VENT MODE, BG CPAP PS 15
--- NOTE | 2019-01-05 10:22 | NUR ---
RT ABG DONE ON PATIENT PER MD ORDER. PER DR BAIRD. EXTUBATE PATIENT.
--- NOTE | 2019-01-05 10:30 | NUR ---
RT PT EXTUBATED AND PLACED ON 2L NC. STRONG COUGH. NO STRIDOR. PT NO SOB OR DISTRESS NOTED. RN AND WIRE BRUSH MAKER AWARE. WILL CONTINUE TO MONITOR
[2019-01-05 12:33] LABS: BASOPHILS # (AUTO) 0.1 /CMM (0.0-0.2); BASOPHILS % (AUTO) 0.5 % (0.0-2.0); EOSINOPHILS % (AUTO) 1.9 % (0.0-6.0); HEMATOCRIT 26 % (39-51); HEMOGLOBIN 8.3 g/dL (13.5-17.5); LYMPHOCYTES # (AUTO) 1.5 /CMM (0.8-4.8); LYMPHOCYTES % (AUTO) 11.3 % (20.0-44.0); MEAN CORPUSCULAR HGB CONC 32 g/dl (31.0-36.0); MEAN CORPUSCULAR VOLUME 81 fL (80-96); MONOCYTES # (AUTO) 0.7 /CMM (0.1-1.30); MONOCYTES % (AUTO) 5.2 % (2.0-12.0); NEUTROPHILS # (AUTO) 11.1 /CMM (1.8-8.9); NEUTROPHILS % (AUTO) 81.1 % (43.0-81.0); PLATELET COUNT (AUTO) 515 /CMM (150-450); RED BLOOD CELL COUNT(AUTO) 3.24 MIL/uL (4.5-6.0); WHITE BLOOD COUNT (AUTO) 13.6 K/uL (4.3-11.0)
[2019-01-05] MEDS: PANTOPRAZOLE 40 MG VIAL IV SCH (16:55)
--- NOTE | 2019-01-05 18:00 | NUR ---
ROD Hernadez made aware re: high gastric residual 150cc/hr. Per RIPSAW GRADER to start on Reglan 5 mg IV q6H PRN for residual >100.
[2019-01-05] MEDS: METOCLOPRAMIDE HCL 10 MG/2 ML VIAL IV PRN (18:30)
--- NOTE | 2019-01-05 18:40 | NUR ---
RN CLOSING NOTES: Pt tolerating NC at 2lpm, no respiratory distress. On telemonitor, still ST. DASIA Midline w/ D5NS 75 cc/hr infusing well. GT kept patent & intact, feeding held at this time d/t high gastric residuals. FC kept draining to BSB. Safety precaution kept in place at all times w/ bed in lowest & locked pos. Call light w/in reach. Will endorse to PM RN for CHEN.
--- NOTE | 2019-01-05 19:35 | NUR ---
RN NOTE: RECEIVED PT ON BED AWAKE, ABLE TO ANSWER YES OR NO QUESTIONS. NO APPARENT DISTRESS NOTED. NO FACIAL GRIMACING OR ANY SIGNS OF PAIN NOTED. ON 2LPM NASAL CANNULA, NO SOB NOTED. GT INTACT AND PATENT. 60ML RESIDUAL NOTED. GARCIA CATH DRAINING WELL. RIGHT UPPER ARM MIDLINE INTACT, IVF INFUSING WELL. KEPT CLEAN, DRY AND COMFORTABLE. SAFETY AND FALL PRECAUTIONS OBSERVED AND MAINTAINED. WILL CONTINUE TO MONITOR PT.
[2019-01-05] MEDS: TAMSULOSIN 0.4 MG CAP.SR.24H PO SCH (21:10)
[2019-01-05] MEDS: MIRTAZAPINE 15 MG TABLET PO SCH (21:10)
--- NOTE | 2019-01-05 22:00 | NUR ---
RN NOTE: GTF JEVITY 1.2 ON 30ML/HR AT THIS TIME. PT ABLE TO TOLERATE FEEDING WELL WITH 5ML RESIDUAL NOTED. WILL CONTINUE TO MONITOR PT.
[2019-01-06] VITALS (23 sets, daily range): BP systolic 114–166; BP diastolic 63–93
[2019-01-06] MEDS: HYDROCODONE/APAP 5/325MG 1 EACH TABLET PO PRN ×4 (01:04→20:06)
[2019-01-06] MEDS: ALBUTEROL HALF STRENGTH 1.25 MG/3 ML VIAL.NEB NEB SCH ×4 (01:09→19:39)
[2019-01-06] MEDS: IV D5/ 0.9% NACL 1,000 ML IV PRN ×2 (03:14→20:34)
[2019-01-06 04:37] LABS: BASOPHILS # (AUTO) 0.1 /CMM (0.0-0.2); BASOPHILS % (AUTO) 0.4 % (0.0-2.0); EOSINOPHILS % (AUTO) 2.9 % (0.0-6.0); HEMATOCRIT 25 % (39-51); LYMPHOCYTES # (AUTO) 1.7 /CMM (0.8-4.8); LYMPHOCYTES % (AUTO) 13.3 % (20.0-44.0); MEAN CORPUSCULAR HGB CONC 32 g/dl (31.0-36.0); MEAN CORPUSCULAR VOLUME 82 fL (80-96); MONOCYTES # (AUTO) 0.7 /CMM (0.1-1.30); MONOCYTES % (AUTO) 5.1 % (2.0-12.0); NEUTROPHILS # (AUTO) 10.2 /CMM (1.8-8.9); NEUTROPHILS % (AUTO) 78.3 % (43.0-81.0); PLATELET COUNT (AUTO) 499 /CMM (150-450); RED BLOOD CELL COUNT(AUTO) 3.05 MIL/uL (4.5-6.0); WHITE BLOOD COUNT (AUTO) 13.1 K/uL (4.3-11.0)
[2019-01-06] MEDS: METOCLOPRAMIDE HCL 10 MG/2 ML VIAL IV PRN (04:57)
[2019-01-06 05:02] LABS: ALKALINE PHOSPHATASE 78 U/L (46-116); ASPARTATE AMINOTRANSFERASE 11 U/L (15-37); BILIRUBIN,TOTAL 0.1 mg/dL (0.2-1.0); CALCIUM, SERUM 7.9 mg/dL (8.5-10.1); CARBON DIOXIDE 25 mmol/L (21-32); CHLORIDE 110 mmol/L (98-107); CREATININE 0.6 mg/dL (0.6-1.3); GLUCOSE 126 mg/dL (74-106); MAGNESIUM 1.5 mg/dL (1.8-2.4); PHOSPHORUS 2.9 mg/dL (2.5-4.9); POTASSIUM 3.7 mmol/L (3.5-5.1); SODIUM SERUM 141 mmol/L (136-145); UREA NITROGEN, BLOOD 7 mg/dL (7-18)
[2019-01-06 05:06] LABS: ALBUMIN 1.2 g/dL (3.4-5.0)
[2019-01-06 05:12] LABS: ALANINE AMINOTRANSFERASE < 6 U/L (12-78)
[2019-01-06] MEDS: NYSTATIN/TRIAMCIN CREAM 15 GM TUBE TP SCH ×2 (06:16→17:37)
--- NOTE | 2019-01-06 06:32 | NUR ---
RN NOTE: PT IN BED RESTING WELL WITH NO ACUTE DISTRESS NOTED AT THIS TIME. NO COMPLAINTS OF PAIN OR DISCOMFORT. ON 2LPM NASAL CANNULA, NO SOB NOTED. SATURATING WELL. GT INTACT AND PATENT, WITH FEEDING JEVITY 1.2 RUNNING AT 50ML/HR, NO RESIDUAL NOTED AT THIS TIME. HEAD OF BED ELEVATED. GARCIA CATH INTACT AND PATENT, DRAINED 470ML OF URINE OUTPUT. KEPT CLEAN, DRY AND COMFORTABLE. SAFETY AND FALL PRECAUTIONS OBSERVED AND MAINTAINED. WILL ENDORSE TO DAY SHIFT RN FOR CONTINUITY OF CARE
--- NOTE | 2019-01-06 07:15 | NUR ---
RN INITIAL NOTES: Rec'd pt on bed, not in any distress, A/O x 1. On NC at 2lpm, sating at 100%. On telemonitor, Has DASIA Midline w/ D5NS 75 cc/hr infusing well. Has GT patent & intact w/ Jevity 1.2 x 50 cc/hr infusing well. Has FC draining to BSB. Safety precaution in place w/ bed in lowest & locked pos. Call light w/in reach. Will cont to monitor & attend pt needs.
[2019-01-06] MEDS: DAKINS QUARTER STRENGTH (0.125%) 480 ML BOTTLE TOP SCH (08:07)
[2019-01-06] MEDS: ASCORBIC ACID 500 MG TABLET PO SCH (08:07)
[2019-01-06] MEDS: ZINC SULFATE 220 MG CAPSULE PO SCH (08:07)
[2019-01-06] MEDS: GABAPENTIN 300 MG CAPSULE PO SCH ×2 (08:07→16:59)
[2019-01-06] MEDS: Z GUARD REMEDY 2 OZ OINT TP SCH (08:07)
--- NOTE | 2019-01-06 08:30 | NUR ---
Pt seen & examined by Dr. Cochran. said okay to transfer pt.
--- NOTE | 2019-01-06 09:25 | NUR ---
Pt seen & examined by Dr. Ilan ho to transfer pt to Telemetry. Dtr Ani called & updated about pt condition & plan of transfer.
[2019-01-06] MEDS: Magnesium 1GM/D5W 100ML PREMIX 100 ML IV SCH ×2 (11:56→13:00)
[2019-01-06] MEDS: JEVITY 1.2 CAL 1,000 ML BOTTLE GT PRN (12:05)
--- NOTE | 2019-01-06 13:30 | NUR ---
OPERATION SHIFT SUPERVISOR RECEIVING NOTES RECEIVED PT FROM ICU TO ROOM 104.ALERT/ORIENTED X1,UNDERSTAND CONCEPT.ON TELE HR IS [address]ON 2 L O2 VIA NC CONTINUOUSLY.NO SON=B AND ACUTE DISTRESS NOTED.ON FC IS IN PLACE WITH YELLOW URINE.G TUBE IS IN PLACE WITH JEVITY 1.2 @65ML/HR IS RUNNING.MINIMAL GASTRIC RESIDUAL NOTED.VITAL SIGNS CHECKED AND RECORDED.RIGHT UA MIDLINE PRESENT,SITE IS CLEAN,DRY AND INTACT.NO INFILTRATION NOTED.BED IS IN LOW POSITION AND LOCKED.CALL LIGHT IS WITHIN REACH.WILL CONTINUE TO MONITOR THE THE PT CLOSELY.
--- NOTE | 2019-01-06 13:40 | NUR ---
ACQUISITION MARKETING MANAGER NOTES: Pt transferred via bed to RM 104, tele status as ordered. Pt not in any distress, A/O x 1. VS stable. PEG & FC kept patent & intact w/ no s/sx of infection. DASIA midline, C/D/I. GTF tolerating well w/ no high residual w/in shift. Wound care done. Dtr Ani made aware of the room/ transfer. Report given to ALIDA Lombardi. All belongings sent w/ pt.
--- NOTE | 2019-01-06 16:37 | NUR ---
MS RN NOTES DR.DANNY STACY ORDERED THE PT CAN HAVE ICECREAM PER FAMILY REQUEST.NEW ORDERS NOTED AND CARRIED OUT.
[2019-01-06] MEDS: PANTOPRAZOLE 40 MG VIAL IV SCH (16:59)
--- NOTE | 2019-01-06 18:44 | NUR ---
MS RN CLOSING NOTES PT IS LYING BED.ALERT/ORIENTED X1.G TUBE AND FC IS IN PLACE,TOLERATING WELL WITH 50ML OF GASTRIC RESIDUAL.DASIA MIDLINE IS IN PLACE WITH IV FLUID IS RUNNING.NO PAIN NOTED FOR NOW.ALL DUE MEDS ARE GIVEN.RESPIRATION IS EVEN AND NONLABORED.ON 2L O2 VIA NC.NO SOB AND ACUTE DISTRESS NOTED.NO SIGNIFICANT CHANGES NOTED IN THE SHIFT.ENDORSED TO PRODUCTION SUPPORT DEVELOPER ALIDA ROA FOR CHEN.
--- NOTE | 2019-01-06 20:10 | NUR ---
PATIENT IS COMPLAINING OF PAIN8-9/10 AND BP , HR ARE ESCALATING. NORCO 5-375 PO HAS BEEN ADMINISTERED. WILL CONTINUE TO MONITOR PT CLOSELY AND RECHECK V/S IN 45MIN.
--- NOTE | 2019-01-06 20:20 | NUR ---
RICKI RN NOTES RECEIVED PT FROM AM RN ALERT/ORIENTED X2,UNDERSTAND CONCEPT,ON 2 L O2 VIA NC CONTINUOUSLY.NO SOB AND ACUTE DISTRESS NOTED AT THIS TIME. FC IS IN PLACE WITH YELLOW URINE DRAINING ON GRAVITY.G TUBE IS IN PLACE WITH JEVITY 1.2 @65ML/HR IS RUNNING.NO GASTRIC RESIDUAL NOTED.RIGHT UA MIDLINE SITE IS CLEAN,DRY AND INTACT.NO INFILTRATION NOTED.BED IS IN LOW POSITION AND LOCKED.CALL LIGHT IS WITHIN REACH.WILL CONTINUE TO MONITOR THE THE PT CLOSELY.
--- NOTE | 2019-01-06 20:45 | NUR ---
RN NOTES PATIENT'S B/P IS 160/[address] BRAND AND DR SIERRA NOTIFIED ABOUT PT V/S . NO NEW ORDERS FOR NOW.
[2019-01-06] MEDS: MIRTAZAPINE 15 MG TABLET PO SCH (22:35)
[2019-01-06] MEDS: TAMSULOSIN 0.4 MG CAP.SR.24H PO SCH (22:35)
[2019-01-06] MEDS: MORPHINE SULFATE INJ 2 MG/ML DISP.SYRIN IV PRN (22:37)
[2019-01-06] MEDS ORDERED: hydrALAZINE HCL 25 MG TABLET PO PRN (23:30)
[2019-01-06] MEDS ORDERED: CLONIDINE HCL 0.1 MG TABLET PO PRN (23:30)
--- NOTE | 2019-01-06 23:34 | NUR ---
PATIENT'S B/P IS 166/83 HR 136. CALLED MD SOFY SEVERINO AND NEW ORDERS ARE IN PLACE. WILL CONTINUE TO MONITOR PATIENT CLOSELY.
[2019-01-07] VITALS: BP 160/82
--- NOTE | 2019-01-07 00:30 | NUR ---
RN NOTES V/S RECHECKED AND PT B/P 150/75 HR 136. WILL CONTINUE TO MONITOR PATIENT CLOSELY.
[2019-01-07] MEDS: ACETAMINOPHEN 325 MG TABLET PO PRN (00:49)
--- NOTE | 2019-01-07 01:25 | NUR ---
RN NOTES CALLED MD SOFY SEVERINO ABOUT PATIENT'S HR BEING 150 AND HIGH 140'S AND NEW ORDER OF DILTIAZEM 10MG IV ONCE IS IN PLACE . WILL ADMINISTER MEDICATION AND CONTINUE TO MONITOR PATIENT CLOSELY.
[2019-01-07] MEDS: ALBUTEROL HALF STRENGTH 1.25 MG/3 ML VIAL.NEB NEB SCH ×5 (01:30→19:35)
[2019-01-07] MEDS ORDERED: DILTIAZEM HCL 25 MG IV IV ONE (01:30)
--- NOTE | 2019-01-07 01:33 | NUR ---
TX NOT GIVEN, HR > 120BPM. RN AWARE Addendum: 01/07/19 at 0133 by INÉS BARRON RT Amended: Links added.
--- NOTE | 2019-01-07 02:10 | NUR ---
RN NOTES BY DR SOFY SEVERINO ORDER CARDIZEM IV/ 10MG<2ML> HAS BEEN ADMINISTERED AT 0151 AND AT 0210 B/P IS 101/56 HR 132. WILL CONTINUE TO MONITOR PATIENT CLOSELY.
[2019-01-07 04:00] VITALS: BP 126/68
[2019-01-07] MEDS: MORPHINE SULFATE INJ 2 MG/ML DISP.SYRIN IV PRN ×2 (05:33→09:39)
[2019-01-07 06:28] LABS: CALCIUM, SERUM 7.8 mg/dL (8.5-10.1); CARBON DIOXIDE 25 mmol/L (21-32); CHLORIDE 105 mmol/L (98-107); CREATININE 0.5 mg/dL (0.6-1.3); GLUCOSE 202 mg/dL (74-106); POTASSIUM 3.8 mmol/L (3.5-5.1); SODIUM SERUM 138 mmol/L (136-145); UREA NITROGEN, BLOOD 8 mg/dL (7-18)
[2019-01-07] MEDS: NYSTATIN/TRIAMCIN CREAM 15 GM TUBE TP SCH ×2 (06:38→17:40)
--- NOTE | 2019-01-07 07:00 | NUR ---
RN NOTES PATIENT IS IN STABLE CONDITION HR 129 . NO COMPLAINTS OF PAIN AT THIS TIME. FC IS IN PLACE DRAINING YELLOW URINE ON GRAVITY. ALL NEEDS ARE ATTENDED, WOUND CARE HAS BEEN DONE. WILL ENDORSE TO AM SHIFT RN FOR FUR MACHINE OPERATOR.
--- NOTE | 2019-01-07 07:37 | NUR ---
HAIR BALER OPENING NOTES BEDSIDE REPORT GIVEN PT IS LYING BED.ALERT/ORIENTED X1 NO SIGNS OR SYMPTOMS OF RESPIRATORY DISTRESS ON 2 LTR NASAL CANNULA OR ACUTE PAIN LAST PAIN MED GIVEN @ 0600 [address]ASIA MID[address] IN PLACE WITH IV FLUID IS RUNNING D5NS @ 75 ML/HR GTF RUNNING @ 65 ML/HR NO NAUSEA VOMITING NOTED. SAFETY AND ASPIRATION PRECAUTIONS IN PLACE. SIDE RAILS X3 WILL CONT TO MONITOR Addendum: 01/09/19 at 0605 by TALI KURTZ RN WRONG ENTRY.
[2019-01-07 08:00] VITALS: BP 127/80
[2019-01-07] MEDS: GABAPENTIN 300 MG CAPSULE PO SCH ×2 (08:29→17:28)
[2019-01-07] MEDS: ASCORBIC ACID 500 MG TABLET PO SCH (08:29)
[2019-01-07] MEDS: ZINC SULFATE 220 MG CAPSULE PO SCH (08:29)
[2019-01-07] MEDS: Z GUARD REMEDY 2 OZ OINT TP SCH (08:30)
[2019-01-07] MEDS: DAKINS QUARTER STRENGTH (0.125%) 480 ML BOTTLE TOP SCH (08:30)
--- NOTE | 2019-01-07 08:30 | NUR ---
RN OPENING NOTE RECEIVED REPORT FROM CHRISTEL IRWIN. PATIENT IS AWAKE, A&Ox1 NAME ONLY. WAS ON 2L NC O2, BUT SATING 100% ON ROOM AIR. NC WAS REMOVED. HAS A GARCIA CATHETER WITH YELLOW AND CLEAR URINE. HAS MULTIPLE WOUNDS. ON GT FEEDING 65 ML/HR. NO RESIDUAL HAS BEEN NOTED. HAS A RIGHT UPPER MIDLINE WITH D5NS AT 75 ML/HR. HAS A SWALLOW EVAL FOR TODAY. ON TELE MONITOR SR. BED LOCKED AND IN LOWEST POSITION. CALL LIGHT WITHIN REACH. WILL CONT TO MONITOR
[2019-01-07] MEDS ORDERED: ALLA266C2 TP (08:46)
[2019-01-07] MEDS ORDERED: HYDR-4076 PO (08:46)
[2019-01-07] MEDS ORDERED: ALBU1.25 NEB (08:46)
[2019-01-07] MEDS ORDERED: NYST15CR2 TP (08:46)
[2019-01-07] MEDS: JEVITY 1.2 CAL 1,000 ML BOTTLE GT PRN (10:03)
[2019-01-07] MEDS: IV D5/ 0.9% NACL 1,000 ML IV PRN (11:30)
[2019-01-07 12:00] VITALS: BP 130/76
--- NOTE | 2019-01-07 12:43 | NUR ---
RN NOTE PATIENT WAS SEEN BY THE SPEECH THERAPIST. PATIENT FAILED THE SWALLOW EVAL. PATIENT IS NOW NPO WITH ONLY GT FEEDING. PATIENT WAS COMPLAINING OF PAIN THIIS MORNING BUT WAS NOT ABLE TO TELL WHERE AND PAIN LEVEL. PAIN MEDICATION WAS GIVEN BASED ON FLACC SCALE. PAIN MEDICINE WAS EFFECTIVE.
[2019-01-07 16:00] VITALS: BP 115/80
[2019-01-07] MEDS: PANTOPRAZOLE 40 MG VIAL IV SCH (17:28)
--- NOTE | 2019-01-07 18:45 | NUR ---
RN CLOSING NOTE PATIENT AWAKE, A&Ox1. HE NODS, SPEAKS ONE WORD AT A TIME. ON TELE MONITOR. HAS BEEN TACHY THROUGHOUT THE SHIFT. MD AWARE. DC PLANNING FOR TOMORROW PER MD AND BOOKKEEPING ASSISTANT. ON GTF JEVITY AT 65 ML/HR TOLERATING WELL NO RESIDUAL. ON ROOM AIR SATING >95%. NO COMPLAINS OF ANY PAIN AT THIS TIME. WILL ENDORSE TO NOC SHIFT FOR CONT OF CARE
[2019-01-07 20:00] VITALS: BP 127/85
[2019-01-07] MEDS: MIRTAZAPINE 15 MG TABLET PO SCH (21:07)
[2019-01-07] MEDS: TAMSULOSIN 0.4 MG CAP.SR.24H PO SCH (21:07)
[2019-01-07] MEDS: HYDROCODONE/APAP 5/325MG 1 EACH TABLET PO PRN (21:19)
[2019-01-08] VITALS (7 sets, daily range): BP systolic 109–149; BP diastolic 68–88
[2019-01-08] MEDS: ALBUTEROL HALF STRENGTH 1.25 MG/3 ML VIAL.NEB NEB SCH ×4 (00:52→19:36)
[2019-01-08] MEDS: JEVITY 1.2 CAL 1,000 ML BOTTLE GT PRN ×2 (02:32→17:38)
--- NOTE | 2019-01-08 06:27 | NUR ---
MORTGAGE CLERK CLOSING NOTE ENDORSED REPORT TO AM RN. PATIENT IS AWAKE, A&Ox1 . 100% ON ROOM AIR. HAS A GARCIA CATHETER WITH YELLOW AND CLEAR URINE. HAS MULTIPLE WOUNDS. ON GT FEEDING 65 ML/HR. NO RESIDUAL HAS BEEN NOTED. HAS A RIGHT UPPER MIDLINE SL. ON TELE MONITOR SR TACHY. BED LOCKED AND IN LOWEST POSITION. CALL LIGHT WITHIN REACH. WILL CONT TO MONITOR
[2019-01-08] MEDS: NYSTATIN/TRIAMCIN CREAM 15 GM TUBE TP SCH ×2 (06:30→18:31)
--- NOTE | 2019-01-08 06:44 | NUR ---
NYSTATIN POWDER NOT AVAILABLE.
--- NOTE | 2019-01-08 07:09 | NUR ---
PT OFFERED TO BE CLEANED X3, DECLINED, WILL WAIT TILL AM, INSISTED HE IS CLEAN.
--- NOTE | 2019-01-08 07:20 | NUR ---
RN OPENING NOTES RECEIVED PATIENT IN BED AWAKE, CONFUSED. ONE-WORD VERBAL ONLY. ON TELE MONITOR ST. HAS A GARCIA CATH WITH CLEAR AND YELLOW URINE. HAS RIGHT UPPER ARM MIDLINE SALINE LOCKED. NO LABS ORDERED FOR TODAY. DC PLANNING FOR TODAY. NO COMPLAINS OF ANY PAIN OR DISCOMFORT. BED LOCKED AND ON LOW POSITION. CALL LIGHT WITHIN REACH. WILL CONTINUE TO MONITOR
[2019-01-08] MEDS: GABAPENTIN 300 MG CAPSULE PO SCH ×2 (08:19→17:13)
[2019-01-08] MEDS: ZINC SULFATE 220 MG CAPSULE PO SCH (08:19)
[2019-01-08] MEDS: ASCORBIC ACID 500 MG TABLET PO SCH (08:19)
[2019-01-08] MEDS: DAKINS QUARTER STRENGTH (0.125%) 480 ML BOTTLE TOP SCH (08:24)
[2019-01-08] MEDS: Z GUARD REMEDY 2 OZ OINT TP SCH (08:25)
[2019-01-08] MEDS: PANTOPRAZOLE 40 MG VIAL IV SCH (17:13)
--- NOTE | 2019-01-08 18:37 | NUR ---
RN CLOSING NOTE PATIENT STABLE THROUGH OUT THE SHIFT. AFEBRILE. NO ACUTE DISTRESS, SOB WAS NOTED. DC PLANNING FOR TOMORROW. WILL ENDORSE TO NOC SHIFT RN
--- NOTE | 2019-01-08 20:32 | NUR ---
CLIENT PROFESSIONAL INITIAL NOTE RECEIVED REPORT FROM AM RN. PATIENT IS AWAKE, A&Ox1 . 100% ON ROOM AIR. HAS A GARCIA CATHETER WITH YELLOW AND CLEAR URINE. HAS MULTIPLE WOUNDS. ON GT FEEDING 65 ML/HR. NO RESIDUAL HAS BEEN NOTED. HAS A RIGHT UPPER MIDLINE SL. ON TELE MONITOR SR TACHY. BED LOCKED AND IN LOWEST POSITION. CALL LIGHT WITHIN REACH. WILL CONT TO MONITOR
[2019-01-08] MEDS: MIRTAZAPINE 15 MG TABLET PO SCH (21:58)
[2019-01-08] MEDS: TAMSULOSIN 0.4 MG CAP.SR.24H PO SCH (21:58)
[2019-01-08] MEDS: MORPHINE SULFATE INJ 2 MG/ML DISP.SYRIN IV PRN (21:59)
[2019-01-09] VITALS (7 sets, daily range): BP systolic 89–127; BP diastolic 55–65
[2019-01-09] MEDS: ALBUTEROL HALF STRENGTH 1.25 MG/3 ML VIAL.NEB NEB SCH ×5 (01:30→20:08)
--- NOTE | 2019-01-09 01:38 | NUR ---
RT NOTE PT HR IS 141, HELD ALBUTEROL FOR NOW TIL HR DECREASES.
[2019-01-09] MEDS: MORPHINE SULFATE INJ 2 MG/ML DISP.SYRIN IV PRN ×2 (02:54→09:23)
[2019-01-09] MEDS: HYDROCODONE/APAP 5/325MG 1 EACH TABLET PO PRN (03:18)
--- NOTE | 2019-01-09 06:06 | NUR ---
ASSEMBLY LEAD PERSON CLOSING NOTE ENDORSED TO AM RN. PATIENT IS ASLEEP, A&Ox1 . 100% ON ROOM AIR. HAS A GARCIA CATHETER WITH YELLOW AND CLEAR URINE, 800 CC. HAS MULTIPLE WOUNDS. ON GT FEEDING 65 ML/HR. NO RESIDUAL HAS BEEN NOTED. HAS A RIGHT UPPER MIDLINE SL. ON TELE MONITOR SR TACHY 130 T0 150'S, AFTER AM CARE AT 0400, PT HR STAYED AT 150, MIKE ,N MEDIA SENIOR RECRUITER NOTIFIED NNO'S. BED LOCKED AND IN LOWEST POSITION. CALL LIGHT WITHIN REACH. WILL CONT TO MONITOR
[2019-01-09] MEDS: NYSTATIN/TRIAMCIN CREAM 15 GM TUBE TP SCH ×2 (06:19→17:01)
--- NOTE | 2019-01-09 07:30 | NUR ---
rn notes received patient with hr at 150 while asleep, per night nurse Dr Lee and Dr. Mariana Lemus aware of the patient's HR. patient on with nasal cannula at 2 lpm breathing unlabored, patient sating fine. midline on the right upper extremity, in place and intact, patent on flushing. Feeding of Jevity 1.2 running at 65 cc/hr. Tube placement check through auscultation, no gastric residual taken on aspirating. barroso catheter in place, draining to clear yellow urine. safety measures observed and maintained, srx2 raised. bed low and locked position. call light placed within reach, will continue to monitor patient closely
--- NOTE | 2019-01-09 08:30 | NUR ---
RN notes DR. Lee at the unit, informed and updated on the patient' s current status. per MD, he'll look and check unto it.
[2019-01-09] MEDS: GABAPENTIN 300 MG CAPSULE PO SCH ×2 (09:21→16:58)
[2019-01-09] MEDS: ASCORBIC ACID 500 MG TABLET PO SCH (09:22)
[2019-01-09] MEDS: ZINC SULFATE 220 MG CAPSULE PO SCH (09:22)
[2019-01-09] MEDS: DAKINS QUARTER STRENGTH (0.125%) 480 ML BOTTLE TOP SCH (09:25)
[2019-01-09] MEDS: Z GUARD REMEDY 2 OZ OINT TP SCH (09:26)
--- NOTE | 2019-01-09 10:00 | NUR ---
rn notes Dr. Davis update by charge nurse on current status. per charge nurse, md will place enema order and will do bowel trial? tachycardia might be associated with constipation.
[2019-01-09] MEDS ORDERED: NA PHOS,M-B/NA PHOS,DI-BA 1 EA ENEMA RC PRN (11:30)
[2019-01-09] MEDS: ACETAMINOPHEN 325 MG TABLET PO PRN (12:23)
[2019-01-09] MEDS: PANTOPRAZOLE 40 MG VIAL IV SCH (16:58)
[2019-01-09] MEDS: MAGNESIUM HYDROXIDE 30 ML UDC PO PRN (16:59)
--- NOTE | 2019-01-09 19:18 | NUR ---
rn notes endorsed for continuity of care. not on any form of distress. no acute changes within the shift. all nursing needs attended and met. safety measures in place at all times. call light within reach
--- NOTE | 2019-01-09 20:21 | NUR ---
RN NOTE. RECEIVED THE PT REST ON THE BED. AWAKE, ALERT, DOES NOT FOLLOW COMMANDS. TARIFF COMPILING CLERK SHOWING S TACH. OXYGEN 2L VIA NASAL CANNULA. SAT 98%. NO ACUTE DISTRESS NOTED. IV RT UPPER ARM MID LINEV SALINE LOCK. GT INTACT. JEVITY 65ML/H. FC PATENT. HOB ELEVATED. WILL CONTINUE TO MONITOR VITALS.
[2019-01-09] MEDS: MIRTAZAPINE 15 MG TABLET PO SCH (22:00)
[2019-01-09] MEDS: TAMSULOSIN 0.4 MG CAP.SR.24H PO SCH (22:00)
[2019-01-09] MEDS: JEVITY 1.2 CAL 1,000 ML BOTTLE GT PRN (22:47)
[2019-01-10] VITALS (9 sets, daily range): BP systolic 97–128; BP diastolic 60–78
[2019-01-10] MEDS: ALBUTEROL HALF STRENGTH 1.25 MG/3 ML VIAL.NEB NEB SCH ×4 (02:21→19:17)
--- NOTE | 2019-01-10 03:36 | NUR ---
RN NOTE. AM CARE, ORAL CARE, BED BATH GIVEN. LINEN CHANGED, REMAINING SAME OXYGEN TOLERATED WELL. SAT 97%, CUSTOMER SALES CONSULTANT SHOWING S TACH. AFEBRILE, GT FEEDING TOLERATED WELL, FC PATENT. URINE DRAINING, HOB ELEVATED, TURN AND REPOSITION Q2H. WILL CONTINUE TO MONITOR VITALS.
[2019-01-10] MEDS: NYSTATIN/TRIAMCIN CREAM 15 GM TUBE TP SCH ×2 (06:02→17:16)
--- NOTE | 2019-01-10 07:35 | NUR ---
RT TX NOT GIVEN HR 128-132 BPM. SPO2 95%. NTS PT WITH MOD THK KENNEY SECRETIONS.
[2019-01-10] MEDS: GABAPENTIN 300 MG CAPSULE PO SCH ×2 (09:21→17:15)
[2019-01-10] MEDS: ASCORBIC ACID 500 MG TABLET PO SCH (09:21)
[2019-01-10] MEDS: ZINC SULFATE 220 MG CAPSULE PO SCH (09:21)
[2019-01-10] MEDS: MAGNESIUM HYDROXIDE 30 ML UDC PO PRN (09:25)
[2019-01-10] MEDS: Z GUARD REMEDY 2 OZ OINT TP SCH (09:25)
[2019-01-10] MEDS: DAKINS QUARTER STRENGTH (0.125%) 480 ML BOTTLE TOP SCH (09:27)
[2019-01-10 10:40] LABS: BASOPHILS # (AUTO) 0.1 /CMM (0.0-0.2); BASOPHILS % (AUTO) 0.5 % (0.0-2.0); EOSINOPHILS % (AUTO) 1.7 % (0.0-6.0); HEMATOCRIT 22 % (39-51); LYMPHOCYTES # (AUTO) 1.2 /CMM (0.8-4.8); LYMPHOCYTES % (AUTO) 8.8 % (20.0-44.0); MEAN CORPUSCULAR HGB CONC 32 g/dl (31.0-36.0); MEAN CORPUSCULAR VOLUME 81 fL (80-96); MONOCYTES # (AUTO) 0.5 /CMM (0.1-1.30); MONOCYTES % (AUTO) 3.7 % (2.0-12.0); NEUTROPHILS # (AUTO) 11.8 /CMM (1.8-8.9); NEUTROPHILS % (AUTO) 85.3 % (43.0-81.0); PLATELET COUNT (AUTO) 533 /CMM (150-450); RED BLOOD CELL COUNT(AUTO) 2.68 MIL/uL (4.5-6.0); WHITE BLOOD COUNT (AUTO) 13.8 K/uL (4.3-11.0)
[2019-01-10 10:49] LABS: HEMOGLOBIN 6.9 g/dL (13.5-17.5)
[2019-01-10 10:52] LABS: ALANINE AMINOTRANSFERASE 14 U/L (12-78); ALKALINE PHOSPHATASE 125 U/L (46-116); ASPARTATE AMINOTRANSFERASE 22 U/L (15-37); BILIRUBIN,TOTAL 0.1 mg/dL (0.2-1.0); CALCIUM, SERUM 8.2 mg/dL (8.5-10.1); CARBON DIOXIDE 27 mmol/L (21-32); CHLORIDE 104 mmol/L (98-107); CREATININE 0.5 mg/dL (0.6-1.3); GLUCOSE 218 mg/dL (74-106); MAGNESIUM 2.1 mg/dL (1.8-2.4); PHOSPHORUS 2.4 mg/dL (2.5-4.9); POTASSIUM 4.3 mmol/L (3.5-5.1); SODIUM SERUM 136 mmol/L (136-145); TOTAL PROTEIN, SERUM 6.1 g/dL (6.4-8.2); UREA NITROGEN, BLOOD 15 mg/dL (7-18)
[2019-01-10 11:02] LABS: ALBUMIN 1.1 g/dL (3.4-5.0)
[2019-01-10 11:33] LABS: LYMPHOCYTES % (MANUAL) 12 % (16-48); MONOCYTES % (MANUAL) 4 % (0-11.0); NEUTROPHILS % (MANUAL) 84 (42-76)
[2019-01-10] MEDS ORDERED: IV D5/ 0.9% NACL 1,000 ML IV PRN (13:17)
[2019-01-10] MEDS ORDERED: MORPHINE SULFATE INJ 2 MG/ML DISP.SYRIN IV PRN (13:30)
[2019-01-10] MEDS ORDERED: HYDROCODONE/APAP 5/325MG 1 EACH TABLET PO PRN ×2 (13:30)
[2019-01-10] MEDS: PANTOPRAZOLE 40 MG VIAL IV SCH (17:16)
--- NOTE | 2019-01-10 19:17 | NUR ---
RT NOTE PT HR IS 130 SPO2 96%; ALBUTEROL TX IS BEING HELD FOR NOW.
--- NOTE | 2019-01-10 19:36 | NUR ---
PRBC TRANSFUSION IN PROGRESS NO REACTION NOTED.
--- NOTE | 2019-01-10 19:40 | NUR ---
MS RN NOTE PATIENT REPORT GIVEN BEDSIDE. PATIENT IN BED A/O X 1. ABLE TO RESPOND TO YES OR NO QUESTIONS. PATIENT ON BLOOD TRANSFUSION RUNNING 100 ML/ HOUR. NO S/S OF ADVERSE REACTIONS. PATIENT TOLERATING TRANSFUSION RATE WELL. BREATHING EVEN AND UNLABORED. PATIENT HR AT BASELINE ST IN 120'S. SAFETY PRECAUTIONS IN PLACE. RN WILL CONTINUE TO MONITOR.
--- NOTE | 2019-01-10 21:06 | NUR ---
MS RN NOTE BLOOD TRANSFUSION COMPLETED NO S/S OF ADVERSE REACTION.
--- NOTE | 2019-01-10 21:21 | NUR ---
MS RN NOTE PATIENT READJUSTED FOR COMFORT.
[2019-01-10] MEDS: TAMSULOSIN 0.4 MG CAP.SR.24H PO SCH (22:04)
[2019-01-10] MEDS: MIRTAZAPINE 15 MG TABLET PO SCH (22:04)
[2019-01-10] MEDS: ACETAMINOPHEN 325 MG TABLET PO PRN (23:35)
[2019-01-11] VITALS: BP 101/67
[2019-01-11] MEDS: ALBUTEROL HALF STRENGTH 1.25 MG/3 ML VIAL.NEB NEB SCH ×4 (00:35→19:30)
[2019-01-11 04:00] VITALS: BP 100/59
[2019-01-11] MEDS: NYSTATIN/TRIAMCIN CREAM 15 GM TUBE TP SCH (06:36)
--- NOTE | 2019-01-11 06:52 | NUR ---
SECURITY SYSTEMS SPECIALIST NOTE PATIENT TOLERATED THE NIGHT WELL. NOT ACUTE CHANGES THROUGH THE NIGHT, ALL CARE RENDERED. SAFETY PRECAUTIONS IN PLACE. ENDORSED POC TO AM FOR CHEN.
--- NOTE | 2019-01-11 07:10 | NUR ---
MS RN OPENING NOTE RECEIVED REPORT FR4OM PM NURSE.PATIENT IN BED AWAKE ,OPEN EYES. BREATHING EVEN AND UNLABORED.ON O2 2L VIA NASAL CANULA.SATURATING 100%. TACHYCARDIA. HR 110 IN BEDSIDE SPO2 MONITOR . SAFETY PRECAUTIONS IN PLACE. BED IS LOW AND IN LOCKED POSITION.CALL LIGHT IN REACH.SRX3.BED ALARM ON.WILL CONTINUE TO MONITOR.
[2019-01-11 07:35] LABS: BASOPHILS # (AUTO) 0.1 /CMM (0.0-0.2); BASOPHILS % (AUTO) 0.4 % (0.0-2.0); EOSINOPHILS % (AUTO) 2.3 % (0.0-6.0); HEMATOCRIT 25 % (39-51); HEMOGLOBIN 8.2 g/dL (13.5-17.5); LYMPHOCYTES # (AUTO) 1.3 /CMM (0.8-4.8); LYMPHOCYTES % (AUTO) 11.3 % (20.0-44.0); MEAN CORPUSCULAR HGB CONC 33 g/dl (31.0-36.0); MEAN CORPUSCULAR VOLUME 79 fL (80-96); MONOCYTES # (AUTO) 0.5 /CMM (0.1-1.30); MONOCYTES % (AUTO) 4.1 % (2.0-12.0); NEUTROPHILS # (AUTO) 9.8 /CMM (1.8-8.9); NEUTROPHILS % (AUTO) 81.9 % (43.0-81.0); PLATELET COUNT (AUTO) 500 /CMM (150-450); RED BLOOD CELL COUNT(AUTO) 3.19 MIL/uL (4.5-6.0)
[2019-01-11 07:44] LABS: ALANINE AMINOTRANSFERASE 17 U/L (12-78); ALKALINE PHOSPHATASE 147 U/L (46-116); ASPARTATE AMINOTRANSFERASE 26 U/L (15-37); BILIRUBIN,TOTAL 0.2 mg/dL (0.2-1.0); CALCIUM, SERUM 8.3 mg/dL (8.5-10.1); CARBON DIOXIDE 28 mmol/L (21-32); CHLORIDE 107 mmol/L (98-107); CREATININE 0.5 mg/dL (0.6-1.3); GLUCOSE 111 mg/dL (74-106); MAGNESIUM 2.3 mg/dL (1.8-2.4); PHOSPHORUS 2.8 mg/dL (2.5-4.9); POTASSIUM 4.3 mmol/L (3.5-5.1); SODIUM SERUM 138 mmol/L (136-145); TOTAL PROTEIN, SERUM 6.5 g/dL (6.4-8.2); UREA NITROGEN, BLOOD 16 mg/dL (7-18)
[2019-01-11 08:00] VITALS: BP 121/75
[2019-01-11 08:01] LABS: ALBUMIN 1.1 g/dL (3.4-5.0)
[2019-01-11] MEDS: ZINC SULFATE 220 MG CAPSULE PO SCH (08:22)
[2019-01-11] MEDS: GABAPENTIN 300 MG CAPSULE PO SCH ×2 (08:22→16:49)
[2019-01-11] MEDS: ASCORBIC ACID 500 MG TABLET PO SCH (08:22)
[2019-01-11] MEDS: Z GUARD REMEDY 2 OZ OINT TP SCH (08:23)
[2019-01-11] MEDS: DAKINS QUARTER STRENGTH (0.125%) 480 ML BOTTLE TOP SCH (08:23)
[2019-01-11] MEDS: ACETAMINOPHEN 325 MG TABLET PO PRN ×3 (09:54→19:46)
--- NOTE | 2019-01-11 13:03 | NUR ---
MS RN NOTE GOT CALL FROM [facility],SPOKE TO DAO ,TOLD THAT PATIENT WILL BE ON HOSPICE WHILE DISCHARGE.ED SPECIAL EDUCATION TEACHER MIKE MADE AWARE.GAVE INFORMATION.SPOKE TO ANI DAUGHTER TO CLARIFY HOSPICE ORDER,OK TO D/C HOME WITH HOSPICE.SEEN BY ,UPDATED ABOUT PATIENT CONDITION WITH LABS AND ELEVATED TEMP.GOT ORDER FOR D/C HOME WITH [facility].MIKE ED SPECIAL EDUCATION TEACHER MADE AWARE.
[2019-01-11 16:00] VITALS: BP 102/70
[2019-01-11] MEDS: PANTOPRAZOLE 40 MG VIAL IV SCH (16:49)
--- NOTE | 2019-01-11 19:11 | NUR ---
MS RN CLOSING NOTE PATIENT IN BED AWAKE,AXOX1 ,OPEN EYES. BREATHING EVEN AND UNLABORED.ON O2 2L VIA NASAL CANULA.SATURATING 100%. TACHYCARDIA. HR 114 IN BEDSIDE SPO2 MONITOR .ON GTF JEVITY ,TOLERATING WELL. SAFETY PRECAUTIONS IN PLACE. BED IS LOW AND IN LOCKED POSITION.CALL LIGHT IN REACH.SRX3.BED ALARM ON.D/C HOME WITH [facility] UNDER AAA TOMORROW.USABILITY STRATEGIST 1100AM.DAUGHTER ANI AWARE.ENDORSED TO PM NURSE FOR CHEN.
[2019-01-11 20:00] VITALS: BP 152/92
--- NOTE | 2019-01-11 20:17 | NUR ---
RN OPENING NOTES RECEIVED REPORT FROM EVANGELINA IRWIN. PATIENT A/A/O X1 TO NAME & UNABLE TO MAKE NEEDS KNOWN. BREATHING EVEN & UNLABORED, TOLERATING 02 @ 2LPM VIA NC. NO S/S OF RESPIRATORY DISTRESS. RADIAL PULSES PRESENT W/ TACHY 140S ON SPO2 MONITOR. NOTED W/ ELEVATED TEMP, TYLENOL TO BE GIVEN. RIGHT UPPER ARM MIDLINE INTACT & PATENT W/ DRESSING CDI, SALINE LOCKED. G-TUBE PATENT & FLUSHING WELL, TOLERATING JEVITY @ 65 ML/HR. NO RESIDUAL NOTED @ THIS TIME. NO S/S OF PAIN OR DISCOMFORT @ THIS TIME. SAFETY MEASURES IN PLACE W/ SIDE RAILS UP & BED ALARM ON. HOB ELEVATED FOR ASPIRATION PRECAUTIONS. WILL CONTINUE TO MONITOR.
[2019-01-11] MEDS: TAMSULOSIN 0.4 MG CAP.SR.24H PO SCH (22:02)
[2019-01-11] MEDS: MIRTAZAPINE 15 MG TABLET PO SCH (22:02)
[2019-01-12] MEDS: ALBUTEROL HALF STRENGTH 1.25 MG/3 ML VIAL.NEB NEB SCH ×2 (01:30→07:28)
[2019-01-12] MEDS: JEVITY 1.2 CAL 1,000 ML BOTTLE GT PRN (03:35)
[2019-01-12 04:00] VITALS: BP 111/71
[2019-01-12 08:00] VITALS: BP 147/78
[2019-01-12] MEDS: GABAPENTIN 300 MG CAPSULE PO SCH (08:50)
[2019-01-12] MEDS: ASCORBIC ACID 500 MG TABLET PO SCH (08:50)
[2019-01-12] MEDS: ZINC SULFATE 220 MG CAPSULE PO SCH (08:51)
[2019-01-12] MEDS: Z GUARD REMEDY 2 OZ OINT TP SCH (08:52)
[2019-01-12] MEDS: DAKINS QUARTER STRENGTH (0.125%) 480 ML BOTTLE TOP SCH (08:52)
--- NOTE | 2019-01-12 08:57 | NUR ---
MS RN NOTES RECEIVED PT IN BED AWAKE. PT IS ALERT AND ORIENTED X1. NON VERBAL. PT HAS F/C DRAINING WITH YELLOW COLOR. PT HAS A RIGHT UPPER ARM MIDLINE IN PLACE. NO S/S OF INFECTION. HOB ELEVATED AT ALL TIMES. PT ON JEVITY 1.2 @ 65CC/HR. NO RESIDUAL NOTED. PT ON KCI MATTRESS. BED LOW AND IN LOCKED POSITION. PLAN OF CARE DISCUSSED WITH PATIENT. ALL NEEDS ANTICIPATED. SAFETY MEASURES OBSERVED. WILL CONTINUE PLAN OF CARE.
--- NOTE | 2019-01-12 11:41 | NUR ---
MS RN NOTE CALLED DAUGHTER JOSH AWARE THAT PATIENT WILL BE DISCHARGE ,PER AWNING ERECTOR AND DR NOELLE BARRIENTOS TO LEAVE GARCIA CATH .PATIENT WILL BE ON HOSPICE
--- NOTE | 2019-01-12 12:22 | NUR ---
MS RN NOTES AMBULANCE AT BEDSIDE REPORT GIVEN. GARCIA CATH INTACT AND PATENT. RIGHT UPPER ARM MIDLINE REMOVED. NO S/S OF INFECTION. BELONGINGS CHECKED. PT WENT HOME IN STABLE CONDITION.
== END 2019-01-12 12:34 | disposition home health service (06) | DRG 853 ==
LOC: ER 22:04 → ICU 12-24 00:41 → TELE-TD 12-26 20:38 → MEDSG1 12-27 10:27 → ICU 01-04 11:19 → TELE1 01-06 13:36 → MEDSG1 01-06 16:14 → TELE1 01-06 23:22 → MEDSG1 01-10 15:24
PROVIDERS: ADMIT Internal Medicine; ATTEND Internal Medicine
PROC: 05H533Z Insertion of Infusion Device into Right Subclavian Vein, Percutaneous Approach (ICD-10-PCS; 2018-12-24)
PROC: B546ZZA Ultrasonography of Right Subclavian Vein, Guidance (ICD-10-PCS; 2018-12-24)
PROC: 0KBP0ZZ Excision of Left Hip Muscle, Open Approach (ICD-10-PCS; principal; 2019-01-02)
PROC: 0KBN0ZZ Excision of Right Hip Muscle, Open Approach (ICD-10-PCS; 2019-01-02)
PROC: 0DH63UZ Insertion of Feeding Device into Stomach, Percutaneous Approach (ICD-10-PCS; 2019-01-04)
PROC: 5A1935Z Respiratory Ventilation, Less than 24 Consecutive Hours (ICD-10-PCS; 2019-01-04)
PROC: 30233N1 Transfusion of Nonautologous Red Blood Cells into Peripheral Vein, Percutaneous Approach (ICD-10-PCS; 2019-01-10)
DX: A41.9 Sepsis, unspecified organism (principal); L89.154 Pressure ulcer of sacral region, stage 4; L89.014 Pressure ulcer of right elbow, stage 4; L89.224 Pressure ulcer of left hip, stage 4; L89.214 Pressure ulcer of right hip, stage 4; J96.00 Acute respiratory failure, unspecified whether with hypoxia or hypercapnia; R65.21 Severe sepsis with septic shock; R53.2 Functional quadriplegia; E43 Unspecified severe protein-calorie malnutrition; G92 Toxic encephalopathy; J69.0 Pneumonitis due to inhalation of food and vomit; J15.9 Unspecified bacterial pneumonia; N39.0 Urinary tract infection, site not specified; E87.0 Hyperosmolality and hypernatremia; Z68.1 Body mass index [BMI] 19.9 or less, adult; E87.2 Acidosis; M86.8X8 Other osteomyelitis, other site; J98.11 Atelectasis; E86.0 Dehydration; E78.5 Hyperlipidemia, unspecified; E87.6 Hypokalemia; I10 Essential (primary) hypertension; I25.10 Atherosclerotic heart disease of native coronary artery without angina pectoris; K21.9 Gastro-esophageal reflux disease without esophagitis; M24.561 Contracture, right knee; M24.562 Contracture, left knee; D64.9 Anemia, unspecified; Z86.73 Personal history of transient ischemic attack (TIA), and cerebral infarction without residual deficits; R13.10 Dysphagia, unspecified; M62.50 Muscle wasting and atrophy, not elsewhere classified, unspecified site; L98.8 Other specified disorders of the skin and subcutaneous tissue; R62.7 Adult failure to thrive; Z79.82 Long term (current) use of aspirin; G62.9 Polyneuropathy, unspecified; Z91.018 Allergy to other foods; Z79.51 Long term (current) use of inhaled steroids; Z79.899 Other long term (current) drug therapy; Z79.01 Long term (current) use of anticoagulants; L98.9 Disorder of the skin and subcutaneous tissue, unspecified; L30.4 Erythema intertrigo; K59.03 Drug induced constipation; T40.605A Adverse effect of unspecified narcotics, initial encounter; Y92.129 Unspecified place in nursing home as the place of occurrence of the external cause
CPT/HCPCS: 31720; 36415; 36569; 36600; 43246; 71045-TC; 74230-TC; 80048-TC; 80053-TC; 80076-TC; 80202-TC; 81000-TC; 82272-TC; 82728-TC; 82803-TC; 82962-TC; 83540-TC; 83605-TC; 83735-TC; 84100-TC; 84132-TC; 84134-TC; 84443-TC; 84484-TC; 85025-TC; 85610-TC; 85730-TC; 86850-TC; 86921-TC; 87040-TC; 87081-TC; 87086-TC; 92526; 92611-TC; 93307-TC; 94002-TC; 94003-TC; 94760-TC; 94762-TC; 94799-TC; A4624; A6253; A6402; A6403; C9113; G0378; J1650; J1940; J2270; J2543; J2704; J2765; J3370; J3475; J3480; J3490; J7030; J7040; J7042; J7050; J7060; J7070; P9016-BL